=== PATIENT | male | born 1940 | race Caucasian/White ===

== ENCOUNTER 2022-06-18 13:34 | Outpatient (CLI) | payer MEDICARE, BC, SELFPAY ==
[2022-06-18 22:10] LABS: Chloride* 102 mmol/L (96-114); Potassium* 4.6 mmol/L (3.6-5.1); Sodium* 139 mmol/L (135-149)
[2022-06-18 22:12] LABS: Bilirubin Total* 0.9 mg/dL (0.1-1.5); Carbon Dioxide* 30 mmol/L (20-32); Cholesterol* 133 mg/dL (90-199); Creatinine* 0.8 mg/dL (0.5-1.5); Estimated Glomerular Filt Rate 89 ml/min
[2022-06-18 22:13] LABS: Alanine Aminotransferase* 23 U/L (4-50); Alkaline Phosphatase* 107 U/L (40-150); Aspartate Amino Transferase* 30 U/L (12-35); Blood Urea Nitrogen* 15 mg/dL (7-30); Calcium* 8.9 mg/dL (8.4-10.6); Glucose* 88 mg/dL (60-115); HDL Cholesterol* 60 mg/dL (>=40); LDL Cholesterol Calculated 57 mg/dL (<100); Magnesium* 1.9 mg/dL (1.5-2.6); Total Protein* 6.3 g/dL (6.0-8.3); Triglycerides* 82 mg/dL (40-149)
[2022-06-18 22:19] LABS: Creatinine Urine 123.2 mg/dL
[2022-06-18 22:20] LABS: NT Pro B Type NatriureticPept* 338 PG/mL (0-450)
[2022-06-18 22:24] LABS: Microalbumin Creatinine Ratio 0 mg/g (0-30); Microalbumin Urine 1 mg/dL
[2022-06-18 22:41] LABS: PSA Screen* 0.87 ng/mL (0.10-4.00)
[2022-06-18 23:01] LABS: Vitamin B12* 244 pg/mL (243-894)
== END 2022-06-18 13:35 | disposition home or self-care (01) ==
PROVIDERS: PCP Family Medicine; Visit Provider Family Medicine
DX: Z00.00 Encounter for general adult medical examination without abnormal findings (principal); E78.5 Hyperlipidemia, unspecified; I10 Essential (primary) hypertension; I25.10 Atherosclerotic heart disease of native coronary artery without angina pectoris; Z12.5 Encounter for screening for malignant neoplasm of prostate; I21.9 Acute myocardial infarction, unspecified; R06.09 Other forms of dyspnea
CPT/HCPCS: 80053; 80061; 82043; 82570; 82607; 83735; 83880; 84153

== ENCOUNTER 2022-06-19 13:39 | Outpatient (CLI) | payer MEDICARE, BC, SELFPAY ==
[2022-06-23 09:54] LABS: Cryptosporidium by PCR Not Detected; Cyclospora cayetanensis by PCR Not Detected; Dientamoeba fragilis by PCR Not Detected; Entamoeba histolytica by PCR Not Detected; Giardia by PCR Not Detected
== END 2022-06-19 13:40 | disposition home or self-care (01) ==
PROVIDERS: PCP Family Medicine; Visit Provider Family Medicine
DX: R19.7 Diarrhea, unspecified (principal)
CPT/HCPCS: 82270; 87045; 87046; 87427; 87505

== ENCOUNTER 2023-08-19 14:36 | Outpatient (CLI) | payer MEDICARE, BC, SELFPAY | END 2023-08-19 14:37 | disposition home or self-care (01) | LOC: FRMREF 14:38 | PROVIDERS: PCP Family Medicine; Visit Provider Dermatology | DX: I10 Essential (primary) hypertension (principal); L30.9 Dermatitis, unspecified | CPT/HCPCS: 80053 ==

== ENCOUNTER 2024-01-31 11:02 | Outpatient (CLI) | payer MEDICARE, BC, SELFPAY | END 2024-01-31 11:03 | disposition home or self-care (01) | PROVIDERS: PCP Physician Assistant Medical; Visit Provider Physician Assistant Medical | DX: I10 Essential (primary) hypertension (principal); E78.5 Hyperlipidemia, unspecified; I25.810 Atherosclerosis of coronary artery bypass graft(s) without angina pectoris | CPT/HCPCS: 80053; 80061; 84443 ==

== ENCOUNTER 2024-03-21 16:27 | Inpatient (IN) | payer MEDICARE, BC, SELFPAY ==
[2024-03-21] VITALS (24 sets, daily range): BP systolic 85–117; BP diastolic 26–68; PULSE 51–81; RESP 18; TEMP 36.3–36.4; O2SAT 92–100; BMI 22.3
--- NOTE | 2024-03-21 16:52 | CRLHL7_ITS ---
For Patients: As a result of the Century Cures Act, medical imaging exams and procedure reports are released immediately into your electronic medical record. You may view this report before your referring provider. If you have questions, please contact your health care provider. INDICATION: Abdominal pain. Diarrhea. TECHNIQUE: Multiplanar CT examination of the abdomen and pelvis was performed after the administration of 84 mL Omnipaque 350 intravenous contrast. COMPARISON: None. FINDINGS: Lower chest: No focal consolidation. Normal heart size. No pleural effusions or pneumothorax. Subsegmental atelectasis. Small hiatal hernia. Liver: Unremarkable. Gallbladder: Unremarkable. Biliary: Unremarkable. Pancreas: Within normal limits. Spleen: Unremarkable. Adrenal glands: Unremarkable. Renal/ureters/bladder: Normal in size and symmetrically enhancing. No obstructive uropathy. No hydronephrosis or obstructive urinary calculi. No suspicious renal masses. The ureters appear unremarkable. Underdistended bladder, however appears severely thick-walled diffusely. Pelvis: Mildly enlarged prostate. Gastrointestinal: Mild wall thickening and hyperenhancement involving loops of nondistended fluid-filled small bowel diffusely. There is also mild wall thickening involving the fluid-filled colon throughout its entirety. No bowel obstruction. Nonvisualized appendix. No significant colonic diverticulosis. Vasculature: No aortic aneurysm. The portal vein remains patent. Severe atherosclerotic calcifications. Lymph nodes: No pathologic lymphadenopathy by size criteria. Peritoneum: No free fluid or pneumoperitoneum. No drainable fluid collections. Abdominal wall/soft tissues: Unremarkable. Bones: No acute osseous abnormalities. IMPRESSION: 1. Findings compatible with a nonspecific infectious versus inflammatory enterocolitis. No bowel obstruction. 2. Severe diffuse bladder wall thickening, raises the possibility of an underlying cystitis. Advise correlation with urinalysis. 3. Small hiatal hernia. Please note that all CT scans at this facility use dose modulation, iterative reconstruction, and/or weight-based dosing when appropriate to reduce radiation dose to as low as reasonably achievable. Dictated by Isidro Vázquez MD @ 03/21/2024 7:06:51 PM (Electronically Signed)
--- NOTE | 2024-03-21 17:03 | ED_ITS ---
HPI - General Adult General Chief complaint: Weakness Stated complaint: weakness Time Seen by Provider: 03/21/24 16:34 Source: patient Mode of arrival: EMS Limitations: no limitations History of Present Illness HPI narrative: Patient is an 83-year-old male with a history of hypertension, coronary artery disease presenting to the emergency department for weakness and diarrhea. States he has been having issues with diarrhea for the past month. Was hospitalized and dilute with for UTI and blood in his stool it was placed on antibiotics and discharged. Has not noticed any blood in his stool since then but cannot say for certain that there has not been any. States the diarrhea has been on and off since then and his most recent formed stool was about 2 weeks ago. States since then it has been watery. States he has been having watery diarrhea all day today and he was on the toilet for about 2 hours prior to arrival he states. He also had episode of emesis and he was given Zofran by EMS. Patient denies fevers or chills but does feel weak and lightheaded. Denies chest pain, shortness of breath, dizziness, numbness, headache, vision changes. Is having some mild generalized abdominal pain. Has not had any dysuria. Was on antibiotics for the UTI last month but no antibiotics since then. Related Data Home Medications ?Medication ?Instructions ?Recorded ?Confirmed aspirin 81 mg tablet,delayed 81 mg PO QDAY 03/19/22 01/31/24 release hydroxyzine HCl 25 mg tablet mg PO 05/06/23 01/31/24 Previous Rx's ?Medication ?Instructions ?Recorded azathioprine 50 mg tablet 50 mg PO BID #60 tabs 08/24/23 albuterol sulfate 90 mcg/actuation 2 puff inhalation Q4-6H PRN 01/31/24 aerosol inhaler shortness of breath or wheezing #8.5 grams atorvastatin 80 mg tablet 80 mg PO QDAY #90 tabs 01/31/24 clopidogrel 75 mg tablet 75 mg PO QDAY #90 tabs 01/31/24 lisinopril 20 mg tablet 20 mg PO DAILY #90 tabs 01/31/24 metoprolol succinate 25 mg 25 mg PO QDAY #90 tabs 01/31/24 tablet,extended release 24 hr montelukast 10 mg tablet 10 mg PO QPM #90 tabs 01/31/24 tamsulosin 0.4 mg capsule 0.4 mg PO QDAY #90 caps 01/31/24 tiotropium bromide 18 mcg capsule 1 cap inhalation QDAY #90 01/31/24 with inhalation device (Spiriva inhalations with HandiHaler) Allergies Allergy/AdvReac Type Severity Reaction Status Date / Time No Known Drug Allergies Allergy Verified 03/21/24 18:55 Review of Systems Status of ROS: Reports: 10 or more systems reviewed and unremarkable except as noted in History and below PFSH PFS Medical History History of NV (myocardial infarction) ?I25.2 - Old myocardial infarction (ICD-10) Back pain ?M54.9 - Dorsalgia, unspecified (ICD-10) Actinic keratosis of right cheek ?L57.0 - Actinic keratosis (ICD-10) History of myocardial infarct at age greater than 60 years ?I25.2 - Old myocardial infarction (ICD-10) Surgical History History of colonoscopy with polypectomy ?Z98.890 - Other specified postprocedural states (ICD-10) ?Z86.010 - Personal history of colonic polyps (ICD-10) History of cataract extraction ?Z98.49 - Cataract extraction status, unspecified eye (ICD-10) Family History Father Cancer Social History Narrative: Retired from [employer] cigar smoker consumes alcohol occasionally does not use illicit drugs Smoking Status: Current every day smoker Do you use any of these nicotine containing products: None Second hand tobacco smoke exposure: No How often do you have a drink containing alcohol: never How often do you have six or more drinks on one occasion: Never AUDIT-C Alcohol total score: 0 Non-prescribed substance use: denies use service: No Exam Narrative: Exam Narrative: Const: Well-nourished, Well-developed, in mild distress Eyes: PERRL, no conjunctival injection, and symmetrical lids HENT: Atraumatic external nose and ears. Moist mucous membranes. Neck: Symmetric, trachea midline, No thyromegaly. CVS: RRR, No murmurs or gallops. Peripheral pulses 2+ and equal in all extremities RESP: Unlabored respiratory effort. Clear to auscultation bilaterally. GI: Diffuse mild abdominal tenderness, Nondistended, No rebound or guarding. MSK:Extremities w/o deformity, Normal Active ROM Skin: Warm, Dry. No rashes or lesions. Neuro: Normal Muscle tone, No focal neurological deficits. Psych: Awake, Alert, & Oriented x3. Appropriate mood and affect. Const: Vital Signs, click to edit/add: Vital Signs - 24 hr 03/21/24 16:34 03/21/24 16:55 03/21/24 16:59 Temperature 97.4 F L Pulse Rate 60 58 L Pulse Rate [Right Pulse Oximeter] 60 Respiratory Rate 18 Blood Pressure 96/52 L Blood Pressure [Ri ght Upper Arm] 95/52 L Pulse Oximetry 97 99 99 [facility] 03/21/24 17:00 03/21/24 17:02 03/21/24 17:03 Temperature Pulse Rate 51 L 53 L 51 L Pulse Rate [Right Pulse Oximeter] Respiratory Rate Blood Pressure 95/46 L Blood Pressure [Ri ght Upper Arm] Pulse Oximetry 99 100 99 Oxygen Delivery Vt thod 03/21/24 17:15 03/21/24 17:23 03/21/24 17:30 Temperature Pulse Rate 65 64 51 L Pulse Rate [Right Pulse Oximeter] Respiratory Rate Blood Pressure 101/50 L Blood Pressure [Ri ght Upper Arm] Pulse Oximetry 95 97 96 Oxygen Delivery Vt thod 03/21/24 17:42 03/21/24 17:45 03/21/24 18:00 Temperature Pulse Rate 60 58 L 56 L Pulse Rate [Right Pulse Oximeter] Respiratory Rate Blood Pressure 96/68 Blood Pressure [Ri ght Upper Arm] Pulse Oximetry 98 98 93 Oxygen Delivery Vt thod 03/21/24 18:02 03/21/24 18:15 03/21/24 18:22 Temperature Pulse Rate 56 L 57 L 56 L Pulse Rate [Right Pulse Oximeter] Respiratory Rate Blood Pressure 102/51 L 85/26 L Blood Pressure [Ri ght Upper Arm] Pulse Oximetry 93 98 98 Oxygen Delivery Vt thod 03/21/24 18:27 03/21/24 18:30 Temperature Pulse Rate 53 L 62 Pulse Rate [Right Pulse Oximeter] Respiratory Rate Blood Pressure 107/50 L Blood Pressure [Ri ght Upper Arm] Pulse Oximetry 96 97 Oxygen Delivery Me thod Course Vital Signs Vital signs: Initial Vital Signs Temperature 97.4 F L 03/21/24 16:34 Temperature Source Temporal Artery Scan 03/21/24 16:34 Pulse Rate 60 03/21/24 16:34 Respiratory Rate 18 03/21/24 16:34 Blood Pressure 95/52 L 03/21/24 16:34 Blood Pressure Mean 66 L 03/21/24 16:34 Blood Pressure Position Supine 03/21/24 16:34 Pulse Oximetry 97 03/21/24 16:34 Oxygen Delivery Method Room Air 03/21/24 16:34 Vital Signs Temperature 97.4 F L 03/21/24 16:34 Pulse Rate 60 03/21/24 16:34 Respiratory Rate 18 03/21/24 16:34 Blood Pressure 95/52 L 03/21/24 16:34 Pulse Oximetry 97 03/21/24 16:34 Oxygen Delivery Method Room Air 03/21/24 16:34 Temperature 97.4 F L 03/21/24 16:34 Pulse Rate 62 03/21/24 18:30 Respiratory Rate 18 03/21/24 16:34 Blood Pressure 107/50 L 03/21/24 18:27 Pulse Oximetry 97 03/21/24 18:30 Oxygen Delivery Method Room Air 03/21/24 16:34 Medications Administered Medications: Discontinued Medications Generic Name Dose Route Start Last Admin Trade Name Freq PRN Reason Stop Dose Admin Sodium Chloride 1,000 mls @ 1,000 mls/hr 03/21/24 17:00 03/21/24 17:08 0.9 % Sodium Chloride 1000 Ml IV 03/21/24 17:59 1,000 mls/hr .Q1H PAM Administration Lactated Ringer's 1,000 mls @ 1,000 mls/hr 03/21/24 18:14 03/21/24 18:15 Lactated Ringers 1000 Ml IV 03/21/24 19:13 1,000 mls/hr .Q1H ONE Administration Medical Decision Making MDM Narrative Medical decision making narrative: Patient is an 83-year-old male presenting to the emergency department for abdominal pain and diarrhea. Diarrhea has been going on for several months now they states that got worse today. He is also hypotensive so I will do a septic workup on him. A L of normal saline was given. Also do CT scan of the abdomen and pelvis along with a CBC, CMP, magnesium, COVID/flu/RSV, lipase, urinalysis, troponin, EKG. He does have history of alcohol abuse and will order ETOH level. His blood pressures came up after the initial L and I will now give him a L of lactated Ringer's. CBC returned with white count 23.14. Hemoglobin is 13.3. This is mostly neutrophil predominant. CMP shows no concerning findings but is lactate is elevated at 4.7. Urinalysis shows signs of a UTI. COVID/flu/RSV is negative. Troponin shows no concerning abnormalities an EKG appears normal. His ethyl alcohol level is 0. He was it is [facility] in [facility] 2 months ago for the same symptoms. At that time he was treated for colitis and septic shock. He had an IVONNE that time that resolved. He also had a white count 13 the lactate of 3.3 while he was there. He was feeling well when he was discharged on January 21 2024. His pressures improved even more after the [address] scan returned showing a ball that is nonspecific for infectious versus inflammatory enterocolitis and diffuse wall bladder thickening that appears to be underlying cystitis. He is having no suprapubic pain at this time. He had a apparent UTI and his last hospitalization to but does not appear like they treated him as a UTI. This may be a chronic issue. He does take azo daily. Patient will be admitted to the hospitalist service at this time. They are agreeable to this plan. Lab Data Labs: Lab Results 03/21/24 03/21/24 03/21/24 Range/Units 16:53 17:00 17:04 WBC 23.14 H (4.50-11.00) K/uL RBC 4.48 (4.30-5.90) m/uL Hgb 13.3 L (13.5-17.5) gm/dL Hct 42.2 (37.0-53.0) % MCV 94 (80-100) fL MCH 30 (26-34) pg MCHC 32 (32-36) gm/dL RDW Coeff of Marv 13.5 (11.5-15.5) % Plt Count 379 (140-440) K/uL Neut % (Auto) 88.7 H (42.0-72.0) % Lymph % (Auto) 4.2 L (20-44) % [place] % (Auto) 6.7 (0.0-11.0) % Eos % (Auto) 0.1 (0.0-7.0) % Baso % (Auto) 0.1 (0.0-3.0) % Neut # (Auto) 20.50 H (1.7-7.0) K/uL Lymph # (Auto) 1.00 (0.90-2.90) K/uL Ma[place]ick # (Auto) 1.60 H (0.00-0.90) K/UL Eos # (Auto) 0.00 (0.00-0.50) K/uL Baso # (Auto) 0.00 (0.00-0.30) K/uL Abs Immat Gran (auto) 0.00 (0.00-0.30) K/uL Imm/Tot Granulo (auto) 0.2 % Sodium 143 (135-149) mmol/L Potassium 3.3 L (3.6-5.1) mmol/L Chloride 109 (96-114) mmol/L Carbon Dioxide 25 (20-32) mmol/L Anion Gap 9 (7-15) mEq/L BUN 17 (7-30) mg/dL Creatinine 1.1 (0.5-1.5) mg/dL Estimated GFR 67 ml/min Glucose 180 H (60-115) mg/dL Lactate 4.7 H* (0.5-1.9) mmol/L Calcium 9.6 (8.4-10.6) mg/dL Magnesium 1.8 (1.5-2.6) mg/dL Total Bilirubin 1.0 (0.1-1.5) mg/dL AST 23 (12-35) U/L ALT 18 (4-50) U/L Alkaline Phosphatase 101 (40-150) U/L Total Protein 6.5 (6.0-8.3) g/dL Albumin 3.8 (3.3-5.0) g/dL Lipase 70 (23-300) U/L Urine Color (Yellow) Urine Appearance (Clear) Urine pH Ur Specific [place] Urine Protein Urine Glucose (UA) Urine Ketones Urine Blood Urine Nitrite Urine Bilirubin Urine Urobilinogen Ur Leukocyte Esterase Urine RBC (0-2) Urine WBC (0-5) Urine WBC Clumps (None) Ur Squamous Epith Cells (None-Few) Amorphous Sediment (None) Urine Bacteria (None) Fine Granular Casts (None) Ethyl Alcohol < 0.01 L (0.01-0.03) % SARS-CoV-2 (PCR) Negative SARS-CoV-2 (Negative) Influenza Type A (PCR) Negative PCR FLU A (Negative) Influenza Type B (PCR) Negative PCR FLU B (Negative) RSV (PCR) Negative PCR RSV (Negative) Lab Acknowledgement POC Troponin I 0.00 L (0.01-0.04) ng/ml 03/21/24 03/21/24 Range/Units 17:47 18:00 WBC (4.50-11.00) K/uL RBC (4.30-5.90) m/uL Hgb (13.5-17.5) gm/dL Hct (37.0-53.0) % MCV (80-100) fL MCH (26-34) pg MCHC (32-36) gm/dL RDW Coeff of Marv (11.5-15.5) % Plt Count (140-440) K/uL Neut % (Auto) (42.0-72.0) % Lymph % (Auto) (20-44) % Maverick % (Auto) (0.0-11.0) % Eos % (Auto) (0.0-7.0) % Baso % (Auto) (0.0-3.0) % Neut # (Auto) (1.7-7.0) K/uL Lymph # (Auto) (0.90-2.90) K/uL [place] # (Auto) (0.00-0.90) K/UL Eos # (Auto) (0.00-0.50) K/uL Baso # (Auto) (0.00-0.30) K/uL Abs Immat Gran (auto) (0.00-0.30) K/uL Imm/Tot Granulo (auto) % Sodium (135-149) mmol/L Potassium (3.6-5.1) mmol/L Chloride (96-114) mmol/L Carbon Dioxide (20-32) mmol/L Anion Gap (7-15) mEq/L BUN (7-30) mg/dL Creatinine (0.5-1.5) mg/dL Estimated GFR ml/min Glucose (60-115) mg/dL Lactate (0.5-1.9) mmol/L Calcium (8.4-10.6) mg/dL Magnesium (1.5-2.6) mg/dL Total Bilirubin (0.1-1.5) mg/dL AST (12-35) U/L ALT (4-50) U/L Alkaline Phosphatase (40-150) U/L Total Protein (6.0-8.3) g/dL Albumin (3.3-5.0) g/dL Lipase (23-300) U/L Urine Color [place] A (Yellow) Urine Appearance Slightly Cloudy A (Clear) Urine pH TNP Ur Specific [place] TNP Urine Protein TNP Urine Glucose (UA) TNP Urine Ketones TNP Urine Blood TNP Urine Nitrite TNP Urine Bilirubin TNP Urine Urobilinogen TNP Ur Leukocyte Esterase TNP Urine RBC 2-5 A (0-2) Urine WBC 50-100 A (0-5) Urine WBC Clumps Many A (None) Ur Squamous Epith Cells Few (None-Few) Amorphous Sediment (None) Urine Bacteria Many A (None) Fine Granular Casts Few A (None) Ethyl Alcohol (0.01-0.03) % SARS-CoV-2 (PCR) (Negative) Influenza Type A (PCR) (Negative) Influenza Type B (PCR) (Negative) RSV (PCR) (Negative) Lab Acknowledgement Test Added POC Troponin I (0.01-0.04) ng/ml Imaging Data CT abdomen pelvis: Attestation: I have reviewed the pertinent imaging results. Radiologist's impression: 1. Findings compatible with a nonspecific infectious versus inflammatory enterocolitis. No bowel obstruction. 2. Severe diffuse bladder wall thickening, raises the possibility of an underlying cystitis. Advise correlation with urinalysis. 3. Small hiatal hernia. Please note that all CT scans at this facility use dose modulation, iterative reconstruction, and/or weight-based dosing when appropriate to reduce radiation dose to as low as reasonably achievable. Dictated by Isidro Vázquez MD @ 03/21/2024 7:06:51 PM ECG Data Attestation: I personally reviewed and interpreted this ECG as follows: Prior ECG tracings: not available for review Interpretation: Normal sinus rhythm with a rate of 64 beats per minute, normal intervals, normal axis, no ST or T-wave abnormalities Discharge Plan Discharge Clinical Impression: Acute UTI, Colitis Sepsis Qualifiers: Sepsis type: sepsis due to unspecified organism Sepsis acute organ dysfunction status: unspecified Qualified Code(s): A41.9 - Sepsis, unspecified organism Patient Disposition: Admitted As Observation Condition: Improved Prescriptions: No Action aspirin 81 mg tablet,delayed release (DR/EC) 81 mg PO QDAY hydroxyzine HCl 25 mg tablet PO atorvastatin 80 mg tablet 80 mg PO QDAY Qty: 90 3RF clopidogrel 75 mg tablet 75 mg PO QDAY Qty: 90 3RF lisinopril 20 mg tablet 20 mg PO DAILY Qty: 90 3RF metoprolol succinate 25 mg tablet extended release 24 hr 25 mg PO QDAY Qty: 90 3RF montelukast 10 mg tablet 10 mg PO QPM Qty: 90 3RF tamsulosin 0.4 mg capsule 0.4 mg PO QDAY Qty: 90 3RF Spiriva with HandiHaler 18 mcg capsule, w/inhalation device 1 cap inhalation QDAY Qty: 90 3RF Rx Instructions: puncture 1 cap using device; one dose = 2 inhalations albuterol sulfate 90 mcg/actuation HFA aerosol inhaler 2 puff inhalation Q4-6H PRN (Reason: shortness of breath or wheezing) Qty: 8.5 3RF azathioprine 50 mg tablet 50 mg PO BID Qty: 60 1RF Follow Up/Referrals: Zuri Swain PA-C [Primary Care Provider] -
[2024-03-21] MEDS: 0.9 % SODIUM CHLORIDE 1000 ml 1,000 ML IV (17:08)
[2024-03-21 17:23] LABS: Basophils Percent Auto 0.1 % (0.0-3.0); Eosinophils Percent Auto 0.1 % (0.0-7.0); Hematocrit 42.2 % (37.0-53.0); Hemoglobin* 13.3 gm/dL (13.5-17.5); Immature Granulocytes Pct Auto 0.2 %; Lymphocytes Percent Auto 4.2 % (20-44); Mean Corpuscular HGB Conc 32 gm/dL (32-36); Mean Corpuscular Hemoglobin 30 pg (26-34); Mean Corpuscular Volume 94 fL (80-100); Monocytes Percent Auto 6.7 % (0.0-11.0); Neutrophils Percent Auto 88.7 % (42.0-72.0); Platelet Count* 379 K/uL (140-440); RDW Coefficient of Variation % 13.5 % (11.5-15.5); Red Blood Count 4.48 m/uL (4.30-5.90); White Blood Count* 23.14 K/uL (4.50-11.00)
[2024-03-21 17:26] LABS: Slide Review Reflex Yes
[2024-03-21 17:39] LABS: Albumin* 3.8 g/dL (3.3-5.0); Chloride* 109 mmol/L (96-114)
[2024-03-21 17:40] LABS: Potassium* 3.3 mmol/L (3.6-5.1); Sodium* 143 mmol/L (135-149)
[2024-03-21 17:42] LABS: Alkaline Phosphatase* 101 U/L (40-150); Anion Gap 9 mEq/L (7-15); Aspartate Amino Transferase* 23 U/L (12-35); Blood Urea Nitrogen* 17 mg/dL (7-30); Carbon Dioxide* 25 mmol/L (20-32); Creatinine* 1.1 mg/dL (0.5-1.5); Estimated Glomerular Filt Rate 67 ml/min; Glucose* 180 mg/dL (60-115); Total Protein* 6.5 g/dL (6.0-8.3)
[2024-03-21 17:43] LABS: Alanine Aminotransferase* 18 U/L (4-50); Calcium* 9.6 mg/dL (8.4-10.6); Lipase* 70 U/L (23-300); Magnesium* 1.8 mg/dL (1.5-2.6)
[2024-03-21 17:54] LABS: Lactate* 4.7 mmol/L (0.5-1.9)
[2024-03-21 18:00] LABS: PCR FLU A Negative PCR FLU A (Negative); PCR FLU B Negative PCR FLU B (Negative); PCR RSV Negative PCR RSV (Negative); SARS PCR* Negative SARS-CoV-2 (Negative)
[2024-03-21] MEDS: LACTATED RINGERS 1000 ML 1,000 ML IV ×2 (18:15→22:54)
[2024-03-21 18:22] LABS: Ethanol* < 0.01 % (0.01-0.03)
[2024-03-21 18:33] LABS: Appearance Urine Slightly Cloudy (Clear); Color Urine Orange (Yellow)
[2024-03-21 18:34] LABS: Bacteria Urine Many; Fine Granular Casts Urine Few; Squamous Epithelial Cell Urine Few (None-Few); WBC Clumps Urine Many; WBC Urine 50-100 (0-5)
[2024-03-21 20:00] LABS: Slide Review Acceptable Review (Acceptable)
--- NOTE | 2024-03-21 20:39 | PM.IMHP1 ---
Hospitalist- H&P: HPI History of Present Illness Date Seen: 03/21/24 Chief complaint: weakness Narrative: Gustavo Hollis is a 83 year old male admitted through the emergency department with weakness and diarrhea. Patient has had chronic problems with diarrhea. Review of records indicates evaluation for this over the past couple years. Most recently he was hospitalized at [facility] in [place] with diarrhea and CT findings of colitis. He was treated with Cipro and Flagyl with no benefit. On that admission he was also 5 found to be in septic shock and treated for UTI. Blood and urine cultures on that admission were negative however. CT showed bladder wall thickening at that point as well. He is not currently having any urinary symptoms. He is not aware of fever. He did have an emesis today but is otherwise been able to eat and drink. There has been no blood in his stool. This morning his diarrhea was quite severe and with this he was quite weak and lightheaded. He felt like he was about to pass out. He reports he had colonoscopy with benign polyps 6 or 7 years ago at [facility]. Those records are currently unavailable. 2 years ago he had stool studies which were negative for the usual stool pathogens. He does take Imodium sometimes at home. Review of Systems Narrative: Patient denies respiratory illness, cough, cold, shortness of breath, fever. Had no chest pain or palpitations. He was hospitalized at [facility] in October of 2022 with hypotension and syncope and dehydration. At that time he also had elevated troponin and elevated lactatic acid [facility] Medical History Alcohol abuse ?F10.10 - Alcohol abuse, uncomplicated (ICD-10) Lactic acidosis ?E87.20 - Acidosis, unspecified (ICD-10) Elevated blood sugar ?R73.9 - Hyperglycemia, unspecified (ICD-10) Chronic cystitis ?N30.20 - Other chronic cystitis without hematuria (ICD-10) History of UT (myocardial infarction) ?I25.2 - Old myocardial infarction (ICD-10) Back pain ?M54.9 - Dorsalgia, unspecified (ICD-10) Actinic keratosis of right cheek ?L57.0 - Actinic keratosis (ICD-10) History of myocardial infarct at age greater than 60 years ?I25.2 - Old myocardial infarction (ICD-10) Surgical History History of colonoscopy with polypectomy ?Z98.890 - Other specified postprocedural states (ICD-10) ?Z86.010 - Personal history of colonic polyps (ICD-10) History of cataract extraction ?Z98.49 - Cataract extraction status, unspecified eye (ICD-10) Family History Father Cancer Social History (Updated 03/21/24 @ 21:04 by Wilner Keane MD) Narrative: He lives with his son and grandson. He smokes cigars, 5-6 per day. He drinks about 4 beers a day plus a whiskey at bedtime. Code status is full What is your current living situation?: I presently have a place to live Problems where you live: no known problems Problems where you live details: none In the past 12 months, utilities in danger of being shut off: no In past 12 months, lack of transportation kept you from medical appts, meetings, work, or getting things needed for daily living: no In the past 12 mos, have been you worried that your food would run out before you had money to buy more?: never true In the past 12 mos, the food you bought just didn't last and you didn't have money to buy more?: never true Highest level of school completed/degree received: high school graduate Smoking Status: Current every day smoker What tobacco products do you use: cigars Do you use any of these nicotine containing products: None Second hand tobacco smoke exposure: No How often do you have a drink containing alcohol: never How many standard drinks containing alcohol do you have on a typical day: 3 or 4 How often do you have six or more drinks on one occasion: Never AUDIT-C Alcohol total score: 1 Non-prescribed substance use: denies use Caffeine: Yes How often does anyone, including family, friends and others, physically hurt you: never How often does anyone, including family, friends and others, insult or talk down to you: never How often does anyone, including family, friends and others, threaten you with harm: never How often does anyone, including family, friends and others, scream or curse at you: never service: No Meds Home Medications and Allergies Home Medications ?Medication ?Instructions ?Recorded ?Confirmed ?Type aspirin 81 mg tablet,delayed 81 mg PO QDAY 03/19/22 03/21/24 History release Allergies Allergy/AdvReac Type Severity Reaction Status Date / Time No Known Drug Allergies Allergy Verified 03/21/24 18:55 Exam Narrative: Exam Narrative: He is alert and appears in no distress. He gives his own history. Eyes are normal. Extraocular movements are full. No facial asymmetry. Oropharynx with dry mucous membranes. Otherwise normal. Neck is supple without mass or adenopathy. No tenderness. No jugular venous distension. Respirations are clear to auscultation he has diminished breath sounds in all lung simmons. Fair air exchange all lung simmons. No wheezing or crackles. Cardiovascular: S1, S2, 2/6 harsh systolic murmur heard best at the right upper sternal border. Relatively regular rhythm. Abdomen: Bowel sounds are present. Abdomen is soft without tenderness or mass. Extremities without edema. He has diminished but present pedal pulses. He moves all 4 extremities well. No rash. Const: Vital Signs, click to edit/add: Vital Signs - 24 hr 03/21/24 16:34 03/21/24 16:55 03/21/24 16:59 Temperature 97.4 F L Pulse Rate 60 58 L Pulse Rate [Right Pulse Oximeter] 60 Respiratory Rate 18 Blood Pressure 96/52 L Blood Pressure [Ri ght Upper Arm] 95/52 L Pulse Oximetry 97 99 99 Oxygen Delivery Me thod Room Air 03/21/24 17:00 03/21/24 17:02 03/21/24 17:03 Temperature Pulse Rate 51 L 53 L 51 L Pulse Rate [Right Pulse Oximeter] Respiratory Rate Blood Pressure 95/46 L Blood Pressure [Ri ght Upper Arm] Pulse Oximetry 99 100 99 Oxygen Delivery Me thod 03/21/24 17:15 03/21/24 17:23 03/21/24 17:30 Temperature Pulse Rate 65 64 51 L Pulse Rate [Right Pulse Oximeter] Respiratory Rate Blood Pressure 101/50 L Blood Pressure [Ri ght Upper Arm] Pulse Oximetry 95 97 96 Oxygen Delivery Tn thod 03/21/24 17:42 03/21/24 17:45 03/21/24 18:00 Temperature Pulse Rate 60 58 L 56 L Pulse Rate [Right Pulse Oximeter] Respiratory Rate Blood Pressure 96/68 Blood Pressure [Ri ght Upper Arm] Pulse Oximetry 98 98 93 Oxygen Delivery Me thod 03/21/24 18:02 03/21/24 18:15 03/21/24 18:22 Temperature Pulse Rate 56 L 57 L 56 L Pulse Rate [Right Pulse Oximeter] Respiratory Rate Blood Pressure 102/51 L 85/26 L Blood Pressure [Ri ght Upper Arm] Pulse Oximetry 93 98 98 Oxygen Delivery Me thod 03/21/24 18:27 03/21/24 18:30 03/21/24 18:47 Temperature Pulse Rate 53 L 62 81 Pulse Rate [Right Pulse Oximeter] Respiratory Rate Blood Pressure 107/50 L Blood Pressure [Ri ght Upper Arm] Pulse Oximetry 96 97 92 Oxygen Delivery Me thod 03/21/24 19:00 03/21/24 19:02 03/21/24 19:15 Temperature Pulse Rate 56 L 67 68 Pulse Rate [Right Pulse Oximeter] Respiratory Rate Blood Pressure 113/55 L Blood Pressure [Ri ght Upper Arm] Pulse Oximetry 97 97 98 Oxygen Delivery Me thod 03/21/24 19:22 03/21/24 19:30 Temperature Pulse Rate 73 79 Pulse Rate [Right Pulse Oximeter] Respiratory Rate Blood Pressure 117/63 Blood Pressure [Ri ght Upper Arm] Pulse Oximetry 98 100 Oxygen Delivery Me thod Documenting provider has reviewed patient's vital signs: yes Hospitalist - H&P: Result Labs Labs: Short CBC 03/21/24 Range/Units 17:04 WBC 23.14 H (4.50-11.00) K/uL Hgb 13.3 L (13.5-17.5) gm/dL Hct 42.2 (37.0-53.0) % Plt Count 379 (140-440) K/uL BMP 03/21/24 17:04 Sodium 143 Potassium 3.3 L Chloride 109 Carbon Dioxide 25 BUN 17 Creatinine 1.1 Glucose 180 H Calcium 9.6 Liver Function 03/21/24 Range/Units 17:04 Total Bilirubin 1.0 (0.1-1.5) mg/dL AST 23 (12-35) U/L ALT 18 (4-50) U/L Alkaline Phosphatase 101 (40-150) U/L Albumin 3.8 (3.3-5.0) g/dL Urine 03/21/24 Range/Units 18:00 Urine Color [place] A (Yellow) Urine Appearance Slightly Cloudy A (Clear) Urine pH TNP Ur Specific [place] TNP Urine Protein TNP Urine Glucose (UA) TNP Imaging CT scan - abdomen: Radiologist's impression: INDICATION: Abdominal pain. Diarrhea. TECHNIQUE: Multiplanar CT examination of the abdomen and pelvis was performed after the administration of 84 mL Omnipaque 350 intravenous contrast. COMPARISON: None. FINDINGS: Lower chest: No focal consolidation. Normal heart size. No pleural effusions or pneumothorax. Subsegmental atelectasis. Small hiatal hernia. Liver: Unremarkable. Gallbladder: Unremarkable. Biliary: Unremarkable. Pancreas: Within normal limits. Spleen: Unremarkable. Adrenal glands: Unremarkable. Renal/ureters/bladder: Normal in size and symmetrically enhancing. No obstructive uropathy. No hydronephrosis or obstructive urinary calculi. No suspicious renal masses. The ureters appear unremarkable. Underdistended bladder, however appears severely thick-walled diffusely. Pelvis: Mildly enlarged prostate. Gastrointestinal: Mild wall thickening and hyperenhancement involving loops of nondistended fluid-filled small bowel diffusely. There is also mild wall thickening involving the fluid-filled colon throughout its entirety. No bowel obstruction. Nonvisualized appendix. No significant colonic diverticulosis. Vasculature: No aortic aneurysm. The portal vein remains patent. Severe atherosclerotic calcifications. Lymph nodes: No pathologic lymphadenopathy by size criteria. Peritoneum: No free fluid or pneumoperitoneum. No drainable fluid collections. Abdominal wall/soft tissues: Unremarkable. Bones: No acute osseous abnormalities. IMPRESSION: 1. Findings compatible with a nonspecific infectious versus inflammatory enterocolitis. No bowel obstruction. 2. Severe diffuse bladder wall thickening, raises the possibility of an underlying cystitis. Advise correlation with urinalysis. 3. Small hiatal hernia. Assessment and Plan Assessment and plan (1) Sepsis: Problem comment: Hypotension (95/46) elevated lactate (4.7), elevated white blood count (23.1), IVONNE (Cr 1.1 with baseline 0.7). Symptoms suggest GI source with diarrhea. C diff test pending. Urinalysis is markedly abnormal. Treat with Zosyn pending cultures. Hospitalized for this at [facility] in January of 2024. Elevated lactate, hypotension, elevated inflammatory markers, acute kidney injury. Cultures were negative. Final diagnosis was presumed colitis Status: Acute (2) Colitis: Problem comment: Main symptom is diarrhea which is acute on chronic. CT shows enterocolitis. Also acute on chronic. Previous stool testing has been negative. Repeat C diff testing Treated for this in January 2024 at [facility]. Treated with Cipro and Flagyl without obvious benefit Status: Acute (3) Chronic cystitis: Problem comment: CT abdomen shows bladder wall thickening. Recurrent urinary infections and abnormal urinalysis. Treat with Zosyn pending cultures Status: Acute (4) Acute UTI: Problem comment: Too was Zosyn pending culture Status: Acute (5) Elevated blood sugar: Problem comment: History of elevated blood sugars without diagnosis of diabetes. Obtain A1c and monitor Status: Acute (6) Lactic acidosis: Problem comment: Recurrent problem with hospitalizations. Thought to be due to infection. Possibly other causes including chronic alcohol abuse. Status: Acute (7) Alcohol abuse: Problem comment: Reports 4 beers during the day and whiskey at bedtime. Denies previous problems with alcohol, denies being advised to quit, denies alcohol withdrawal. [facility] protocol Status: Acute (8) Coronary artery disease: Problem comment: No current symptoms Status: Acute (9) Heart murmur: Problem comment: Obtain echo to evaluate. Clinically suspicious for aortic stenosis Status: Acute Plan 83-year-old male admitted to the hospital with clinical sepsis due to enterocolitis and or UTI or other cause. Continue fluid resuscitation, close monitoring of vital signs, antibiotics. Continue to monitor and manage multiple other problems as noted above. Total Time Spent Total Time Spent: Total time spent today is 90 minutes in evaluation and management
[2024-03-21] MEDS: ENOXAPARIN 40 MG/0.4 ML INJ SUBCUT (21:54)
[2024-03-21] MEDS: THIAMINE 100 MG TABLET 250 MG PO (21:54)
[2024-03-21] MEDS: PIPERACILLIN/TAZOBACTAM 3.375 GM in 0.9 % SODIUM CHLORIDE Mini-bag 100 ML IVPB (21:58)
[2024-03-21] MEDS: SODIUM CHLORIDE 0.9 % (FLUSH) 10 ML SYRINGE 5 ML IVF (21:58)
[2024-03-21] MEDS: POTASSIUM BICARB 25 MEQ EFFERVESCENT TAB PO (22:02)
[2024-03-21] MEDS: METOPROLOL SUCCINATE (XL) 25 MG TAB PO (22:18)
[2024-03-21] MEDS: ATORVASTATIN CALCIUM 40 MG TABLET 80 MG PO (22:18)
[2024-03-21] MEDS: ASPIRIN 81 MG TABLET EC PO (22:19)
[2024-03-21] MEDS: TAMSULOSIN HCL 0.4 MG CAPSULE PO (22:19)
[2024-03-21] MEDS: CLOPIDOGREL 75 MG TABLET PO (22:20)
[2024-03-21] MEDS: INSULIN ASPART 100 UNIT/ML SUBCUT (22:21)
[2024-03-21 23:51] LABS: Lactate* 2.1 mmol/L (0.5-1.9)
[2024-03-22] VITALS (11 sets, daily range): BP systolic 99–132; BP diastolic 47–68; PULSE 47–59; RESP 14–16; TEMP 36.4–36.8; O2SAT 93–97
[2024-03-22] MEDS: 5 % DEXTROSE IN LAC RINGER'S 1,000 ML 125 ML IV ×2 (00:24→18:00)
[2024-03-22] MEDS: PIPERACILLIN/TAZOBACTAM 3.375 GM in 0.9 % SODIUM CHLORIDE Mini-bag 100 ML IVPB ×4 (02:36→20:17)
[2024-03-22] MEDS: 0.9 % SODIUM CHLORIDE 250 ml IV (02:37)
[2024-03-22 06:20] LABS: Lactate* 1.3 mmol/L (0.5-1.9)
[2024-03-22 06:29] LABS: Basophils Absolute Auto 0.02 K/uL (0.00-0.30); Basophils Percent Auto 0.3 % (0.0-3.0); Eosinophils Absolute Auto 0.05 K/uL (0.00-0.50); Eosinophils Percent Auto 0.7 % (0.0-7.0); Hemoglobin* 10.2 gm/dL (13.5-17.5); Immature Granulocytes Abs Auto 0.01 K/uL (0.00-0.30); Immature Granulocytes Pct Auto 0.1 %; Lymphocytes Percent Auto 17.5 % (20-44); Mean Corpuscular HGB Conc 32 gm/dL (32-36); Mean Corpuscular Hemoglobin 30 pg (26-34); Mean Corpuscular Volume 94 fL (80-100); Neutrophils Percent Auto 74.4 % (42.0-72.0); Platelet Count* 247 K/uL (140-440); RDW Coefficient of Variation % 13.7 % (11.5-15.5); Red Blood Count 3.39 m/uL (4.30-5.90); White Blood Count* 6.85 K/uL (4.50-11.00)
[2024-03-22 06:30] LABS: Slide Review Reflex No
[2024-03-22 06:38] LABS: Chloride* 111 mmol/L (96-114)
[2024-03-22 06:39] LABS: Potassium* 3.2 mmol/L (3.6-5.1); Sodium* 142 mmol/L (135-149)
[2024-03-22 06:41] LABS: Creatinine* 0.9 mg/dL (0.5-1.5); Est. Creatinine Clearance* 59.47; Estimated Glomerular Filt Rate 86 ml/min
[2024-03-22 06:42] LABS: Anion Gap 3 mEq/L (7-15); Blood Urea Nitrogen* 14 mg/dL (7-30); Carbon Dioxide* 28 mmol/L (20-32)
[2024-03-22 06:43] LABS: Calcium* 8.3 mg/dL (8.4-10.6); Glucose* 137 mg/dL (60-115); Magnesium* 1.7 mg/dL (1.5-2.6)
--- NOTE | 2024-03-22 06:49 | PC.NURSE ---
Pt is alert and oriented x3. Afebrile. No BM overnight. Pt denies pain, chest pain, SOB, and N/V.?Pt slept throughout most of night, night uneventful. ?
[2024-03-22 07:07] LABS: Hemoglobin A1C* 5.7 % (0-5.6)
[2024-03-22] MEDS: TAMSULOSIN HCL 0.4 MG CAPSULE PO (08:47)
[2024-03-22] MEDS: POTASSIUM BICARB 25 MEQ EFFERVESCENT TAB PO ×3 (08:47→12:20)
[2024-03-22] MEDS: CLOPIDOGREL 75 MG TABLET PO (08:48)
[2024-03-22] MEDS: FOLIC ACID 1 MG TABLET PO (08:48)
[2024-03-22] MEDS: THIAMINE 100 MG TABLET 250 MG PO ×2 (08:48→21:27)
[2024-03-22] MEDS: ASPIRIN 81 MG TABLET EC PO (08:48)
[2024-03-22] MEDS: MULTIVITAMIN/MINERALS 1 TABLET 1 TAB PO (08:48)
[2024-03-22 09:50] LABS: Ionized Calcium* 1.16 mmol/L (1.11-1.30)
--- NOTE | 2024-03-22 14:50 | PM.IMPN1 ---
Progress Note: A&P Assessment and plan (1) Sepsis: Problem details: Hypotension (95/46) elevated lactate (4.7), elevated white blood count (23.1), IVONNE (Cr 1.1 with baseline 0.7). Symptoms suggest GI source with diarrhea. C diff test pending. Urinalysis is markedly abnormal. Treat with Zosyn pending cultures. Hospitalized for this at [facility] in January of 2024. Elevated lactate, hypotension, elevated inflammatory markers, acute kidney injury. Cultures were negative. Final diagnosis was presumed colitis - 03/22 hypotension improving, elevated lactate and white count have resolved. Creatinine improving, almost at baseline. C diff pending. Urinalysis is abnormal. Continue Zosyn. Called [facility] today asking about documentation of cultures from hospital stay January 2024. The notes from that hospitalization mention Gram-negative bacteremia however all blood cultures from there reported as negative. It is possible that he had a blood culture from an outside ER that he was at prior to transferring there that was positive, but that information is not available. [facility] was unable to give us any information other than that what they have is negative. Status: Acute (2) Colitis: Problem details: Main symptom is diarrhea which is acute on chronic. CT shows enterocolitis. Also acute on chronic. Previous stool testing has been negative. Repeat C diff testing Treated for this in January 2024 at [facility]. Treated with Cipro and Flagyl without obvious benefit - has not had any bowel movement since yesterday, so I am holding off on any specific treatment for colitis at this time. Monitor. C diff pending. Status: Acute (3) Chronic cystitis: Problem details: CT abdomen shows bladder wall thickening. Recurrent urinary infections and abnormal urinalysis. Treat with Zosyn pending cultures Status: Acute (4) Acute UTI: Problem details: As above, Zosyn pending culture Status: Acute (5) Elevated blood sugar: Problem details: History of elevated blood sugars without diagnosis of diabetes. - hemoglobin A1c is 5.7% today. Status: Acute (6) Lactic acidosis: Problem details: Recurrent problem with hospitalizations. Thought to be due to infection. Possibly other causes including chronic alcohol abuse. Status: Resolved (7) Alcohol abuse: Problem details: Reports 4 beers during the day and whiskey at bedtime. Denies previous problems with alcohol, denies being advised to quit, denies alcohol withdrawal. Reports last drink was Wednesday. Denies history of alcohol withdrawal symptoms or seizure. CIWA protocol; scores are so far low. Status: Acute (8) Coronary artery disease: Problem details: No current symptoms Status: Acute (9) Heart murmur: Problem details: Preliminary echo results show aortic valve is not well seen, YRN VTI 1.12 centimeters squared, ADA V max 1.17 cm2. Awaiting final read. Status: Acute Subjective Date Seen: 03/22/24 Interval history: Gustavo feels better today. He denies pain. He complains of diarrhea for 2 hours yesterday, but has not had a BM overnight or today yet. Exam Narrative: Exam Narrative: General: No acute distress. Awake, alert, oriented x3. No pallor. No jaundice. Oropharynx: Clear. Mucous membranes moist. Cardiovascular: Regular rate and rhythm. Grade 2/6 systolic murmur loudest at the right upper sternal border. Respiratory: Clear to auscultation bilaterally. No wheezes or crackles. Abdomen: Bowel sounds hyperactive. Soft, nondistended, nontender. Extremities: No pedal edema. Const: Vital Signs, click to edit/add: Vital Signs - 24 hr 03/21/24 16:34 03/21/24 16:55 03/21/24 16:59 Temperature 97.4 F L Pulse Rate 60 58 L Pulse Rate [Pulse Oximeter] Pulse Rate [Right Pulse Oximeter] 60 Respiratory Rate 18 Blood Pressure 96/52 L Blood Pressure [Ri ght Arm] Blood Pressure [Ri ght Upper Arm] 95/52 L Pulse Oximetry 97 99 99 Oxygen Delivery Me thod Room Air 03/21/24 17:00 03/21/24 17:02 03/21/24 17:03 Temperature Pulse Rate 51 L 53 L 51 L Pulse Rate [Pulse Oximeter] Pulse Rate [Right Pulse Oximeter] Respiratory Rate Blood Pressure 95/46 L Blood Pressure [Ri ght Arm] Blood Pressure [Ri ght Upper Arm] Pulse Oximetry 99 100 99 Oxygen Delivery Me thod 03/21/24 17:15 03/21/24 17:23 03/21/24 17:30 Temperature Pulse Rate 65 64 51 L Pulse Rate [Pulse Oximeter] Pulse Rate [Right Pulse Oximeter] Respiratory Rate Blood Pressure 101/50 L Blood Pressure [Ri ght Arm] Blood Pressure [Ri ght Upper Arm] Pulse Oximetry 95 97 96 Oxygen Delivery Hi thod 03/21/24 17:42 03/21/24 17:45 03/21/24 18:00 Temperature Pulse Rate 60 58 L 56 L Pulse Rate [Pulse Oximeter] Pulse Rate [Right Pulse Oximeter] Respiratory Rate Blood Pressure 96/68 Blood Pressure [Ri ght Arm] Blood Pressure [Ri ght Upper Arm] Pulse Oximetry 98 98 93 [facility] 03/21/24 18:02 03/21/24 18:15 03/21/24 18:22 Temperature Pulse Rate 56 L 57 L 56 L Pulse Rate [Pulse Oximeter] Pulse Rate [Right Pulse Oximeter] Respiratory Rate Blood Pressure 102/51 L 85/26 L Blood Pressure [Ri ght Arm] Blood Pressure [Ri ght Upper Arm] Pulse Oximetry 93 98 98 Oxygen Delivery [facility] 03/21/24 18:27 03/21/24 18:30 03/21/24 18:47 Temperature Pulse Rate 53 L 62 81 Pulse Rate [Pulse Oximeter] Pulse Rate [Right Pulse Oximeter] Respiratory Rate Blood Pressure 107/50 L Blood Pressure [Ri ght Arm] Blood Pressure [Ri ght Upper Arm] Pulse Oximetry 96 97 92 Oxygen Delivery [facility] 03/21/24 19:00 03/21/24 19:02 03/21/24 19:15 Temperature Pulse Rate 56 L 67 68 Pulse Rate [Pulse Oximeter] Pulse Rate [Right Pulse Oximeter] Respiratory Rate Blood Pressure 113/55 L Blood Pressure [Ri ght Arm] Blood Pressure [Ri ght Upper Arm] Pulse Oximetry 97 97 98 Oxygen Delivery [facility] 03/21/24 19:22 03/21/24 19:30 03/21/24 20:39 Temperature 97.5 F L Pulse Rate 73 79 Pulse Rate [Pulse Oximeter] 62 Pulse Rate [Right Pulse Oximeter] Respiratory Rate 18 Blood Pressure 117/63 Blood Pressure [Ri ght Arm] 117/64 Blood Pressure [Ri ght Upper Arm] Pulse Oximetry 98 100 96 Oxygen Delivery [facility] Room Air 03/22/24 00:19 03/22/24 00:19 03/22/24 00:19 Temperature 97.7 F Pulse Rate 55 L Pulse Rate [Pulse Oximeter] 56 L 56 L Pulse Rate [Right Pulse Oximeter] Respiratory Rate 16 16 Blood Pressure Blood Pressure [Ri ght Arm] 103/54 L Blood Pressure [Ri ght Upper Arm] Pulse Oximetry 95 Oxygen Delivery Me thod Room Air 03/22/24 02:30 03/22/24 04:00 03/22/24 07:00 Temperature 98.3 F Pulse Rate 57 L Pulse Rate [Pulse Oximeter] 50 L 49 L Pulse Rate [Right Pulse Oximeter] Respiratory Rate 16 16 Blood Pressure Blood Pressure [Ri ght Arm] 99/53 L 99/53 L Blood Pressure [Ri ght Upper Arm] Pulse Oximetry 97 96 Oxygen Delivery Me thod Room Air Room Air 03/22/24 08:00 03/22/24 10:58 Temperature 97.6 F 97.9 F Pulse Rate Pulse Rate [Pulse Oximeter] 53 L 53 L Pulse Rate [Right Pulse Oximeter] Respiratory Rate 14 16 Blood Pressure Blood Pressure [Ri ght Arm] 102/63 118/68 Blood Pressure [Ri ght Upper Arm] Pulse Oximetry 95 96 Oxygen Delivery Hi thod Room Air Room Air Labs Labs: Laboratory Results - last 24 hr 03/21/24 03/21/24 03/21/24 16:53 17:00 17:04 WBC 23.14 H RBC 4.48 Hgb 13.3 L Hct 42.2 MCV 94 MCH 30 MCHC 32 RDW Coeff of Marv 13.5 Plt Count 379 Neut % (Auto) 88.7 H Lymph % (Auto) 4.2 L [place] % (Auto) 6.7 Eos % (Auto) 0.1 Baso % (Auto) 0.1 Neut # (Auto) 20.50 H Lymph # (Auto) 1.00 [place] # (Auto) 1.60 H Eos # (Auto) 0.00 Baso # (Auto) 0.00 Abs Immat Gran (auto) 0.00 Imm/Tot Granulo (auto) 0.2 Diff Slide Review Acceptable Review Sodium 143 Potassium 3.3 L Chloride 109 Carbon Dioxide 25 Anion Gap 9 BUN 17 Creatinine 1.1 Estimated Creat Clear Estimated GFR 67 Glucose 180 H Hemoglobin A1c Lactate 4.7 H* Calcium 9.6 Ionized Calcium [place] Magnesium 1.8 Total Bilirubin 1.0 AST 23 ALT 18 Alkaline Phosphatase 101 C-Reactive Protein Total Protein 6.5 Albumin 3.8 Lipase 70 Urine Color Urine Appearance Urine pH Ur Specific [place] Urine Protein Urine Glucose (UA) Urine Ketones Urine Blood Urine Nitrite Urine Bilirubin Urine Urobilinogen Ur Leukocyte Esterase Urine RBC Urine WBC Urine WBC Clumps Ur Squamous Epith Cells Amorphous Sediment Urine Bacteria Fine Granular Casts Ethyl Alcohol < 0.01 L SARS-CoV-2 (PCR) Negative SARS-CoV-2 Influenza Type A (PCR) Negative PCR FLU A Influenza Type B (PCR) Negative PCR FLU B RSV (PCR) Negative PCR RSV Lab Acknowledgement POC Troponin I 0.00 L 03/21/24 03/21/24 03/21/24 17:47 18:00 23:48 WBC RBC Hgb Hct MCV MCH MCHC RDW Coeff of Marv Plt Count Neut % (Auto) Lymph % (Auto) [place] % (Auto) Eos % (Auto) Baso % (Auto) Neut # (Auto) Lymph # (Auto) [place] # (Auto) Eos # (Auto) Baso # (Auto) Abs Immat Gran (auto) Imm/Tot Granulo (auto) Diff Slide Review Sodium Potassium Chloride Carbon Dioxide Anion Gap BUN Creatinine Estimated Creat Clear Estimated GFR Glucose Hemoglobin A1c Lactate 2.1 H Calcium Ionized Calcium [place] Magnesium Total Bilirubin AST ALT Alkaline Phosphatase C-Reactive Protein Total Protein Albumin Lipase Urine Color [place] A Urine Appearance Slightly Cloudy A Urine pH TNP Ur Specific [place] TNP Urine Protein TNP Urine Glucose (UA) TNP Urine Ketones TNP Urine Blood TNP Urine Nitrite TNP Urine Bilirubin TNP Urine Urobilinogen TNP Ur Leukocyte Esterase TNP Urine RBC 2-5 A Urine WBC 50-100 A Urine WBC Clumps Many A Ur Squamous Epith Cells Few Amorphous Sediment Urine Bacteria Many A Fine Granular Casts Few A Ethyl Alcohol SARS-CoV-2 (PCR) Influenza Type A (PCR) Influenza Type B (PCR) RSV (PCR) Lab Acknowledgement Test Added POC Troponin I 03/22/24 03/22/24 06:03 09:33 WBC 6.85 RBC 3.39 L Hgb 10.2 L Hct 32.0 L MCV 94 MCH 30 MCHC 32 RDW Coeff of Marv 13.7 Plt Count 247 Neut % (Auto) 74.4 H Lymph % (Auto) 17.5 L [place] % (Auto) 7.0 Eos % (Auto) 0.7 Baso % (Auto) 0.3 Neut # (Auto) 5.10 Lymph # (Auto) 1.20 [place] # (Auto) 0.50 Eos # (Auto) 0.05 Baso # (Auto) 0.02 Abs Immat Gran (auto) 0.01 Imm/Tot Granulo (auto) 0.1 Diff Slide Review Sodium 142 Potassium 3.2 L Chloride 111 Carbon Dioxide 28 Anion Gap 3 L BUN 14 Creatinine 0.9 Estimated Creat Clear 59.47 Estimated GFR 86 Glucose 137 H Hemoglobin A1c 5.7 H Lactate 1.3 Calcium 8.3 L Ionized Calcium [place] 1.16 Magnesium 1.7 Total Bilirubin AST ALT Alkaline Phosphatase C-Reactive Protein 2.0 H Total Protein Albumin Lipase Urine Color Urine Appearance Urine pH Ur Specific [place] Urine Protein Urine Glucose (UA) Urine Ketones Urine Blood Urine Nitrite Urine Bilirubin Urine Urobilinogen Ur Leukocyte Esterase Urine RBC Urine WBC Urine WBC Clumps Ur Squamous Epith Cells Amorphous Sediment Urine Bacteria Fine Granular Casts Ethyl Alcohol SARS-CoV-2 (PCR) Influenza Type A (PCR) Influenza Type B (PCR) RSV (PCR) Lab Acknowledgement Test Added POC Troponin I
--- NOTE | 2024-03-22 14:50 | NUTR.NU ---
RDN with MD consult for nutritional consult related to colitis with chronic diarrhea. Patient was hospitalized for diarrhea and weakness at [facility] in January of 2024. RDN attempt to visit with patient, however he was not available on all attempts. RDN will attempt to visit at later date.
[2024-03-22 17:22] LABS: CDIFFEPI 027 PRESUMPTIVE NEGATIVE (Negative)
[2024-03-22 18:09] LABS: C.Difficile POSITIVE (Negative)
--- NOTE | 2024-03-22 18:40 | PC.NURSE ---
End of shift note (): Pt A&Ox3, pleasant, and cooperative. VSS. Denies N/V/CP/SOB. Pt reported no pain throughout the shift. Pt was up independently, SBA. Pt tolerated his diet well. BM collected today, see diagnostics. ?Fluids running @ 125 ml/hour. Pt is now resting following meal, call light within reach.
[2024-03-22] MEDS: ATORVASTATIN CALCIUM 40 MG TABLET 80 MG PO (21:26)
[2024-03-22] MEDS: VANCOMYCIN 125 MG CAPSULE PO (21:27)
[2024-03-22] MEDS: ENOXAPARIN 40 MG/0.4 ML INJ SUBCUT (21:27)
[2024-03-22] MEDS: SODIUM CHLORIDE 0.9 % (FLUSH) 10 ML SYRINGE 5 ML IVF (21:27)
[2024-03-22] MEDS: ACETAMINOPHEN 325 MG TABLET 650 MG PO (23:40)
[2024-03-23] VITALS (7 sets, daily range): BP systolic 116–136; BP diastolic 63–76; PULSE 46–53; RESP 12–22; TEMP 36.3–36.7; O2SAT 95–99
[2024-03-23] MEDS: PIPERACILLIN/TAZOBACTAM 3.375 GM in 0.9 % SODIUM CHLORIDE Mini-bag 100 ML IVPB ×4 (03:10→20:03)
[2024-03-23] MEDS: 0.9 % SODIUM CHLORIDE 250 ml IV (03:11)
[2024-03-23] MEDS: 5 % DEXTROSE IN LAC RINGER'S 1,000 ML 125 ML IV ×2 (04:06→18:11)
--- NOTE | 2024-03-23 06:49 | PC.NURSE ---
End of shift note [id number]: Pt alert & oriented x 4 and able to make needs known. He is hard of hearing at baseline. Pt reports having one small loose stool yesterday during the day and was noted to have one loose continent stool this morning. CIWAs noted to be 0. Pt on telemetry with asymptomatic sinus bradycardia (heart rate of 47) noted which is not a new finding. Pt has been denying pain when asked. He transfers/ambulates with SBA and remains on 5% dextrose in LR at 125 mL/hr. Blood glucose noted to be 106 at HS last evening. Pt has been on RA.
[2024-03-23 06:52] LABS: Basophils Absolute Auto 0.02 K/uL (0.00-0.30); Basophils Percent Auto 0.3 % (0.0-3.0); Eosinophils Percent Auto 1.6 % (0.0-7.0); Hematocrit 32.3 % (37.0-53.0); Hemoglobin* 10.3 gm/dL (13.5-17.5); Immature Granulocytes Abs Auto 0.02 K/uL (0.00-0.30); Immature Granulocytes Pct Auto 0.3 %; Mean Corpuscular HGB Conc 32 gm/dL (32-36); Mean Corpuscular Hemoglobin 31 pg (26-34); Mean Corpuscular Volume 96 fL (80-100); Monocytes Percent Auto 8.7 % (0.0-11.0); Neutrophils Absolute Auto 4.35 K/uL (1.7-7.0); Neutrophils Percent Auto 70.1 % (42.0-72.0); Platelet Count* 233 K/uL (140-440); Red Blood Count 3.38 m/uL (4.30-5.90); White Blood Count* 6.21 K/uL (4.50-11.00)
[2024-03-23 07:07] LABS: Chloride* 112 mmol/L (96-114); Potassium* 3.6 mmol/L (3.6-5.1); Slide Review Reflex No; Sodium* 143 mmol/L (135-149)
[2024-03-23 07:10] LABS: Anion Gap 2 mEq/L (7-15); Blood Urea Nitrogen* 14 mg/dL (7-30); Carbon Dioxide* 29 mmol/L (20-32); Creatinine* 0.9 mg/dL (0.5-1.5); Estimated Glomerular Filt Rate 86 ml/min
[2024-03-23 07:11] LABS: Calcium* 8.3 mg/dL (8.4-10.6); Glucose* 115 mg/dL (60-115)
[2024-03-23] MEDS: ASPIRIN 81 MG TABLET EC PO (09:28)
[2024-03-23] MEDS: CLOPIDOGREL 75 MG TABLET PO (09:28)
[2024-03-23] MEDS: FOLIC ACID 1 MG TABLET PO (09:29)
[2024-03-23] MEDS: MULTIVITAMIN/MINERALS 1 TABLET 1 TAB PO (09:29)
[2024-03-23] MEDS: TAMSULOSIN HCL 0.4 MG CAPSULE PO (09:29)
[2024-03-23] MEDS: THIAMINE 100 MG TABLET 250 MG PO ×2 (09:30→20:34)
[2024-03-23] MEDS: VANCOMYCIN 125 MG CAPSULE PO ×4 (09:31→20:35)
--- NOTE | 2024-03-23 12:10 | P.IMPN_ITS ---
Progress Note: A&P Assessment and plan (1) Sepsis: Problem details: Hypotension (95/46) elevated lactate (4.7), elevated white blood count (23.1), IVONNE (Cr 1.1 with baseline 0.7). Symptoms suggest GI source with diarrhea. C diff test pending. Urinalysis is markedly abnormal. Treat with Zosyn pending cultures. Hospitalized for this at [facility] in January of 2024. Elevated lactate, hypotension, elevated inflammatory markers, acute kidney injury. Cultures were negative. Final diagnosis was presumed colitis - 03/22 hypotension improving, elevated lactate and white count have resolved. Creatinine improving, almost at baseline. C diff pending. Urinalysis is abnormal. Continue Zosyn. Called [facility] today asking about documentation of cultures from hospital stay January 2024. The notes from that hospitalization mention Gram-negative bacteremia however all blood cultures from there reported as negative. It is possible that he had a blood culture from an outside ER that he was at prior to transferring there that was positive, but that information is not available. [facility] was unable to give us any information other than that what they have is negative. 03/23-Positive for c diff; started on PO vanco Status: Acute (2) Colitis: Problem details: Main symptom is diarrhea which is acute on chronic. CT shows enterocolitis. Also acute on chronic. Previous stool testing has been negative. Repeat C diff testing Treated for this in January 2024 at [facility]. Treated with Cipro and Flagyl without obvious benefit - has not had any bowel movement since yesterday, so I am holding off on any specific treatment for colitis at this time. Monitor. 03/23-Positive for c diff;continue po vanco Status: Acute (3) Chronic cystitis: Problem details: CT abdomen shows bladder wall thickening. Recurrent urinary infections and abnormal urinalysis. Treat with Zosyn pending cultures Status: Acute (4) Alcohol abuse: Problem details: Reports 4 beers during the day and whiskey at bedtime. Denies previous problems with alcohol, denies being advised to quit, denies alcohol withdrawal. Reports last drink was Wednesday. Denies history of alcohol withdrawal symptoms or seizure. CIWA protocol; scores are so far low. Status: Acute (5) Heart murmur: Problem details: echo-aortic valve mild stenosi, EF 61%, normal LV wall thickness, size Status: Acute (6) Coronary artery disease: Problem details: found to be bradycardic; metoprolol decreased from 25 to 12.5 mg; hold if HR<60 Status: Acute Plan Dispo-likely home 1-2 days; monitor diarrhea; bradycardia; response to PO vanco Subjective Date Seen: 03/23/24 Interval history: pt continues to have diarrhea overnight found to have positive c diff; started on PO vanco denies abdominal pain Exam Narrative: Exam Narrative: Gen: no acute distress HEENT: NCAT EOMI mmm CV: RRR normal s1 s2 Lungs: CTAB Abd: Soft,nt, nd Neuro: Alert, oriented, CN grossly intact; nonfocal screening?exam Psych: appropriate affect MSK: age appropriate muscle mass Skin; Warm, dry no rash on face Const: Vital Signs, click to edit/add: Vital Signs - 24 hr 03/22/24 15:00 03/22/24 15:00 03/22/24 19:49 Temperature 98.2 F 97.9 F Pulse Rate 59 L Pulse Rate [Pulse Oximeter] 54 L 55 L Respiratory Rate 16 16 Blood Pressure [Ri ght Arm] 132/68 111/65 Pulse Oximetry 97 96 Oxygen Delivery Me thod Room Air Room Air 03/22/24 23:00 03/22/24 23:12 03/22/24 23:35 Temperature 97.7 F Pulse Rate 47 L Pulse Rate [Pulse Oximeter] 52 L 52 L Respiratory Rate 16 16 Blood Pressure [Ri ght Arm] 106/47 L Pulse Oximetry 93 Oxygen Delivery Ny thod Room Air 03/23/24 03:00 03/23/24 07:00 03/23/24 07:00 Temperature 97.5 F L 97.3 F L Pulse Rate 46 L Pulse Rate [Pulse Oximeter] 48 L 51 L Respiratory Rate 16 18 Blood Pressure [Ri ght Arm] 122/71 135/70 Pulse Oximetry 95 96 Oxygen Delivery Ny thod Room Air Room Air 03/23/24 11:00 Temperature 97.5 F L Pulse Rate Pulse Rate [Pulse Oximeter] 53 L Respiratory Rate 16 Blood Pressure [Ri ght Arm] 126/74 Pulse Oximetry 97 Oxygen Delivery Ny thod Room Air Labs Labs: Laboratory Results - last 24 hr 03/22/24 03/23/24 16:20 06:33 WBC 6.21 RBC 3.38 L Hgb 10.3 L Hct 32.3 L MCV 96 MCH 31 MCHC 32 RDW Coeff of Marv 14.0 Plt Count 233 Neut % (Auto) 70.1 Lymph % (Auto) 19.0 L [place] % (Auto) 8.7 Eos % (Auto) 1.6 Baso % (Auto) 0.3 Neut # (Auto) 4.35 Lymph # (Auto) 1.20 [place] # (Auto) 0.50 Eos # (Auto) 0.10 Baso # (Auto) 0.02 Abs Immat Gran (auto) 0.02 Imm/Tot Granulo (auto) 0.3 Sodium 143 Potassium 3.6 Chloride 112 Carbon Dioxide 29 Anion Gap 2 L BUN 14 Creatinine 0.9 Estimated Creat Clear 61.70 Estimated GFR 86 Glucose 115 Calcium 8.3 L Stl C. diff Tox B Gene POSITIVE A* Stl C. diff [id number] PRESUMPTIVE NEGATIVE
[2024-03-23] MEDS: IPRAT-ALBUT 0.5-2.5 MG/3 ML NEB 1 NEB IH ×2 (14:29→20:33)
--- NOTE | 2024-03-23 18:27 | PC.NURSE ---
Pt A&Ox3, pleasant, and cooperative.VSS on RA. [place] at baseline.?Denies N/V/CP/SOB. Pt reported no pain throughout the shift. Pt was up independently, SBA. Pt tolerated his diet well. Pt reported a small, soft BM this AM @ 0930. CIWAs noted to be 0 throughout the shift. Fluids running at 125 mL/hour. Pt appears resting with call light within reach.?New IV placed in R wrist.
[2024-03-23] MEDS: ENOXAPARIN 40 MG/0.4 ML INJ SUBCUT (20:33)
[2024-03-23] MEDS: ATORVASTATIN CALCIUM 40 MG TABLET 80 MG PO (20:33)
[2024-03-23] MEDS: SODIUM CHLORIDE 0.9 % (FLUSH) 10 ML SYRINGE 5 ML IVF (20:34)
[2024-03-23] MEDS: INSULIN ASPART 100 UNIT/ML SUBCUT (20:41)
--- NOTE | 2024-03-23 22:39 | PC.NURSE ---
End of shift note [id number]: Pt alert & oriented x 4 and [place] at baseline. He transfers/ambulates with SBA and has been continent of bladder this evening. No BM noted or reported this evening. Pt continues to have asymptomatic bradycardia which is not a new finding. Pt has been afebrile this evening and remains on D5 LR at 125 mL/hr. He remains on IV Zosyn. Blood glucose of 168 at HS.
[2024-03-24] VITALS (7 sets, daily range): BP systolic 122–159; BP diastolic 66–80; PULSE 54–67; RESP 16–20; TEMP 36.6–36.7; O2SAT 95–96
[2024-03-24] MEDS: PIPERACILLIN/TAZOBACTAM 3.375 GM in 0.9 % SODIUM CHLORIDE Mini-bag 100 ML IVPB (02:00)
[2024-03-24] MEDS: 5 % DEXTROSE IN LAC RINGER'S 1,000 ML 125 ML IV (02:09)
[2024-03-24] MEDS: 0.9 % SODIUM CHLORIDE 250 ml IV (02:10)
--- NOTE | 2024-03-24 06:29 | PC.NURSE ---
Pt A&O. VSS. SBA to and from bathroom and tolerated well. Slept well throughout the night. Up to the bathroom x2 to void.
[2024-03-24 06:38] LABS: Basophils Absolute Auto 0.02 K/uL (0.00-0.30); Basophils Percent Auto 0.3 % (0.0-3.0); Eosinophils Absolute Auto 0.09 K/uL (0.00-0.50); Eosinophils Percent Auto 1.4 % (0.0-7.0); Hematocrit 30.8 % (37.0-53.0); Hemoglobin* 9.8 gm/dL (13.5-17.5); Immature Granulocytes Abs Auto 0.01 K/uL (0.00-0.30); Immature Granulocytes Pct Auto 0.2 %; Lymphocytes Percent Auto 17.3 % (20-44); Mean Corpuscular HGB Conc 32 gm/dL (32-36); Mean Corpuscular Hemoglobin 30 pg (26-34); Mean Corpuscular Volume 95 fL (80-100); Monocytes Percent Auto 9.6 % (0.0-11.0); Neutrophils Absolute Auto 4.46 K/uL (1.7-7.0); Neutrophils Percent Auto 71.2 % (42.0-72.0); Platelet Count* 222 K/uL (140-440); Red Blood Count 3.23 m/uL (4.30-5.90); White Blood Count* 6.26 K/uL (4.50-11.00)
[2024-03-24 06:44] LABS: Slide Review Reflex No
[2024-03-24 06:55] LABS: Chloride* 111 mmol/L (96-114); Sodium* 142 mmol/L (135-149)
[2024-03-24 06:56] LABS: Potassium* 3.4 mmol/L (3.6-5.1)
[2024-03-24 06:58] LABS: Creatinine* 0.7 mg/dL (0.5-1.5); Estimated Glomerular Filt Rate 93 ml/min
[2024-03-24 06:59] LABS: Anion Gap 4 mEq/L (7-15); Blood Urea Nitrogen* 11 mg/dL (7-30); Calcium* 8.3 mg/dL (8.4-10.6); Carbon Dioxide* 27 mmol/L (20-32); Glucose* 132 mg/dL (60-115)
[2024-03-24] MEDS: POTASSIUM CHLORIDE 10 MEQ CAPSULE ER 40 MEQ PO (08:27)
[2024-03-24] MEDS: ASPIRIN 81 MG TABLET EC PO (08:48)
[2024-03-24] MEDS: CLOPIDOGREL 75 MG TABLET PO (08:48)
[2024-03-24] MEDS: TAMSULOSIN HCL 0.4 MG CAPSULE PO (08:48)
[2024-03-24] MEDS: THIAMINE 100 MG TABLET 250 MG PO (08:48)
[2024-03-24] MEDS: CIPROFLOXACIN 500 MG TABLET PO (08:48)
[2024-03-24] MEDS: MULTIVITAMIN/MINERALS 1 TABLET 1 TAB PO (08:48)
[2024-03-24] MEDS: VANCOMYCIN 125 MG CAPSULE PO (08:48)
[2024-03-24] MEDS: FOLIC ACID 1 MG TABLET PO (08:48)
[2024-03-24] MEDS: IPRAT-ALBUT 0.5-2.5 MG/3 ML NEB 1 NEB IH (08:49)
--- NOTE | 2024-03-24 09:58 | NUTR.NU ---
RDN with MD consult for nutritional consult. Patient admitted for sepsis, weakness and chronic diarrhea, found to have c. diff. Patient was hospitalized for diarrhea and weakness at [facility] in January of 2024. Current weight 166lb 6.4oz; height 5ft 11in; BMI 23.2 kg/m2. Current diet is Regular. Meal intakes have been adequate at 75%+, however sometimes will only eat 2 meals per day. Visited with patient whom reported good appetite and less frequent stools. RDN offered diet education related to low fiber diet to decrease amount of stools. Patient declined but accepted educational materials. RDN encouraged patient to let staff if he has any questions or concerns. Continue to monitor.
--- NOTE | 2024-03-24 10:11 | PM.DS1 ---
DS: Providers Provider Date Seen: 03/24/24 Date of admission: 03/21/24 20:55 Primary care physician: Zuri Swain PA-C Admitting Clinician: Wilner Keane MD Consults: 03/21/24 20:20 Consult to Nutrition [CONS] Routine Comment: Reason for consult:: Nutritional Consult Consult to Occupational Therapy [CONS] Routine Comment: Reason(s) for OT Consult:: Evaluate and Treat Any Restrictions?:: No Restrictions Consult to Physical Therapy [CONS] Routine Comment: Reason(s) for PT Consult:: Evaluate and Treat Any Restrictions?:: No Restrictions Attending Physician on discharge: Florentino Up MD Date of Discharge: 03/24/24 DS: Diagnosis Discharge Diagnosis (1) Sepsis: Status: Acute Problem details: Hypotension (95/46) elevated lactate (4.7), elevated white blood count (23.1), IVONNE (Cr 1.1 with baseline 0.7). Symptoms suggest GI source with diarrhea. C diff test pending. Urinalysis is markedly abnormal. Treat with Zosyn pending cultures. Hospitalized for this at [facility] in January of 2024. Elevated lactate, hypotension, elevated inflammatory markers, acute kidney injury. Cultures were negative. Final diagnosis was presumed colitis - 03/22 hypotension improving, elevated lactate and white count have resolved. Creatinine improving, almost at baseline. C diff pending. Urinalysis is abnormal. Continue Zosyn. Called [facility] today asking about documentation of cultures from hospital stay January 2024. The notes from that hospitalization mention Gram-negative bacteremia however all blood cultures from there reported as negative. It is possible that he had a blood culture from an outside ER that he was at prior to transferring there that was positive, but that information is not available. [facility] was unable to give us any information other than that what they have is negative. 03/23-Positive for c diff; started on PO vanco, Urine culture grew Ecoli; transitioned from zosyn to cipro. (2) Heart murmur: Status: Acute Problem details: echo-aortic valve mild stenosi, EF 61%, normal LV wall thickness, size (3) Alcohol abuse: Status: Acute Problem details: Reports 4 beers during the day and whiskey at bedtime. Denies previous problems with alcohol, denies being advised to quit, denies alcohol withdrawal. Denies history of alcohol withdrawal symptoms or seizure. CIWA protocol; scores are so far low. (4) Chronic cystitis: Status: Acute Problem details: CT abdomen shows bladder wall thickening. Recurrent urinary infections and abnormal urinalysis. Treat with Zosyn culture grew Ecoli (5) Colitis: Status: Acute Problem details: Main symptom is diarrhea which is acute on chronic. CT shows enterocolitis. Also acute on chronic. Previous stool testing has been negative. Repeat C diff testing Treated for this in January 2024 at [facility] in [place]? Treated with Cipro and Flagyl without obvious benefit - has not had any bowel movement since yesterday, so I am holding off on any specific treatment for colitis at this time. Monitor. 03/23-Positive for c diff;continue po vanco (6) Coronary artery disease: Status: Acute Problem details: found to be bradycardic; metoprolol initially decreased from 25 to 12.5 mg; but ultimately discontinued due to bradycardia. DS: Summary Hospital Course Hospital Course: Hospitalist- H&P: HPI History of Present Illness Date Seen: 03/21/24 Chief complaint: weakness Narrative: Gustavo Hollis is a 83 year old male admitted through the emergency department with weakness and diarrhea. Patient has had chronic problems with diarrhea. Review of records indicates evaluation for this over the past couple years. Most recently he was hospitalized at [facility] in [place] with diarrhea and CT findings of colitis. He was treated with Cipro and Flagyl with no benefit. On that admission he was also 5 found to be in septic shock and treated for UTI. Blood and urine cultures on that admission were negative however. CT showed bladder wall thickening at that point as well. He is not currently having any urinary symptoms. He is not aware of fever. He did have an emesis today but is otherwise been able to eat and drink. There has been no blood in his stool. This morning his diarrhea was quite severe and with this he was quite weak and lightheaded. He felt like he was about to pass out. He reports he had colonoscopy with benign polyps 6 or 7 years ago at [facility]. Those records are currently unavailable. 2 years ago he had stool studies which were negative for the usual stool pathogens. He does take Imodium sometimes at home. HOSPITAL SUMMARY The patient was found to have C diff; started on PO vanco. He was found to have Ecoli UTI; transitioned to cipro. He was evaluated by PT therapy. Alcohol cessation counseling advised. CIWA score 0 on day of discharge. no sign of alcohol withdrawal symptoms. He will need close monitoring in clinic for follow up. If diarrhea continues consider referral to Infectious Disease. Time Spent with Patient Time attestation: Total time spent providing and/or coordinating discharge services: Exam Narrative: Exam Narrative: Gen: no acute distress HEENT: NCAT EOMI mmm CV: RRR normal s1 s2 Lungs: CTAB Abd: Soft,nt, nd Neuro: Alert, oriented, CN grossly intact; nonfocal screening?exam Psych: appropriate affect MSK: age appropriate muscle mass Skin; Warm, dry no rash on face Const: Vital Signs, click to edit/add: Vital Signs - 24 hr 03/23/24 11:00 03/23/24 14:41 03/23/24 15:00 Temperature 97.5 F L 97.4 F L Pulse Rate 53 L Pulse Rate [Pulse Oximeter] 53 L 49 L Respiratory Rate 16 12 Blood Pressure [Le ft Radial Artery] Blood Pressure [Ri ght Arm] 126/74 136/76 Pulse Oximetry 97 99 Oxygen Delivery Me thod Room Air Room Air 03/23/24 19:00 03/23/24 19:00 03/23/24 23:00 Temperature 98.0 F 98.0 F Pulse Rate 47 L Pulse Rate [Pulse Oximeter] 51 L 51 L Respiratory Rate 16 16 Blood Pressure [Le ft Radial Artery] 119/64 119/64 Blood Pressure [Ri ght Arm] 136/76 Pulse Oximetry 97 97 Oxygen Delivery Me thod Room Air Room Air 03/23/24 23:00 03/23/24 23:00 03/24/24 02:36 Temperature 97.9 F 98.0 F Pulse Rate Pulse Rate [Pulse Oximeter] 51 L 51 L 57 L Respiratory Rate 22 16 20 Blood Pressure [Le ft Radial Artery] 116/63 122/66 Blood Pressure [Ri ght Arm] Pulse Oximetry 95 95 Oxygen Delivery Me thod Room Air Room Air 03/24/24 06:00 03/24/24 08:22 03/24/24 08:22 Temperature 98.0 F 98 F Pulse Rate Pulse Rate [Pulse Oximeter] 57 L 54 L 54 L Respiratory Rate 20 16 16 Blood Pressure [Le ft Radial Artery] 122/66 Blood Pressure [Ri ght Arm] 159/80 H Pulse Oximetry 95 96 Oxygen Delivery Me thod Room Air Room Air 03/24/24 09:14 03/24/24 09:23 Temperature 98 F Pulse Rate 67 Pulse Rate [Pulse Oximeter] 54 L Respiratory Rate 16 Blood Pressure [Le ft Radial Artery] Blood Pressure [Ri ght Arm] 159/80 H Pulse Oximetry 96 Oxygen Delivery Me thod Room Air DS: Data Data Completed and Pending Completed studies during hospitalization: CT AP IMPRESSION: 1. Findings compatible with a nonspecific infectious versus inflammatory enterocolitis. No bowel obstruction. 2. Severe diffuse bladder wall thickening, raises the possibility of an underlying cystitis. Advise correlation with urinalysis. 3. Small hiatal hernia. Labs on day of discharge: Labs from last 24 hours 03/24/24 06:29 WBC 6.26 RBC 3.23 L Hgb 9.8 L Hct 30.8 L MCV 95 MCH 30 MCHC 32 RDW Coeff of Marv 14.0 Plt Count 222 Neut % (Auto) 71.2 Lymph % (Auto) 17.3 L [place] % (Auto) 9.6 Eos % (Auto) 1.4 Baso % (Auto) 0.3 Neut # (Auto) 4.46 Lymph # (Auto) 1.10 [place] # (Auto) 0.60 Eos # (Auto) 0.09 Baso # (Auto) 0.02 Abs Immat Gran (auto) 0.01 Imm/Tot Granulo (auto) 0.2 Sodium 142 Potassium 3.4 L Chloride 111 Carbon Dioxide 27 Anion Gap 4 L BUN 11 Creatinine 0.7 Estimated Creat Clear 61.70 Estimated GFR 93 Glucose 132 H Calcium 8.3 L Discharge Plan Discharge Disposition: Home, Self-Care Date of Admission: 03/21/24 20:55 Attending Provider on Discharge: Florentino Up Primary Care Provider: Zuri Swain Condition: Improved Anticipated Discharge Date/Time: 03/24/24 09:22 Discharge Medications: New ciprofloxacin HCl 500 mg tablet 500 mg PO BID Qty: 6 0RF vancomycin 125 mg capsule 125 mg PO QID Qty: 56 0RF Rx Instructions: Take 1 tablet four times daily for 14 days Continued aspirin 81 mg tablet,delayed release (DR/EC) 81 mg PO DAILY lisinopril 20 mg tablet 20 mg PO DAILY Qty: 90 3RF albuterol sulfate 90 mcg/actuation HFA aerosol inhaler 2 puff inhalation Q4-6H PRN (Reason: shortness of breath or wheezing) Qty: 8.5 3RF clopidogrel 75 mg tablet 75 mg PO DAILY tamsulosin 0.4 mg capsule 0.4 mg PO DAILY montelukast 10 mg tablet 10 mg PO QPM Held atorvastatin 80 mg tablet 80 mg PO DAILY Hold Instructions: Resume on 04/07/24. Discontinued metoprolol succinate 25 mg tablet extended release 24 hr 25 mg PO DAILY Discharge Orders: Discharge Order (Routine); Ordered 03/24/24 Ordered By: Florentino Up Activity Level: Activity as Tolerated Activity Detail: Resume previous home diet Follow Up Appointments: Franca Fan PA-C [Physician Manager [employer]] - 03/29/24 9:00 am ([facility] and [facility] for follow up. PCP wasn't available during desired time frame for follow up. ) Zuri Swain PA-C [Primary Care Provider] - () Forms: [employer] Info Instructions
--- NOTE | 2024-03-24 13:38 | PC.NURSE ---
Discharge: Patient pleasant and cooperative. Patient vitally stable, lungs diminished, BS WNL, IV removed, catheter intact. Patient SBA with ambulation. Patient denies pain. Patient tolerating regular diet, urinating, and had 1 BM today. Patient signed belongings sheet and discharge form with no further questions. Patient's daughter had questions, questions answered. Patient left the floor to home by wheelchair at 1310.
== END 2024-03-24 13:10 | disposition home or self-care (01) | DRG 872 ==
LOC: ED 19:42 → MEDSURG 20:23
PROVIDERS: Family Medicine; Admitting Provider Family Medicine; Emergency Provider Student in an Organized Health Care Education/Training Program; PCP Physician Assistant Medical; Visit Provider Family Medicine
DX: A41.9 Sepsis, unspecified organism (principal); N39.0 Urinary tract infection, site not specified; A04.72 Enterocolitis due to Clostridium difficile, not specified as recurrent; E87.20 Acidosis, unspecified; B96.20 Unspecified Escherichia coli [E. coli] as the cause of diseases classified elsewhere; K81.1 Chronic cholecystitis; I95.9 Hypotension, unspecified; R73.9 Hyperglycemia, unspecified; R00.1 Bradycardia, unspecified; T44.7X5A Adverse effect of beta-adrenoreceptor antagonists, initial encounter; F10.10 Alcohol abuse, uncomplicated; R01.1 Cardiac murmur, unspecified; I10 Essential (primary) hypertension; I25.10 Atherosclerotic heart disease of native coronary artery without angina pectoris; I25.2 Old myocardial infarction
CPT/HCPCS: 36415; 74177; 80048; 80053; 81001; 82077; 82330; 82962; 83036; 83605; 83690; 83735; 84484; 85025; 86140; 87086; 87186; 87493; 87631; 93005; 93306; 97116; 97161; 97165; 97530; 99284; 99285; A9153; A9270; J1650; J2543; J7030; J7050; J7120; Q9967

== ENCOUNTER 2024-04-24 13:33 | Inpatient (IN) | payer MEDICARE, BC, SELFPAY ==
[2024-04-24] VITALS (23 sets, daily range): BP systolic 73–131; BP diastolic 43–75; PULSE 50–107; RESP 16–26; TEMP 35.8–36.9; O2SAT 89–98; BMI 23.7; BMI 21.4
--- NOTE | 2024-04-24 13:41 | CRLHL7_ITS ---
For Patients: As a result of the Cures Act, medical imaging exams and procedure reports are released immediately into your electronic medical record. You may view this report before your referring provider. If you have questions, please contact your health care provider. INDICATION: Cough. Vomiting. COMPARISON: 01/18/2024 TECHNIQUE: 1 view (2 images). FINDINGS: Medical Devices: None. Lung Volumes: Adequate inspiration. No significant atelectasis. Lungs: Clear lungs. Pleura and Pleural spaces: No significant pleural effusion. No pneumothorax. Mediastinum: Normal cardiomediastinal silhouette. Bony Thorax and Soft Tissues: No significant incidental findings. IMPRESSION: No acute findings. Dictated by Stan Gonzales MD @ 04/27/2024 2:13:18 PM (Electronically Signed)
--- NOTE | 2024-04-24 13:42 | ED.GENADULT ---
HPI - General Adult General Chief complaint: Diarrhea Stated complaint: diarrhea vomiting Time Seen by Provider: 04/24/24 13:34 Source: patient and EMS Mode of arrival: EMS Limitations: other History of Present Illness HPI narrative: Patient is an 83-year-old male who lives at home with his son and grandson. Arrives via EMS after onset of vomiting and diarrhea abruptly today. He does have a recent hospitalization here with diarrhea and a little bit of vomiting at that time. Had a CT scan that showed colitis and ultimately was positive for C diff, treated with oral vancomycin. Also has seemingly a somewhat chronic cystitis, was treated with Cipro for a positive UA at that time as well. He says he was having some abdominal pain earlier although that has resolved. He has not had any bloody stools, is not vomiting blood. Paramedics report blood pressures were initially low and he was pale and near syncopal while on the toilet. Blood pressures did come up with a half a L of normal saline, he is not currently feeling lightheaded or dizzy. He is doing a lot of retching and half coughing in the room, has not had further emesis. Further history obtained later, patient actually brought a stool sample in to clinic this morning, he had noted some diarrhea yesterday after having had solid stools after treatment for C diff last month. Stool sample was brought in to clinic and was positive for C diff. UA was negative. Related Data Home Medications ?Medication ?Instructions ?Recorded ?Confirmed aspirin 81 mg tablet,delayed 81 mg PO DAILY 03/19/22 04/24/24 release atorvastatin 80 mg tablet 80 mg PO DAILY 03/22/24 04/24/24 clopidogrel 75 mg tablet 75 mg PO DAILY 03/22/24 04/24/24 montelukast 10 mg tablet 10 mg PO QPM 03/22/24 04/24/24 tamsulosin 0.4 mg capsule 0.4 mg PO DAILY 03/22/24 04/24/24 metoprolol succinate 25 mg 25 mg PO DAILY 03/29/24 04/24/24 tablet,extended release 24 hr Previous Rx's ?Medication ?Instructions ?Recorded albuterol sulfate 90 mcg/actuation 2 puff inhalation Q4-6H PRN 01/31/24 aerosol inhaler shortness of breath or wheezing #8.5 grams lisinopril 20 mg tablet 20 mg PO DAILY #90 tabs 01/31/24 ciprofloxacin HCl 250 mg tablet 250 mg PO BID 7 days #14 tabs 04/24/24 (Cipro) fidaxomicin 200 mg tablet 200 mg PO Q12H #20 tabs 04/24/24 Allergies Allergy/AdvReac Type Severity Reaction Status Date / Time No Known Drug Allergies Allergy Verified 04/24/24 08:09 Review of Systems Status of ROS: Reports: 10 or more systems reviewed and unremarkable except as noted in History and below [facility] Medical History (Updated 04/25/24 @ 11:20 by Franca Biggs MD) Heart murmur ?R01.1 - Cardiac murmur, unspecified (ICD-10) Eczema ?L30.9 - Dermatitis, unspecified (ICD-10) Erectile dysfunction ?N52.9 - Male erectile dysfunction, unspecified (ICD-10) Sepsis ?A41.9 - Sepsis, unspecified organism (ICD-10) Alcohol abuse ?F10.10 - Alcohol abuse, uncomplicated (ICD-10) Lactic acidosis ?E87.20 - Acidosis, unspecified (ICD-10) Elevated blood sugar ?R73.9 - Hyperglycemia, unspecified (ICD-10) History of GA (myocardial infarction) ?I25.2 - Old myocardial infarction (ICD-10) Back pain ?M54.9 - Dorsalgia, unspecified (ICD-10) Actinic keratosis of right cheek ?L57.0 - Actinic keratosis (ICD-10) History of myocardial infarct at age greater than 60 years ?I25.2 - Old myocardial infarction (ICD-10) Surgical History (Updated 04/25/24 @ 11:18 by Franca Biggs MD) Presence of stent in coronary artery ?Z95.5 - Presence of coronary angioplasty implant and graft (ICD-10) History of colonoscopy with polypectomy ?Z98.890 - Other specified postprocedural states (ICD-10) ?Z86.010 - Personal history of colonic polyps (ICD-10) History of cataract extraction ?Z98.49 - Cataract extraction status, unspecified eye (ICD-10) Family History Father Cancer Social History Narrative: He lives with his son and grandson. He smokes cigars, 5-6 per day. He drinks about 4 beers a day plus a whiskey at bedtime. Code status is full What is your current living situation?: I presently have a place to live Problems where you live: no known problems Problems where you live details: None In the past 12 months, utilities in danger of being shut off: no In past 12 months, lack of transportation kept you from medical appts, meetings, work, or getting things needed for daily living: no In the past 12 mos, have been you worried that your food would run out before you had money to buy more?: never true In the past 12 mos, the food you bought just didn't last and you didn't have money to buy more?: never true Highest level of school completed/degree received: high school graduate Smoking Status: Current every day smoker What tobacco products do you use: cigars Do you use any of these nicotine containing products: None Second hand tobacco smoke exposure: No How often do you have a drink containing alcohol: monthly or less Alcohol type: beer How many standard drinks containing alcohol do you have on a typical day: 3 or 4 How often do you have six or more drinks on one occasion: Never AUDIT-C Alcohol total score: 2 Non-prescribed substance use: denies use Caffeine: Yes (daily coffee) How often does anyone, including family, friends and others, physically hurt you: never How often does anyone, including family, friends and others, insult or talk down to you: never How often does anyone, including family, friends and others, threaten you with harm: never How often does anyone, including family, friends and others, scream or curse at you: never service: Yes Exam Narrative: Exam Narrative: Vital signs as noted above. In general, an alert, retching elderly male. Head: Normocephalic, atraumatic. Eyes: Pupils are equal reactive. Extraocular movements are full. Conjunctivae are normal. ENT: Mucous membranes are moist. Neck: Supple without lymphadenopathy. Heart: Regular rate and rhythm. No murmur or rub. Lungs: A few scattered crackles but no increased work of breathing or wheezing. Abdomen: Soft and nontender. No organomegaly. Extremities: Well perfused. No edema. No calf tenderness. Pulses intact. Neurologic: Patient is alert and oriented to person and place. Speech is fluent. Face is symmetric. Moves all extremities equally. Affect: Normal. Skin: Warm and dry. Well perfused. Const: Vital Signs, click to edit/add: Vital Signs - 24 hr 04/24/24 13:37 04/24/24 13:39 04/24/24 13:45 Temperature 96.4 F L Pulse Rate 86 107 H Pulse Rate [Pulse Oximeter] 85 Respiratory Rate 26 H Blood Pressure Blood Pressure [Ri ght Upper Arm] 131/75 Pulse Oximetry 94 94 95 Oxygen Delivery Me thod Room Air 04/24/24 14:00 04/24/24 14:15 04/24/24 14:30 Temperature Pulse Rate 57 L 64 76 Pulse Rate [Pulse Oximeter] Respiratory Rate Blood Pressure Blood Pressure [Ri ght Upper Arm] Pulse Oximetry 94 93 89 Oxygen Delivery Me thod 04/24/24 14:45 04/24/24 14:47 04/24/24 14:50 Temperature Pulse Rate 65 67 Pulse Rate [Pulse Oximeter] Respiratory Rate Blood Pressure 85/43 L Blood Pressure [Ri ght Upper Arm] 85/43 L Pulse Oximetry 90 93 Oxygen Delivery Me thod 04/24/24 15:00 04/24/24 15:00 04/24/24 15:02 Temperature Pulse Rate 72 66 Pulse Rate [Pulse Oximeter] Respiratory Rate Blood Pressure 105/52 L Blood Pressure [Ri ght Upper Arm] 105/52 L Pulse Oximetry 94 94 Oxygen Delivery Me thod 04/24/24 15:03 04/24/24 15:15 04/24/24 15:17 Temperature Pulse Rate 67 74 77 Pulse Rate [Pulse Oximeter] Respiratory Rate Blood Pressure 109/55 L Blood Pressure [Ri ght Upper Arm] Pulse Oximetry 95 96 96 Oxygen Delivery Me thod 04/24/24 15:30 04/24/24 15:32 04/24/24 15:50 Temperature Pulse Rate 64 67 Pulse Rate [Pulse Oximeter] 63 Respiratory Rate 18 Blood Pressure 98/51 L Blood Pressure [Ri ght Upper Arm] 105/66 Pulse Oximetry 95 93 96 Oxygen Delivery Me thod Room Air Documenting provider has reviewed patient's vital signs: yes Course Course ED Course: Records reviewed with history as outlined in the HPI. Symptoms today could be related to recurrent colitis but with prominence of vomiting consider other etiologies such as obstruction, pancreatitis, cholecystitis, gastritis, gastroenteritis, among others. Labs ordered, will give a L of saline, some Zofran as he did not have any anti emetics in the ambulance. Holding off on imaging for now, will see how labs look. Abdominal exam is benign and he denies abdominal pain. Patient responded reasonably well to fluids here, after about 800 mL of the 1000 mL bolus that I ordered his blood pressure is 105 systolic. His labs are notable for white blood cell count of 15.07, hemoglobin is 14. Left shift with 87% neutrophils. Electrolytes are pretty normal, creatinine is 1.2, off his baseline closer 2.7. BUN is 15, glucose 173. Lactate elevated today at 5.4. LFTs unremarkable, CRP 1.7 lipase 53. Blood alcohol level is 0. COVID negative. Overall, I have recommended that he stay in the hospital for hydration and observation given his lactic acidosis, hypotension, elevated white blood cell count, positive C diff and mild IVONNE. Despite the elevated lactate and white blood cell count, i.e. feel that broad-spectrum antibiotics are more likely to harm than benefit given his known C diff, vomiting and diarrhea likely contributing to volume depletion, absence of fever, abdominal pain. Patient will be admitted to the hospitalist service. Vital Signs Vital signs: Initial Vital Signs Temperature 96.4 F L 04/24/24 13:37 Temperature Source Temporal Artery Scan 04/24/24 13:37 Pulse Rate 85 04/24/24 13:37 Respiratory Rate 26 H 04/24/24 13:37 Blood Pressure 131/75 04/24/24 13:37 Blood Pressure Mean 93 04/24/24 13:37 Pulse Oximetry 94 04/24/24 13:37 Oxygen Delivery Method Room Air 04/24/24 13:37 Vital Signs Temperature 96.4 F L 04/24/24 13:37 Pulse Rate 85 04/24/24 13:37 Respiratory Rate 26 H 04/24/24 13:37 Blood Pressure 131/75 04/24/24 13:37 Pulse Oximetry 94 04/24/24 13:37 Oxygen Delivery Method Room Air 04/24/24 13:37 Temperature 97.8 F 04/25/24 07:00 Pulse Rate 50 L 04/25/24 07:00 Respiratory Rate 18 04/25/24 07:00 Blood Pressure 109/62 04/25/24 07:00 Pulse Oximetry 94 04/25/24 07:00 Oxygen Delivery Method Room Air 04/25/24 07:00 Medications Administered Medications: Generic Name Dose Route Start Last Admin Trade Name Ruel PRN Reason Stop Dose Admin Acetaminophen 650 mg 04/24/24 19:57 04/24/24 20:03 Acetaminophen 325 Mg Tablet PO 650 mg Q6H PRN Administration As needed for fever, headache, or minor pain Aspirin 81 mg 04/25/24 09:00 04/25/24 09:05 Aspirin 81 Mg Tablet Ec PO 81 mg DAILY PAM Administration Atorvastatin Calcium 80 mg 04/24/24 21:00 04/24/24 22:47 Atorvastatin Calcium 40 Mg Tablet PO 80 mg HS PAM Administration Clopidogrel Bisulfate 75 mg 04/25/24 09:00 04/25/24 09:04 Clopidogrel 75 Mg Tablet PO 75 mg DAILY PAM Administration Enoxaparin Sodium 40 mg 04/24/24 21:00 04/24/24 22:47 Enoxaparin 40 Mg/0.4 Ml Inj SUBCUT 40 mg HS PAM Administration Folic Acid 1 mg 04/25/24 09:00 04/25/24 09:04 Folic Acid 1 Mg Tablet PO 1 mg DAILY PAM Administration Sodium Chloride 1,000 mls @ 125 mls/hr 04/25/24 07:30 04/25/24 09:03 0.9 % Sodium Chloride 1000 Ml IV 125 mls/hr .Q8H PAM Administration Midodrine 5 mg 04/25/24 00:15 04/25/24 01:10 Midodrine Hcl 5 Mg Tablet PO 5 mg Q8H PAM Administration Multivitamins/Minerals 1 tab 04/25/24 09:00 04/25/24 09:05 Multivitamin/Minerals 1 Tablet PO 1 tab DAILY PAM Administration Sodium Chloride 5 ml 04/24/24 17:57 04/25/24 01:11 Sodium Chloride 0.9 % (Flush) 10 Ml Syringe IVF 5 ml .FLUSH PRN Administration Sodium Chloride 5 ml 04/24/24 21:00 04/25/24 09:05 Sodium Chloride 0.9 % (Flush) 10 Ml Syringe IVF 5 ml BID PAM Administration Tamsulosin HCl 0.4 mg 04/25/24 09:00 04/25/24 09:05 Tamsulosin Hcl 0.4 Mg Capsule PO 0.4 mg DAILY PAM Administration Thiamine HCl 100 mg 04/24/24 18:30 04/24/24 19:26 Thiamine 100 Mg Tablet PO 04/26/24 18:31 100 mg Q24H PAM Administration Vancomycin HCl 500 mg 04/25/24 09:00 04/25/24 09:05 Vancomycin 125 Mg Capsule PO 500 mg QID PAM Administration Discontinued Medications Generic Name Dose Route Start Last Admin Trade Name Андрейq PRN Reason Stop Dose Admin Sodium Chloride 1,000 mls @ 1,000 mls/hr 04/24/24 13:45 04/24/24 15:44 0.9 % Sodium Chloride 1000 Ml IV 04/24/24 14:44 Infused .Q1H PAM Infusion Sodium Chloride 1,000 mls @ 125 mls/hr 04/24/24 17:57 04/25/24 02:44 0.9 % Sodium Chloride 1000 Ml IV 04/25/24 01:56 0 mls/hr .Q8H PAM Infusion Sodium Chloride 500 mls @ 500 mls/hr 04/24/24 21:56 04/24/24 23:31 0.9 % Sodium Chloride 500 Ml IV 04/24/24 22:55 Infused .Q1H ONE Infusion Sodium Chloride 500 mls @ 500 mls/hr 04/24/24 22:38 04/25/24 00:40 0.9 % Sodium Chloride 500 Ml IV 04/24/24 23:37 Infused .Q1H ONE Infusion Sodium Chloride 500 mls @ 500 mls/hr 04/25/24 07:30 04/25/24 09:04 0.9 % Sodium Chloride 500 Ml IV 04/25/24 08:29 500 mls/hr .Q1H PAM Administration Ondansetron HCl 4 mg 04/24/24 13:34 04/24/24 13:49 Ondansetron 2 Mg/Ml Inj IVP 04/24/24 13:35 4 mg ONCE ONE Administration Potassium Chloride 20 meq 04/24/24 17:57 04/24/24 19:26 Potassium Chloride 10 Meq Capsule Er PO 04/24/24 17:58 20 meq ONCE ONE Administration Vancomycin HCl 125 mg 04/24/24 21:00 04/24/24 22:47 Vancomycin 125 Mg Capsule PO 125 mg QID PAM Administration Medical Decision Making Lab Data Labs: Lab Results 09/09/24 09/09/24 Range/Units 13:50 13:52 WBC 15.07 H (4.50-11.00) K/uL RBC 4.74 (4.30-5.90) m/uL Hgb 14.0 (13.5-17.5) gm/dL Hct 44.2 (37.0-53.0) % MCV 93 (80-100) fL MCH 30 (26-34) pg MCHC 32 (32-36) gm/dL RDW Coeff of Marv 13.5 (11.5-15.5) % Plt Count 270 (140-440) K/uL Neut % (Auto) 86.8 H (42.0-72.0) % Lymph % (Auto) 7.6 L (20-44) % [place] % (Auto) 4.7 (0.0-11.0) % Eos % (Auto) 0.5 (0.0-7.0) % Baso % (Auto) 0.2 (0.0-3.0) % Neut # (Auto) 13.10 H (1.7-7.0) K/uL Lymph # (Auto) 1.10 (0.90-2.90) K/uL [place] # (Auto) 0.70 (0.00-0.90) K/UL Eos # (Auto) 0.10 (0.00-0.50) K/uL Baso # (Auto) 0.00 (0.00-0.30) K/uL Abs Immat Gran (auto) 0.00 (0.00-0.30) K/uL Imm/Tot Granulo (auto) 0.2 % Sodium 142 (135-149) mmol/L Potassium 3.5 L (3.6-5.1) mmol/L Chloride 104 (96-114) mmol/L Carbon Dioxide 26 (20-32) mmol/L Anion Gap 12 (7-15) mEq/L BUN 15 (7-30) mg/dL Creatinine 1.2 (0.5-1.5) mg/dL Estimated Creat Clear 51.42 Estimated GFR 61 ml/min Glucose 173 H (60-115) mg/dL Lactate 5.4 H* (0.5-1.9) mmol/L Calcium 9.9 (8.4-10.6) mg/dL Total Bilirubin 0.8 (0.1-1.5) mg/dL Direct Bilirubin 0.0 (0.0-0.5) mg/dL AST 25 (12-35) U/L ALT 24 (4-50) U/L Alkaline Phosphatase 123 (40-150) U/L C-Reactive Protein 1.7 H (0.5-1.0) mg/dL Total Protein 7.6 (6.0-8.3) g/dL Albumin 4.6 (3.3-5.0) g/dL Lipase 53 (23-300) U/L Ethyl Alcohol < 0.01 L (0.01-0.03) % SARS-CoV-2 (PCR) Negative SARS-CoV-2 (Negative) Influenza Type A (PCR) Negative PCR FLU A (Negative) Influenza Type B (PCR) Negative PCR FLU B (Negative) RSV (PCR) Negative PCR RSV (Negative) Discharge Plan Discharge Clinical Impression: C. difficile colitis, Acidosis, lactic, Acute hypotension
[2024-04-24] MEDS: ONDANSETRON 2 MG/ML inj 4 MG IVP (13:49)
[2024-04-24] MEDS: 0.9 % SODIUM CHLORIDE 1000 ml 1,000 ML IV (13:51)
[2024-04-24 14:02] LABS: Basophils Percent Auto 0.2 % (0.0-3.0); Eosinophils Percent Auto 0.5 % (0.0-7.0); Hematocrit 44.2 % (37.0-53.0); Immature Granulocytes Pct Auto 0.2 %; Lactate Sepsis w/Reflex* 5.4 mmol/L (0.5-1.9); Lymphocytes Percent Auto 7.6 % (20-44); Mean Corpuscular HGB Conc 32 gm/dL (32-36); Mean Corpuscular Hemoglobin 30 pg (26-34); Mean Corpuscular Volume 93 fL (80-100); Monocytes Percent Auto 4.7 % (0.0-11.0); Neutrophils Percent Auto 86.8 % (42.0-72.0); Platelet Count* 270 K/uL (140-440); RDW Coefficient of Variation % 13.5 % (11.5-15.5); Red Blood Count 4.74 m/uL (4.30-5.90); White Blood Count* 15.07 K/uL (4.50-11.00)
[2024-04-24 14:03] LABS: Slide Review Reflex No
[2024-04-24 14:14] LABS: Albumin* 4.6 g/dL (3.3-5.0); Chloride* 104 mmol/L (96-114); Potassium* 3.5 mmol/L (3.6-5.1); Sodium* 142 mmol/L (135-149)
[2024-04-24 14:16] LABS: Creatinine* 1.2 mg/dL (0.5-1.5); Est. Creatinine Clearance* 51.42; Estimated Glomerular Filt Rate 61 ml/min
[2024-04-24 14:17] LABS: Alanine Aminotransferase* 24 U/L (4-50); Alkaline Phosphatase* 123 U/L (40-150); Anion Gap 12 mEq/L (7-15); Aspartate Amino Transferase* 25 U/L (12-35); Bilirubin Total* 0.8 mg/dL (0.1-1.5); Blood Urea Nitrogen* 15 mg/dL (7-30); Calcium* 9.9 mg/dL (8.4-10.6); Carbon Dioxide* 26 mmol/L (20-32); Glucose* 173 mg/dL (60-115); Lipase* 53 U/L (23-300); Total Protein* 7.6 g/dL (6.0-8.3)
[2024-04-24 14:20] LABS: C Reactive Protein* 1.7 mg/dL (0.5-1.0)
[2024-04-24 14:22] LABS: Ethanol* < 0.01 % (0.01-0.03)
[2024-04-24 14:44] LABS: PCR FLU A Negative PCR FLU A (Negative); PCR FLU B Negative PCR FLU B (Negative); PCR RSV Negative PCR RSV (Negative); SARS PCR* Negative SARS-CoV-2 (Negative)
--- NOTE | 2024-04-24 15:12 | CRLHL7_ITS ---
For Patients: As a result of the Century Cures Act, medical imaging exams and procedure reports are released immediately into your electronic medical record. You may view this report before your referring provider. If you have questions, please contact your health care provider. Indication: C diff colitis. Technique: Abdomen 2 view. Comparison: None. Findings: Bowel: Mild gaseous distention small-bowel loops with a few air-fluid levels. No bowel dilation identified. The amount of colonic stool is within normal limits. Other: No sign of free air. No sign of soft tissue mass. No suspicious calcifications. Osseous structures are unremarkable for age. Impression: Air-fluid levels with mild gaseous distention of the small bowel may be seen in the setting of diarrheal illness. Otherwise, bowel-gas pattern is unremarkable. Dictated by Venkata Lang MD @ 04/24/2024 4:20:13 PM (Electronically Signed)
[2024-04-24 16:00] LABS: Lactate Sepsis 2 Hour 1.9 mmol/L (0.5-1.9)
--- NOTE | 2024-04-24 17:21 | PM.IMHP1 ---
Hospitalist- H&P: HPI History of Present Illness Date Seen: 04/24/24 Chief complaint: diarrhea vomiting Narrative: Gustavo Hollis is a 83 year old male with history of hypertension, hyperlipidemia, CAD status post stent (> 10 yrs ago) on the DAPT, COPD, alcohol abuse who presents to the ED due to diarrhea, abdominal pain, vomiting that started this morning. The patient used to have diarrhea for a couple of months that was improving but then it got worse this a.m. In addition, patient has been feeling more weak and that is why he presented to the ED. His bowel movements were frequent and liquid in consistency, dark brown, w/out blood in bowel movements or in his vomitus. He describes his vomitus as yellowish in color, and that he vomited 3 times this morning. He denies fevers, chills, chest pain, burning sensation on urination or increased urinary frequency, he mentions that he has shortness of breath at his baseline due to COPD but he is not using inhalers. Patient was admitted here a month ago for UTI with urine culture growing E coli. Prior to that he had admission in [place], [place] for colitis and was treated with Cipro and Flagyl. During his last admission at [facility], C diff was tested and it was positive, for that he got p.o. vanc for 10 days. I talked to his daughter hold things that he was not compliant in taking his antibiotics. At the ED, First SBP was 85 mmHg, improved to low 100s s/p IVF (1.5 L). WBCs 15.07, LA 5.4, CRP 1.7, SCr 1.2 (was 0.7 a month ago). Patient had a repeat C diff test today at the clinic due to worsening diarrhea and it was still positive. UA -ve. Review of Systems Status of ROS: Reports: 10 or more systems reviewed and unremarkable except as noted in History and below [facility] Medical History (Updated 04/24/24 @ 18:56 by Ivett Dexter MD) Noncompliance with medication regimen ?Z91.148 - Patient's other noncompliance with medication regimen for other reason (ICD-10) Sepsis ?A41.9 - Sepsis, unspecified organism (ICD-10) Alcohol abuse ?F10.10 - Alcohol abuse, uncomplicated (ICD-10) Lactic acidosis ?E87.20 - Acidosis, unspecified (ICD-10) Elevated blood sugar ?R73.9 - Hyperglycemia, unspecified (ICD-10) Chronic cystitis ?N30.20 - Other chronic cystitis without hematuria (ICD-10) History of RI (myocardial infarction) ?I25.2 - Old myocardial infarction (ICD-10) Back pain ?M54.9 - Dorsalgia, unspecified (ICD-10) Actinic keratosis of right cheek ?L57.0 - Actinic keratosis (ICD-10) History of myocardial infarct at age greater than 60 years ?I25.2 - Old myocardial infarction (ICD-10) Surgical History History of colonoscopy with polypectomy ?Z98.890 - Other specified postprocedural states (ICD-10) ?Z86.010 - Personal history of colonic polyps (ICD-10) History of cataract extraction ?Z98.49 - Cataract extraction status, unspecified eye (ICD-10) Family History Father Cancer Social History Narrative: He lives with his son and grandson. He smokes cigars, 5-6 per day. He drinks about 4 beers a day plus a whiskey at bedtime. Code status is full What is your current living situation?: I presently have a place to live Problems where you live: no known problems Problems where you live details: none In the past 12 months, utilities in danger of being shut off: no In past 12 months, lack of transportation kept you from medical appts, meetings, work, or getting things needed for daily living: no In the past 12 mos, have been you worried that your food would run out before you had money to buy more?: never true In the past 12 mos, the food you bought just didn't last and you didn't have money to buy more?: never true Highest level of school completed/degree received: high school graduate Smoking Status: Current every day smoker What tobacco products do you use: cigars Do you use any of these nicotine containing products: None Second hand tobacco smoke exposure: No How often do you have a drink containing alcohol: never How many standard drinks containing alcohol do you have on a typical day: 3 or 4 How often do you have six or more drinks on one occasion: Never AUDIT-C Alcohol total score: 1 Non-prescribed substance use: denies use Caffeine: Yes How often does anyone, including family, friends and others, physically hurt you: never How often does anyone, including family, friends and others, insult or talk down to you: never How often does anyone, including family, friends and others, threaten you with harm: never How often does anyone, including family, friends and others, scream or curse at you: never service: No Meds Home Medications and Allergies Home Medications ?Medication ?Instructions ?Recorded ?Confirmed ?Type aspirin 81 mg tablet,delayed 81 mg PO DAILY 03/19/22 04/24/24 History release atorvastatin 80 mg tablet 80 mg PO DAILY 03/22/24 04/24/24 History clopidogrel 75 mg tablet 75 mg PO DAILY 03/22/24 04/24/24 History montelukast 10 mg tablet 10 mg PO QPM 03/22/24 04/24/24 History tamsulosin 0.4 mg capsule 0.4 mg PO DAILY 03/22/24 04/24/24 History metoprolol succinate 25 mg 25 mg PO DAILY 03/29/24 04/24/24 History tablet,extended release 24 hr Allergies Allergy/AdvReac Type Severity Reaction Status Date / Time No Known Drug Allergies Allergy Verified 04/24/24 08:09 Exam Narrative: Exam Narrative: Physical exam GENERAL: Comfortable, no acute distress. HEAD AND NECK: Atraumatic, normocephalic CARDIOVASCULAR: RRR. Normal S1, S2. There is a 2/6 murmur left 2nd intercostal space. RESPIRATORY: Clear to auscultation B/L. Good air entry B/L. No wheezes or rhonchi. GASTROINTESTINAL: Not distended, not tender to palpation. NEUROLOGY: Alert, awake, oriented X 3. Normal speech. No focal weakness. PSYCH: Normal mood, normal affect. Const: Vital Signs, click to edit/add: Vital Signs - 24 hr 04/24/24 13:37 04/24/24 13:39 04/24/24 13:45 Temperature 96.4 F L Pulse Rate 86 107 H Pulse Rate [Pulse Oximeter] 85 Respiratory Rate 26 H Blood Pressure Blood Pressure [Ri ght Upper Arm] 131/75 Pulse Oximetry 94 94 95 Oxygen Delivery Me thod Room Air 04/24/24 14:00 04/24/24 14:15 04/24/24 14:30 Temperature Pulse Rate 57 L 64 76 Pulse Rate [Pulse Oximeter] Respiratory Rate Blood Pressure Blood Pressure [Ri ght Upper Arm] Pulse Oximetry 94 93 89 [facility] 04/[facility]/24 14:45 04/24/24 14:47 04/24/24 14:50 Temperature Pulse Rate 65 67 Pulse Rate [Pulse Oximeter] Respiratory Rate Blood Pressure 85/43 L Blood Pressure [Ri ght Upper Arm] 85/43 L Pulse Oximetry 90 93 [facility] 04/24/24 15:00 04/24/24 15:00 04/24/24 15:02 Temperature Pulse Rate 72 66 Pulse Rate [Pulse Oximeter] Respiratory Rate Blood Pressure 105/52 L Blood Pressure [Ri ght Upper Arm] 105/52 L Pulse Oximetry 94 94 [facility] 04/24/24 15:03 04/24/24 15:15 04/24/24 15:17 Temperature Pulse Rate 67 74 77 Pulse Rate [Pulse Oximeter] Respiratory Rate Blood Pressure 109/55 L Blood Pressure [Ri ght Upper Arm] Pulse Oximetry 95 96 96 [facility] 04/24/24 15:30 04/24/24 15:32 04/24/24 15:50 Temperature Pulse Rate 64 67 Pulse Rate [Pulse Oximeter] 63 Respiratory Rate 18 Blood Pressure 98/51 L Blood Pressure [Ri ght Upper Arm] 105/66 Pulse Oximetry 95 93 96 Oxygen [facility] Hospitalist - H&P: Result Labs Labs: Short CBC 04/24/24 Range/Units 13:50 WBC 15.07 H (4.50-11.00) K/uL Hgb 14.0 (13.5-17.5) gm/dL Hct 44.2 (37.0-53.0) % Plt Count 270 (140-440) K/uL BMP 04/24/24 13:50 Sodium 142 Potassium 3.5 L Chloride 104 Carbon Dioxide 26 BUN 15 Creatinine 1.2 Glucose 173 H Calcium 9.9 Liver Function 04/24/24 Range/Units 13:50 Total Bilirubin 0.8 (0.1-1.5) mg/dL Direct Bilirubin 0.0 (0.0-0.5) mg/dL AST 25 (12-35) U/L ALT 24 (4-50) U/L Alkaline Phosphatase 123 (40-150) U/L Albumin 4.6 (3.3-5.0) g/dL ECG Attestation: I personally reviewed and interpreted this ECG as follows: ECG interpretation date: 04/24/24 Interpretation: Sinus rhythm with frequent PVCs. QTC 440. Imaging Abdominal x-ray: Radiologist's impression: Abdomen 2 view. I reviewed his abdominal x-ray myself, no distension of the small bowel or the colon. Unremarkable. Comparison: None. Findings: Bowel: Mild gaseous distention small-bowel loops with a few air-fluid levels. No bowel dilation identified. The amount of colonic stool is within normal limits. Other: No sign of free air. No sign of soft tissue mass. No suspicious calcifications. Osseous structures are unremarkable for age. Impression: Air-fluid levels with mild gaseous distention of the small bowel may be seen in the setting of diarrheal illness. Otherwise, bowel-gas pattern is unremarkable. Dictated by Venkata Lang MD @ 04/24/2024 4:20:13 PM Assessment and Plan Assessment and plan (1) C. difficile colitis: Problem comment: - patient had a recent colitis/diarrhea disease with C diff test positive, was discharged on p.o. vanc but according to his daughter he was not compliant with antibiotics. - previous CT scan showed colitis - Abdominal x-ray today showed no distension of the small bowel or the colon. Unremarkable. - S/P IV fluids bolus, started normal saline IV fluid at 125 mL/hour rate. - Started vancomycin p.o. 125 mg q.6 hours. Length of treatment should be 10-14 days. Status: Acute (2) Severe sepsis: Problem comment: - Patient meets criteria for severe sepsis - lactic acid 5.4 - patient was given IV fluids and his blood pressure improved and lactic acidosis resolved. Status: Acute (3) IVONNE (acute kidney injury): Problem comment: - Baseline 0.7, last SCr a month ago - Holding Lisinopril d/t suspected IVONNE. - S/P IVF bolus - On IVF NS 125 cc/hr Status: Acute (4) Noncompliance with medication regimen: Status: Acute (5) Acidosis, lactic: Problem comment: - lactic acid 5.4 at presentation - patient was given IV fluids and his lactic acidosis resolved. Status: Acute (6) Alcohol abuse: Problem comment: - Reports 4 beers during the day and whiskey at bedtime. - Denies previous alcohol withdrawal symptoms or seizure. - [facility] protocol ordered - thiamine, folic acid, multivitamin tabs ordered - IV fluids given Status: Acute (7) Coronary artery disease: Problem comment: - PCI > 10 yrs ago, on DAPT - On his previous admission, pt was found to be bradycardic and his BB was discontinued due to bradycardia. Patient can not remember if he is taking metoprolol. Status: Acute (8) Heart murmur: Problem comment: - ECHO: aortic valve mild stenosis, EF 61%, normal LV wall thickness size Status: Acute (9) Hyperlipidemia: Problem comment: On atorva, resumed Status: Acute (10) Hypertension: Problem comment: -Holding Lisinopril d/t suspected IVONNE. Status: Acute Plan As above Total Time Spent Total Time Spent: Time spent: Today I spent 75 minutes seeing the patient, discussing the patient with ER staff, reviewing Expanse and EPIC notes/diagnostics, discussing the care plan with our care time that includes, pharmacy, RT, and documenting my impressions and plan in the medical record.
[2024-04-24] MEDS: POTASSIUM CHLORIDE 10 MEQ CAPSULE ER 20 MEQ PO (19:26)
[2024-04-24] MEDS: THIAMINE 100 MG TABLET PO (19:26)
[2024-04-24] MEDS: 0.9 % SODIUM CHLORIDE 1000 ml 1,000 ML 125 ML IV (19:27)
[2024-04-24] MEDS: ACETAMINOPHEN 325 MG TABLET 650 MG PO (20:03)
[2024-04-24 20:05] LABS: Appearance Urine Slightly Cloudy (Clear); Bilirubin Urine 2+ (Negative); Blood Urine Negative (Negative); Color Urine Red (Yellow); Glucose Urine Trace (Negative); Ketones Urine 1+ (Negative)
[2024-04-24 20:06] LABS: Leukocyte Esterase Urine 3+ (Negative); Nitrite Urine Positive (Negative); Protein Urine 3+ (Negative); WBC Clumps Urine Few
[2024-04-24 20:07] LABS: Bacteria Urine Few; Squamous Epithelial Cell Urine Few (None-Few)
[2024-04-24 20:08] LABS: Coarse Granular Casts Urine Moderate; Hyaline Casts Urine Few (None-Few)
[2024-04-24] MEDS: 0.9 % SODIUM CHLORIDE 500 ML 500 ML IV ×2 (21:48→23:34)
[2024-04-24] MEDS: VANCOMYCIN 125 MG CAPSULE PO (22:47)
[2024-04-24] MEDS: ENOXAPARIN 40 MG/0.4 ML INJ SUBCUT (22:47)
[2024-04-24] MEDS: ATORVASTATIN CALCIUM 40 MG TABLET 80 MG PO (22:47)
[2024-04-25] VITALS (14 sets, daily range): BP systolic 78–112; BP diastolic 41–64; PULSE 49–61; RESP 16–18; TEMP 36.3–36.6; O2SAT 94–96
[2024-04-25] MEDS: MIDODRINE HCL 5 MG TABLET PO (01:10)
[2024-04-25] MEDS: SODIUM CHLORIDE 0.9 % (FLUSH) 10 ML SYRINGE 5 ML IVF ×2 (01:11→09:05)
--- NOTE | 2024-04-25 03:19 | PC.NURSE ---
Maintenance Manager placed call to [facility] utility worker production MD Dr. Naqvi to provide him update of pt's B/P of 95/54 and pulse of 50 with 0300 VS. Pt currently ordered full liquid diet with staff encouraging po fluids. Pt is not having hypotensive symptoms or complaints at this time. MD Naqvi advises no further IV fluids to be given at this time. If pt becomes symptomatic or blood pressure decreases, staff are to update .
--- NOTE | 2024-04-25 06:26 | PC.NURSE ---
End of shift note [id number]. Pt noted to be alert & oriented x 4. He is able to reposition independently in bed and transferred/ambulated with SBA though pt refused to use FWW and gait belt despite education and encouragement. IV to L AC patent with fluids administered per orders. Pt noted to be hypotensive and bradycardic this shift. Edger Liner updated MD Dexter who gave po order for Midodrine. Pt has been afebrile and denies urinary sx when asked. No vomiting noted this shift. Pt has been denying pain and nausea when asked. Telemetry in place with sinus bradycardia noted. CIWAs 0 throughout the shift. Pt slept well throughout the night. Poor po fluid intake noted though RN has been encouraging po fluids throughout the shift. Pt continent of bladder and stool with pt having one loose stool this shift. Urine noted to be orange/red in color since admit due to report of taking Azo at home.
[2024-04-25 06:33] LABS: Basophils Absolute Auto 0.01 K/uL (0.00-0.30); Basophils Percent Auto 0.2 % (0.0-3.0); Eosinophils Absolute Auto 0.08 K/uL (0.00-0.50); Eosinophils Percent Auto 1.6 % (0.0-7.0); Hematocrit 32.8 % (37.0-53.0); Hemoglobin* 10.6 gm/dL (13.5-17.5); Lymphocytes Percent Auto 16.6 % (20-44); Mean Corpuscular HGB Conc 32 gm/dL (32-36); Mean Corpuscular Hemoglobin 30 pg (26-34); Mean Corpuscular Volume 92 fL (80-100); Monocytes Percent Auto 10.7 % (0.0-11.0); Neutrophils Percent Auto 70.9 % (42.0-72.0); Platelet Count* 187 K/uL (140-440); RDW Coefficient of Variation % 13.7 % (11.5-15.5); Red Blood Count 3.57 m/uL (4.30-5.90); White Blood Count* 5.07 K/uL (4.50-11.00)
[2024-04-25 06:43] LABS: Chloride* 111 mmol/L (96-114); Slide Review Reflex No
[2024-04-25 06:44] LABS: Potassium* 3.6 mmol/L (3.6-5.1); Sodium* 140 mmol/L (135-149)
[2024-04-25 06:46] LABS: Alkaline Phosphatase* 87 U/L (40-150); Anion Gap 3 mEq/L (7-15); Aspartate Amino Transferase* 20 U/L (12-35); Bilirubin Total* 0.7 mg/dL (0.1-1.5); Blood Urea Nitrogen* 21 mg/dL (7-30); Carbon Dioxide* 26 mmol/L (20-32); Creatinine* 1.1 mg/dL (0.5-1.5); Est. Creatinine Clearance* 53.46; Estimated Glomerular Filt Rate 67 ml/min; Glucose* 101 mg/dL (60-115); Total Protein* 5.4 g/dL (6.0-8.3)
[2024-04-25 06:47] LABS: Alanine Aminotransferase* 16 U/L (4-50); Calcium* 8.5 mg/dL (8.4-10.6); Magnesium* 1.6 mg/dL (1.5-2.6); Phosphorus* 3.3 mg/dL (2.5-4.5)
--- NOTE | 2024-04-25 07:27 | PM.IMPN1 ---
Progress Note: A&P Assessment and plan (1) C. difficile colitis: Problem details: - patient had a recent colitis/diarrhea disease with C diff test positive, was discharged on p.o. vanc but according to his daughter he was not compliant with antibiotics. - previous CT scan showed colitis - Abdominal x-ray today showed no distension of the small bowel or the colon. Unremarkable. - S/P IV fluids bolus, started normal saline IV fluid at 125 mL/hour rate. - Started vancomycin p.o. 125 mg q.6 hours. Length of treatment should be extended wean; discussed with pharmacy -Vanc plan: 125mg QID 14 days, 125mg TID x 7 days, 125mg BID x 7 days, 125mg daily x 7 days, 125mg q48hr x 7 days, 125mg q3days x 7 days Status: Acute (2) Severe sepsis: Problem details: - Patient meets criteria for severe sepsis - resolved by 04/25 - lactic acid 5.4 --> 1.9 (resolved with IVF) - patient was given IV fluids and his blood pressure improved and lactic acidosis resolved. Status: Acute (3) IVONNE (acute kidney injury): Problem details: - Baseline 0.7, last SCr a month ago - Holding Lisinopril d/t suspected IVONNE. - S/P IVF bolus - On IVF NS 125 cc/hr Status: Acute (4) Anemia, chronic disease: Problem details: baseline hgb about 10. no obvious bleeding Status: Acute (5) Acidosis, lactic: Problem details: - lactic acid 5.4 at presentation - patient was given IV fluids and his lactic acidosis resolved. Status: Acute (6) Alcohol abuse: Problem details: - Reports 4 beers during the day and whiskey at bedtime. - Denies previous alcohol withdrawal symptoms or seizure. - [facility] protocol ordered - thiamine, folic acid, multivitamin tabs ordered - IV fluids given Status: Acute (7) Coronary artery disease: Problem details: - PCI > 10 yrs ago, on DAPT - On his previous admission, pt was found to be bradycardic and his BB was discontinued due to bradycardia. Patient can not remember if he is taking metoprolol. Status: Acute (8) Hyperlipidemia: Problem details: On atorva, resumed Status: Acute (9) Hypertension: Problem details: -Holding Lisinopril d/t suspected IVONNE. Status: Acute Subjective Date Seen: 04/25/24 Interval history: Daily Progress Note - Hospital Medicine #: 2 CC: recurrent CDIFF with mild/mod dehydration, lactic acidosis 24 HOUR UPDATE: Notable Labs, Micro, Rads, Interventions: Blood pressure has improved slightly 95/54. Pulse 50. Respiratory rate 16. Has remained afebrile overnight and has remained on room air with sats in the mid 90s. White blood cell count has come down nicely 15.07 down to 5.07. Hemoglobin is down trending 10.6 this morning. Normal platelets. Electrolytes including potassium and renal function are improved. His elevated lactate is now normalized. It appears 2 urinalysis were checked yesterday 1 with being more indicative and of infection than the earlier one. C diff remains positive Abdominal x-ray on admission Air-fluid levels with mild gaseous distention of the small bowel may be seen in the setting of diarrheal illness. Otherwise, bowel-gas pattern is unremarkable. Objective: Vitals: see above Lungs: Clear. Cardiac: S1S2. Disposition/Potential discharge - Today I spent 50minutes seeing the patient, reviewing Expanse and EPIC notes/diagnostics, discussing the care plan with our care time that includes social work, PT/OT, pharmacy, RT, correction and documenting my impressions and plan in the medical record. Exam Const: Vital Signs, click to edit/add: Vital Signs - 24 hr 04/24/24 13:37 04/24/24 13:39 04/24/24 13:45 Temperature 96.4 F L Pulse Rate 86 107 H Pulse Rate [Pulse Oximeter] 85 Respiratory Rate 26 H Blood Pressure Blood Pressure [Le ft Arm] Blood Pressure [Ri ght Arm] Blood Pressure [Ri ght Upper Arm] 131/75 Pulse Oximetry 94 94 95 Oxygen Delivery Me thod Room Air 04/24/24 14:00 04/24/24 14:15 04/24/24 14:30 Temperature Pulse Rate 57 L 64 76 Pulse Rate [Pulse Oximeter] Respiratory Rate Blood Pressure Blood Pressure [Le ft Arm] Blood Pressure [Ri ght Arm] Blood Pressure [Ri ght Upper Arm] Pulse Oximetry 94 93 89 Oxygen Delivery Me thod 04/24/24 14:45 04/24/24 14:47 04/24/24 14:50 Temperature Pulse Rate 65 67 Pulse Rate [Pulse Oximeter] Respiratory Rate Blood Pressure 85/43 L Blood Pressure [Le ft Arm] Blood Pressure [Ri ght Arm] Blood Pressure [Ri ght Upper Arm] 85/43 L Pulse Oximetry 90 93 Oxygen Delivery Me thod 04/24/24 15:00 04/24/24 15:00 04/24/24 15:02 Temperature Pulse Rate 72 66 Pulse Rate [Pulse Oximeter] Respiratory Rate Blood Pressure 105/52 L Blood Pressure [Le ft Arm] Blood Pressure [Ri ght Arm] Blood Pressure [Ri ght Upper Arm] 105/52 L Pulse Oximetry 94 94 Oxygen Delivery Me thod 04/24/24 15:03 04/24/24 15:15 04/24/24 15:17 Temperature Pulse Rate 67 74 77 Pulse Rate [Pulse Oximeter] Respiratory Rate Blood Pressure 109/55 L Blood Pressure [Le ft Arm] Blood Pressure [Ri ght Arm] Blood Pressure [Ri ght Upper Arm] Pulse Oximetry 95 96 96 Oxygen Delivery Me thod 04/24/24 15:30 04/24/24 15:32 04/24/24 15:50 Temperature Pulse Rate 64 67 Pulse Rate [Pulse Oximeter] 63 Respiratory Rate 18 Blood Pressure 98/51 L Blood Pressure [Le ft Arm] Blood Pressure [Ri ght Arm] Blood Pressure [Ri ght Upper Arm] 105/66 Pulse Oximetry 95 93 96 Oxygen Delivery Me thod Room Air 04/24/24 16:12 04/24/24 16:12 04/24/24 18:17 Temperature 98.4 F 98.4 F Pulse Rate Pulse Rate [Pulse Oximeter] 88 59 L Respiratory Rate 16 16 16 Blood Pressure Blood Pressure [Le ft Arm] 120/69 73/45 L Blood Pressure [Ri ght Arm] Blood Pressure [Ri ght Upper Arm] Pulse Oximetry 98 98 94 Oxygen Delivery Me thod Room Air Room Air 04/24/24 19:00 04/24/24 23:00 04/24/24 23:00 Temperature 98.4 F Pulse Rate 50 L Pulse Rate [Pulse Oximeter] 59 L 50 L Respiratory Rate 16 16 Blood Pressure Blood Pressure [Le ft Arm] 73/45 L Blood Pressure [Ri ght Arm] Blood Pressure [Ri ght Upper Arm] Pulse Oximetry 94 Oxygen Delivery Me thod Room Air 04/24/24 23:29 04/24/24 23:38 04/25/24 00:04 Temperature 97.6 F 97.6 F Pulse Rate Pulse Rate [Pulse Oximeter] 51 L 51 L Respiratory Rate 16 16 Blood Pressure Blood Pressure [Le ft Arm] 79/48 L 93/52 L Blood Pressure [Ri ght Arm] 79/48 L 78/41 L Blood Pressure [Ri ght Upper Arm] Pulse Oximetry 96 96 Oxygen Delivery Me thod Room Air Room Air 04/25/24 03:06 04/25/24 03:07 Temperature 97.6 F 97.6 F Pulse Rate Pulse Rate [Pulse Oximeter] 50 L 50 L Respiratory Rate 16 16 Blood Pressure Blood Pressure [Le ft Arm] 95/54 L 95/54 L Blood Pressure [Ri ght Arm] Blood Pressure [Ri ght Upper Arm] Pulse Oximetry 95 95 Oxygen Delivery Me thod Room Air Room Air Labs Labs: Laboratory Results - last 24 hr 04/24/24 04/24/24 04/24/24 13:50 13:52 15:56 WBC 15.07 H RBC 4.74 Hgb 14.0 Hct 44.2 MCV 93 MCH 30 MCHC 32 RDW Coeff of Marv 13.5 Plt Count 270 Neut % (Auto) 86.8 H Lymph % (Auto) 7.6 L [place] % (Auto) 4.7 Eos % (Auto) 0.5 Baso % (Auto) 0.2 Neut # (Auto) 13.10 H Lymph # (Auto) 1.10 [place] # (Auto) 0.70 Eos # (Auto) 0.10 Baso # (Auto) 0.00 Abs Immat Gran (auto) 0.00 Imm/Tot Granulo (auto) 0.2 Sodium 142 Potassium 3.5 L Chloride 104 Carbon Dioxide 26 Anion Gap 12 BUN 15 Creatinine 1.2 Estimated Creat Clear 51.42 Estimated GFR 61 Glucose 173 H Lactate 5.4 H* 1.9 Calcium 9.9 Phosphorus Magnesium Total Bilirubin 0.8 Direct Bilirubin 0.0 AST 25 ALT 24 Alkaline Phosphatase 123 C-Reactive Protein 1.7 H Total Protein 7.6 Albumin 4.6 Lipase 53 Urine Color Urine Appearance Urine pH Ur Specific [place] Urine Protein Urine Glucose (UA) Urine Ketones Urine Blood Urine Nitrite Urine Bilirubin Urine Urobilinogen Ur Leukocyte Esterase Urine RBC Urine WBC Urine WBC Clumps Ur Squamous Epith Cells [place] Biurate Crystals Calcium Carbonate Cryst Calcium Phosphate Cryst Calcium Oxalate Crystal Cystine Crystals Uric Acid Crystals Triple Phos Crystals Sulfur Crystals Cholesterol Crystals Tyrosine Crystals Hippuric Acid Crystals Amorphous Sediment Other Sediment Urine Bacteria Fatty Casts Hyaline Casts Fine Granular Casts Coarse Granular Casts Waxy Casts RBC Casts WBC Casts Other Casts Urine Starch Urine Mucus Urine Trichomonas Urine Yeast Ethyl Alcohol < 0.01 L SARS-CoV-2 (PCR) Negative SARS-CoV-2 Influenza Type A (PCR) Negative PCR FLU A Influenza Type B (PCR) Negative PCR FLU B RSV (PCR) Negative PCR RSV 04/24/24 04/24/24 04/24/24 18:32 18:32 18:32 WBC RBC Hgb Hct MCV MCH MCHC RDW Coeff of Marv Plt Count Neut % (Auto) Lymph % (Auto) [place] % (Auto) Eos % (Auto) Baso % (Auto) Neut # (Auto) Lymph # (Auto) [place] # (Auto) Eos # (Auto) Baso # (Auto) Abs Immat Gran (auto) Imm/Tot Granulo (auto) Sodium Potassium Chloride Carbon Dioxide Anion Gap BUN Creatinine Estimated Creat Clear Estimated GFR Glucose Lactate Calcium Phosphorus Magnesium Total Bilirubin Direct Bilirubin AST ALT Alkaline Phosphatase C-Reactive Protein Total Protein Albumin Lipase Urine Color Cancelled Red A Urine Appearance Cancelled Slightly Cloudy A Urine pH Cancelled Ur Specific [place] Urine Protein Urine Glucose (UA) Urine Ketones Urine Blood Urine Nitrite Urine Bilirubin Urine Urobilinogen Ur Leukocyte Esterase Urine RBC Urine WBC Urine WBC Clumps Ur Squamous Epith Cells Ta Biurate Crystals Calcium Carbonate Cryst Calcium Phosphate Cryst Calcium Oxalate Crystal Cystine Crystals Uric Acid Crystals Triple Phos Crystals Sulfur Crystals Cholesterol Crystals Tyrosine Crystals Hippuric Acid Crystals Amorphous Sediment Other Sediment Urine Bacteria Fatty Casts Hyaline Casts Fine Granular Casts Coarse Granular Casts Waxy Casts RBC Casts WBC Casts Other Casts Urine Starch Urine Mucus Urine Trichomonas Urine Yeast Ethyl Alcohol SARS-CoV-2 (PCR) Influenza Type A (PCR) Influenza Type B (PCR) RSV (PCR) 04/24/24 04/24/24 04/24/24 18:32 18:32 18:32 WBC RBC Hgb Hct MCV MCH MCHC RDW Coeff of Marv Plt Count Neut % (Auto) Lymph % (Auto) [place] % (Auto) Eos % (Auto) Baso % (Auto) Neut # (Auto) Lymph # (Auto) [place] # (Auto) Eos # (Auto) Baso # (Auto) Abs Immat Gran (auto) Imm/Tot Granulo (auto) Sodium Potassium Chloride Carbon Dioxide Anion Gap BUN Creatinine Estimated Creat Clear Estimated GFR Glucose Lactate Calcium Phosphorus Magnesium Total Bilirubin Direct Bilirubin AST ALT Alkaline Phosphatase C-Reactive Protein Total Protein Albumin Lipase Urine Color Urine Appearance Urine pH 5.0 Ur Specific [place] Cancelled 1.010 Urine Protein Cancelled 3+ A Urine Glucose (UA) Cancelled Urine Ketones Urine Blood Urine Nitrite Urine Bilirubin Urine Urobilinogen Ur Leukocyte Esterase Urine RBC Urine WBC Urine WBC Clumps Ur Squamous Epith Cells [place] Biurate Crystals Calcium Carbonate Cryst Calcium Phosphate Cryst Calcium Oxalate Crystal Cystine Crystals Uric Acid Crystals Triple Phos Crystals Sulfur Crystals Cholesterol Crystals Tyrosine Crystals Hippuric Acid Crystals Amorphous Sediment Other Sediment Urine Bacteria Fatty Casts Hyaline Casts Fine Granular Casts Coarse Granular Casts Waxy Casts RBC Casts WBC Casts Other Casts Urine Starch Urine Mucus Urine Trichomonas Urine Yeast Ethyl Alcohol SARS-CoV-2 (PCR) Influenza Type A (PCR) Influenza Type B (PCR) RSV (PCR) 04/24/24 04/24/24 04/24/24 18:32 18:32 18:32 WBC RBC Hgb Hct MCV MCH MCHC RDW Coeff of Marv Plt Count Neut % (Auto) Lymph % (Auto) [place] % (Auto) Eos % (Auto) Baso % (Auto) Neut # (Auto) Lymph # (Auto) [place] # (Auto) Eos # (Auto) Baso # (Auto) Abs Immat Gran (auto) Imm/Tot Granulo (auto) Sodium Potassium Chloride Carbon Dioxide Anion Gap BUN Creatinine Estimated Creat Clear Estimated GFR Glucose Lactate Calcium Phosphorus Magnesium Total Bilirubin Direct Bilirubin AST ALT Alkaline Phosphatase C-Reactive Protein Total Protein Albumin Lipase Urine Color Urine Appearance Urine pH Ur Specific [place] Urine Protein Urine Glucose (UA) Trace A Urine Ketones Cancelled 1+ A Urine Blood Cancelled Negative Urine Nitrite Cancelled Urine Bilirubin Urine Urobilinogen Ur Leukocyte Esterase Urine RBC Urine WBC Urine WBC Clumps Ur Squamous Epith Cells [place] Biurate Crystals Calcium Carbonate Cryst Calcium Phosphate Cryst Calcium Oxalate Crystal Cystine Crystals Uric Acid Crystals Triple Phos Crystals Sulfur Crystals Cholesterol Crystals Tyrosine Crystals Hippuric Acid Crystals Amorphous Sediment Other Sediment Urine Bacteria Fatty Casts Hyaline Casts Fine Granular Casts Coarse Granular Casts Waxy Casts RBC Casts WBC Casts Other Casts Urine Starch Urine Mucus Urine Trichomonas Urine Yeast Ethyl Alcohol SARS-CoV-2 (PCR) Influenza Type A (PCR) Influenza Type B (PCR) RSV (PCR) 04/24/24 04/24/24 04/24/24 18:32 18:32 18:32 WBC RBC Hgb Hct MCV MCH MCHC RDW Coeff of Marv Plt Count Neut % (Auto) Lymph % (Auto) [place] % (Auto) Eos % (Auto) Baso % (Auto) Neut # (Auto) Lymph # (Auto) [place] # (Auto) Eos # (Auto) Baso # (Auto) Abs Immat Gran (auto) Imm/Tot Granulo (auto) Sodium Potassium Chloride Carbon Dioxide Anion Gap BUN Creatinine Estimated Creat Clear Estimated GFR Glucose Lactate Calcium Phosphorus Magnesium Total Bilirubin Direct Bilirubin AST ALT Alkaline Phosphatase C-Reactive Protein Total Protein Albumin Lipase Urine Color Urine Appearance Urine pH Ur Specific [place] Urine Protein Urine Glucose (UA) Urine Ketones Urine Blood Urine Nitrite Positive A Urine Bilirubin Cancelled 2+ A Urine Urobilinogen Cancelled 4.0 A Ur Leukocyte Esterase Cancelled Urine RBC Urine WBC Urine WBC Clumps Ur Squamous Epith Cells [place] Biurate Crystals Calcium Carbonate Cryst Calcium Phosphate Cryst Calcium Oxalate Crystal Cystine Crystals Uric Acid Crystals Triple Phos Crystals Sulfur Crystals Cholesterol Crystals Tyrosine Crystals Hippuric Acid Crystals Amorphous Sediment Other Sediment Urine Bacteria Fatty Casts Hyaline Casts Fine Granular Casts Coarse Granular Casts Waxy Casts RBC Casts WBC Casts Other Casts Urine Starch Urine Mucus Urine Trichomonas Urine Yeast Ethyl Alcohol SARS-CoV-2 (PCR) Influenza Type A (PCR) Influenza Type B (PCR) RSV (PCR) 04/24/24 04/24/24 04/24/24 18:32 18:32 18:32 WBC RBC Hgb Hct MCV MCH MCHC RDW Coeff of Marv Plt Count Neut % (Auto) Lymph % (Auto) [place] % (Auto) Eos % (Auto) Baso % (Auto) Neut # (Auto) Lymph # (Auto) [place] # (Auto) Eos # (Auto) Baso # (Auto) Abs Immat Gran (auto) Imm/Tot Granulo (auto) Sodium Potassium Chloride Carbon Dioxide Anion Gap BUN Creatinine Estimated Creat Clear Estimated GFR Glucose Lactate Calcium Phosphorus Magnesium Total Bilirubin Direct Bilirubin AST ALT Alkaline Phosphatase C-Reactive Protein Total Protein Albumin Lipase Urine Color Urine Appearance Urine pH Ur Specific [place] Urine Protein Urine Glucose (UA) Urine Ketones Urine Blood Urine Nitrite Urine Bilirubin Urine Urobilinogen Ur Leukocyte Esterase 3+ A Urine RBC Cancelled 2-5 A Urine WBC Cancelled 5-10 A Urine WBC Clumps Cancelled Ur Squamous Epith Cells Ta Biurate Crystals Calcium Carbonate Cryst Calcium Phosphate Cryst Calcium Oxalate Crystal Cystine Crystals Uric Acid Crystals Triple Phos Crystals Sulfur Crystals Cholesterol Crystals Tyrosine Crystals Hippuric Acid Crystals Amorphous Sediment Other Sediment Urine Bacteria Fatty Casts Hyaline Casts Fine Granular Casts Coarse Granular Casts Waxy Casts RBC Casts WBC Casts Other Casts Urine Starch Urine Mucus Urine Trichomonas Urine Yeast Ethyl Alcohol SARS-CoV-2 (PCR) Influenza Type A (PCR) Influenza Type B (PCR) RSV (PCR) 04/24/24 04/24/24 04/24/24 18:32 18:32 18:32 WBC RBC Hgb Hct MCV MCH MCHC RDW Coeff of Marv Plt Count Neut % (Auto) Lymph % (Auto) [place] % (Auto) Eos % (Auto) Baso % (Auto) Neut # (Auto) Lymph # (Auto) [place] # (Auto) Eos # (Auto) Baso # (Auto) Abs Immat Gran (auto) Imm/Tot Granulo (auto) Sodium Potassium Chloride Carbon Dioxide Anion Gap BUN Creatinine Estimated Creat Clear Estimated GFR Glucose Lactate Calcium Phosphorus Magnesium Total Bilirubin Direct Bilirubin AST ALT Alkaline Phosphatase C-Reactive Protein Total Protein Albumin Lipase Urine Color Urine Appearance Urine pH Ur Specific [place] Urine Protein Urine Glucose (UA) Urine Ketones Urine Blood Urine Nitrite Urine Bilirubin Urine Urobilinogen Ur Leukocyte Esterase Urine RBC Urine WBC Urine WBC Clumps Few A Ur Squamous Epith Cells Cancelled Few Ta Biurate Crystals Cancelled Calcium Carbonate Cryst Cancelled Calcium Phosphate Cryst Cancelled Calcium Oxalate Crystal Cancelled Cystine Crystals Cancelled Uric Acid Crystals Cancelled Triple Phos Crystals Cancelled Sulfur Crystals Cancelled Cholesterol Crystals Cancelled Tyrosine Crystals Cancelled Hippuric Acid Crystals Cancelled Amorphous Sediment Cancelled Other Sediment Cancelled Urine Bacteria Cancelled Few A Fatty Casts Cancelled Hyaline Casts Cancelled Fine Granular Casts Coarse Granular Casts Waxy Casts RBC Casts WBC Casts Other Casts Urine Starch Urine Mucus Urine Trichomonas Urine Yeast Ethyl Alcohol SARS-CoV-2 (PCR) Influenza Type A (PCR) Influenza Type B (PCR) RSV (PCR) 04/24/24 04/24/24 04/25/24 18:32 18:32 06:05 WBC 5.07 RBC 3.57 L Hgb 10.6 L Hct 32.8 L MCV 92 MCH 30 MCHC 32 RDW Coeff of Marv 13.7 Plt Count 187 Neut % (Auto) 70.9 Lymph % (Auto) 16.6 L [place] % (Auto) 10.7 Eos % (Auto) 1.6 Baso % (Auto) 0.2 Neut # (Auto) 3.60 Lymph # (Auto) 0.80 L [place] # (Auto) 0.50 Eos # (Auto) 0.08 Baso # (Auto) 0.01 Abs Immat Gran (auto) 0.00 Imm/Tot Granulo (auto) 0.0 Sodium 140 Potassium 3.6 Chloride 111 Carbon Dioxide 26 Anion Gap 3 L BUN 21 Creatinine 1.1 Estimated Creat Clear 53.46 Estimated GFR 67 Glucose 101 Lactate Calcium 8.5 Phosphorus 3.3 Magnesium 1.6 Total Bilirubin 0.7 Direct Bilirubin AST 20 ALT 16 Alkaline Phosphatase 87 C-Reactive Protein Total Protein 5.4 L Albumin 3.0 L Lipase Urine Color Urine Appearance Urine pH Ur Specific [place] Urine Protein Urine Glucose (UA) Urine Ketones Urine Blood Urine Nitrite Urine Bilirubin Urine Urobilinogen Ur Leukocyte Esterase Urine RBC Urine WBC Urine WBC Clumps Ur Squamous Epith Cells Ta Biurate Crystals Calcium Carbonate Cryst Calcium Phosphate Cryst Calcium Oxalate Crystal Cystine Crystals Uric Acid Crystals Triple Phos Crystals Sulfur Crystals Cholesterol Crystals Tyrosine Crystals Hippuric Acid Crystals Amorphous Sediment Other Sediment Urine Bacteria Fatty Casts Hyaline Casts Few Fine Granular Casts Cancelled Coarse Granular Casts Cancelled Moderate A Waxy Casts Cancelled RBC Casts Cancelled WBC Casts Cancelled Other Casts Cancelled Urine Starch Cancelled Urine Mucus Cancelled Urine Trichomonas Cancelled Urine Yeast Cancelled Ethyl Alcohol SARS-CoV-2 (PCR) Influenza Type A (PCR) Influenza Type B (PCR) RSV (PCR)
[2024-04-25 07:49] LABS: C Reactive Protein* 2.2 mg/dL (0.5-1.0)
[2024-04-25] MEDS: 0.9 % SODIUM CHLORIDE 1000 ml 1,000 ML 125 ML IV ×2 (09:03→18:07)
[2024-04-25] MEDS: CLOPIDOGREL 75 MG TABLET PO (09:04)
[2024-04-25] MEDS: FOLIC ACID 1 MG TABLET PO (09:04)
[2024-04-25] MEDS: 0.9 % SODIUM CHLORIDE 500 ML 500 ML IV (09:04)
[2024-04-25] MEDS: ASPIRIN 81 MG TABLET EC PO (09:05)
[2024-04-25] MEDS: MULTIVITAMIN/MINERALS 1 TABLET 1 TAB PO (09:05)
[2024-04-25] MEDS: TAMSULOSIN HCL 0.4 MG CAPSULE PO (09:05)
[2024-04-25] MEDS: VANCOMYCIN 125 MG CAPSULE 500 MG PO ×4 (09:05→21:02)
[2024-04-25] MEDS: ACETAMINOPHEN 325 MG TABLET 650 MG PO (12:42)
--- NOTE | 2024-04-25 17:58 | PC.NURSE ---
End of shift note : Pt alert & oriented x 3. Pt repos indep in bed. SBA. IV to L AC patent with NS running @ 125 mL/hr per orders. TELE: sinus nancy. Pt has been afebrile and denies N/V/CP/SOB. Pt reported a slight headache, PRN pain medication requested. See MAR. CIWAs 0 throughout the shift. Pt napped intermittently throughout the day. Pt tolerated diet/fluids well. Pt continent of bladder and stool with pt having one loose/diarrhea stool this shift. Urine noted to be orange/red in color since admit due to report of taking Azo at home. Pt appears resting with call light in reach.
[2024-04-25] MEDS: THIAMINE 100 MG TABLET PO (18:32)
[2024-04-25] MEDS: ENOXAPARIN 40 MG/0.4 ML INJ SUBCUT (21:01)
[2024-04-25] MEDS: ATORVASTATIN CALCIUM 40 MG TABLET 80 MG PO (21:01)
[2024-04-26] VITALS (8 sets, daily range): BP systolic 99–123; BP diastolic 51–69; PULSE 49–67; RESP 16–18; TEMP 36.7–37; O2SAT 94–96
[2024-04-26] MEDS: 0.9 % SODIUM CHLORIDE 1000 ml 1,000 ML 125 ML IV ×2 (00:50→08:31)
--- NOTE | 2024-04-26 06:40 | PC.NURSE ---
End of shift note : Pt alert & oriented x 4 and able to make needs known. He transfers/ambulates with SBA and refuses gait belt and FWW when encouraged. B/P values of 112/64, 100/54 and 99/51 throughout the shift though pt has no hypotensive symptoms when asked. CIWAs 0. Pt remains on afebrile and on RA. IV to L AC patent with NS running per order. Pt continent and incontinent of bladder. No N/V or diarrhea noted this shift. Pt has been denying pain throughout the shift.
[2024-04-26 06:48] LABS: Hematocrit 31.5 % (37.0-53.0); Hemoglobin* 10.2 gm/dL (13.5-17.5); Mean Corpuscular HGB Conc 32 gm/dL (32-36); Mean Corpuscular Hemoglobin 30 pg (26-34); Mean Corpuscular Volume 93 fL (80-100); Platelet Count* 161 K/uL (140-440); White Blood Count* 3.51 K/uL (4.50-11.00)
[2024-04-26 06:49] LABS: Slide Review Reflex No
[2024-04-26 07:01] LABS: Albumin* 2.8 g/dL (3.3-5.0); Chloride* 112 mmol/L (96-114); Iron* 49 ug/dL (49-181)
[2024-04-26 07:02] LABS: Potassium* 3.8 mmol/L (3.6-5.1); Sodium* 139 mmol/L (135-149)
[2024-04-26 07:04] LABS: Bilirubin Total* 0.6 mg/dL (0.1-1.5); Creatinine* 0.7 mg/dL (0.5-1.5); Est. Creatinine Clearance* 60.81; Estimated Glomerular Filt Rate 93 ml/min
[2024-04-26 07:05] LABS: Alanine Aminotransferase* 14 U/L (4-50); Alkaline Phosphatase* 84 U/L (40-150); Anion Gap 3 mEq/L (7-15); Aspartate Amino Transferase* 18 U/L (12-35); Blood Urea Nitrogen* 15 mg/dL (7-30); Calcium* 8.3 mg/dL (8.4-10.6); Carbon Dioxide* 24 mmol/L (20-32); Glucose* 88 mg/dL (60-115); Magnesium* 1.5 mg/dL (1.5-2.6); Total Protein* 5.2 g/dL (6.0-8.3)
[2024-04-26 07:08] LABS: C Reactive Protein* 1.7 mg/dL (0.5-1.0)
[2024-04-26 07:10] LABS: Percent Iron Saturation 25 % (20-50); Total Iron Binding Capacity 192 ug/dL (261-462)
[2024-04-26] MEDS: MULTIVITAMIN/MINERALS 1 TABLET 1 TAB PO (08:32)
[2024-04-26] MEDS: FOLIC ACID 1 MG TABLET PO (08:32)
[2024-04-26] MEDS: ASPIRIN 81 MG TABLET EC PO (08:32)
[2024-04-26] MEDS: TAMSULOSIN HCL 0.4 MG CAPSULE PO (08:32)
[2024-04-26] MEDS: VANCOMYCIN 125 MG CAPSULE 500 MG PO (08:32)
[2024-04-26] MEDS: CLOPIDOGREL 75 MG TABLET PO (08:32)
--- NOTE | 2024-04-26 10:37 | PM.DS1 ---
DS: Providers Provider Date Seen: 04/26/24 Date of admission: 04/24/24 15:55 Primary care physician: Zuri Swain PA-C Admitting Clinician: Ivett Dexter MD Attending Physician on discharge: Ivett Dexter MD Date of Discharge: 04/26/24 DS: Diagnosis Discharge Diagnosis (1) C. difficile colitis: Status: Acute Problem details: - patient had a recent colitis/diarrhea disease with C diff test positive, was discharged on p.o. vanc but according to his daughter he was not compliant with antibiotics. - by hospital day 3 - met discharge criteria - outpatient vancomycin plan: 125mg QID 14 days, 125mg TID x 7 days, 125mg BID x 7 days, 125mg daily x 7 days, 125mg q48hr x 7 days, 125mg q3days x 7 days - made handout for patient outlining an easy way to be compliant (2) Severe sepsis: Status: Acute Problem details: - Patient meets criteria for severe sepsis - resolved by 04/25 - lactic acid 5.4 --> 1.9 (resolved with IVF) - patient was given IV fluids and his blood pressure improved and lactic acidosis resolved. (3) IVONNE (acute kidney injury): Status: Acute Problem details: - Baseline 0.7 - resolved (4) Acidosis, lactic: Status: Acute Problem details: - lactic acid 5.4 at presentation - patient was given IV fluids and his lactic acidosis resolved. (5) Anemia, chronic disease: Status: Acute Problem details: baseline hgb about 10. no obvious bleeding (6) Alcohol abuse: Status: Acute Problem details: - Reports 4 beers during the day and whiskey at bedtime. - Denies previous alcohol withdrawal symptoms or seizure. - [facility] protocol ordered - thiamine, folic acid, multivitamin tabs ordered - IV fluids given (7) Coronary artery disease: Status: Acute Problem details: - PCI > 10 yrs ago, on DAPT - On his previous admission, pt was found to be bradycardic and his BB was discontinued due to bradycardia. Patient can not remember if he is taking metoprolol. (8) Hyperlipidemia: Status: Acute Problem details: On atorva, resumed (9) Hypertension: Status: Acute Problem details: -Holding Lisinopril d/t suspected IVONNE. 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 The 1st in early summer 2023 was treated with Cipro and Flagyl and was C diff negative. He had a recurrence of diarrhea in March of 2024 that was C diff positive. He also had a UTI. The combination of oral vancomycin and oral ciprofloxacin were prescribed at this admission and at discharge. There is concerned that he was not compliant with medications. He presented again on 04/24/2024 with severe sepsis, lactic acidosis, IVONNE and recurrent C diff diarrheal illness. Again he was stabilized with IV fluids and p.o. vancomycin. At discharge on 04/26/2024 he was given a long taper of oral vancomycin and counseling on alcohol abstinence and compliance with suggested medication regimen. BRIEF HOSPITAL COURSE: Patient was admitted for 3 days. Synopsis of acute inpatient issues are outlined above. Chronic medical conditions with notable findings outlined above. Essentially his lactic acidosis and his mild IVONNE resolved quickly with IV fluids, p.o. vancomycin. By day 3 he met discharge criteria. He had not had any diarrheal stools in over 12 hours. He was continent. His strength had returned. I had a lengthy discussion with his daughter, she worries about his compliance. There is no evidence of cognitive decline and I emphasized with her regarding independence adults making their own less than desired decisions. DISCHARGE MEDICATIONS: See Reconciled list - SIGNIFICANT CHANGES: Long taper oral vancomycin 125mg QID 10 days, 125mg TID x 7 days, 125mg BID x 7 days, 125mg daily x 7 days, 125mg q48hr x 3 doses, 125mg q3days x 2 doses Specific instructions to the patient and follow-up are outlined below. REVIEW OF SYSTEMS No new chest pain or dyspnea Pain controlled No voiding difficulties Tolerating diet challenge PHYSICAL EXAM: CONSTITUTIONAL: Alert, no acute distress. Color improved. Energy improved. VITAL SIGNS: see record. HEENT: Normocephalic, atraumatic. PERRL, EOMI, conjunctivae pink, no scleral icterus. Ears and nose externally normal. Pharynx normal. NECK: No JVD. No carotid bruit, no thyromegaly, no adenopathy. CHEST: Clear to auscultation bilaterally. HEART: S1 and S2 normal. Edema ABDOMEN: Soft, nontender. Normal bowel sounds. MUSCULOSKELETAL: No gross joint deformity or swelling. NEURO: Cranial nerves intact. Grossly intact. No asymmetric findings. SKIN: No rashes, petechiae, concerning changes PSYCHIATRIC: Mood euthymic. DISPOSITION: Time spent on discharge 37 minutes. Time spent discussing smoking cessation with patient: more than 10 minutes Status at Discharge Overall status at discharge: patient is progressing back to baseline Time Spent with Patient Time attestation: Total time spent providing and/or coordinating discharge services: Time spent: Greater than 30 minutes Exam Const: Vital Signs, click to edit/add: Vital Signs - 24 hr 04/25/24 11:00 04/25/24 15:00 04/25/24 15:00 Temperature 97.7 F Pulse Rate 51 L Pulse Rate [Pulse Oximeter] 57 L Pulse Rate [orthos tatic lying Right Pulse Oximeter] Pulse Rate [orthos tatic sitting Righ t Pulse Oximeter] Pulse Rate [orthos tatic standing Rig ht Pulse Oximeter] Respiratory Rate 16 Blood Pressure [Le ft Arm] Blood Pressure [Ri ght Arm] 107/53 L Blood Pressure [or thostatic lying Ri ght Arm] Blood Pressure [or thostatic sitting Right Arm] Blood Pressure [or thostatic standing Right Arm] Pulse Oximetry 96 Oxygen Delivery Me thod Room Air Room Air 04/25/24 15:39 04/25/24 15:53 04/25/24 19:24 Temperature 97.9 F 97.9 F Pulse Rate Pulse Rate [Pulse Oximeter] 61 51 L Pulse Rate [orthos tatic lying Right Pulse Oximeter] 52 L Pulse Rate [orthos tatic sitting Righ t Pulse Oximeter] 49 L Pulse Rate [orthos tatic standing Rig ht Pulse Oximeter] 61 Respiratory Rate 16 16 Blood Pressure [Le ft Arm] Blood Pressure [Ri ght Arm] 112/64 Blood Pressure [or thostatic lying Ri ght Arm] 104/62 Blood Pressure [or thostatic sitting Right Arm] 101/58 L Blood Pressure [or thostatic standing Right Arm] 98/55 L Pulse Oximetry 96 96 Oxygen Delivery Me thod Room Air Room Air 04/25/24 19:25 04/25/24 23:00 04/25/24 23:22 Temperature 97.9 F Pulse Rate 50 L Pulse Rate [Pulse Oximeter] 51 L 54 L Pulse Rate [orthos tatic lying Right Pulse Oximeter] Pulse Rate [orthos tatic sitting Righ t Pulse Oximeter] Pulse Rate [orthos tatic standing Rig ht Pulse Oximeter] Respiratory Rate 16 16 Blood Pressure [Le ft Arm] Blood Pressure [Ri ght Arm] 112/64 Blood Pressure [or thostatic lying Ri ght Arm] Blood Pressure [or thostatic sitting Right Arm] Blood Pressure [or thostatic standing Right Arm] Pulse Oximetry 96 Oxygen Delivery Me thod Room Air 04/25/24 23:25 04/25/24 23:27 04/26/24 03:21 Temperature 97.4 F L 97.4 F L 98.6 F Pulse Rate Pulse Rate [Pulse Oximeter] 54 L 54 L 50 L Pulse Rate [orthos tatic lying Right Pulse Oximeter] Pulse Rate [orthos tatic sitting Righ t Pulse Oximeter] Pulse Rate [orthos tatic standing Rig ht Pulse Oximeter] Respiratory Rate 16 16 16 Blood Pressure [Le ft Arm] Blood Pressure [Ri ght Arm] 100/54 L 100/54 L 99/51 L Blood Pressure [or thostatic lying Ri ght Arm] Blood Pressure [or thostatic sitting Right Arm] Blood Pressure [or thostatic standing Right Arm] Pulse Oximetry 94 94 94 Oxygen Delivery Me thod Room Air Room Air Room Air 04/26/24 03:24 04/26/24 07:15 04/26/24 07:32 Temperature 98.6 F 98.5 F Pulse Rate 49 L Pulse Rate [Pulse Oximeter] 50 L 50 L Pulse Rate [orthos tatic lying Right Pulse Oximeter] Pulse Rate [orthos tatic sitting Righ t Pulse Oximeter] Pulse Rate [orthos tatic standing Rig ht Pulse Oximeter] Respiratory Rate 16 16 Blood Pressure [Le ft Arm] 109/62 123/69 Blood Pressure [Ri ght Arm] 99/51 L Blood Pressure [or thostatic lying Ri ght Arm] Blood Pressure [or thostatic sitting Right Arm] Blood Pressure [or thostatic standing Right Arm] Pulse Oximetry 94 96 Oxygen Delivery Me thod Room Air Room Air 04/26/24 07:33 04/26/24 10:30 04/26/24 10:31 Temperature 98.5 F 98.1 F 98.1 F Pulse Rate Pulse Rate [Pulse Oximeter] 50 L 67 67 Pulse Rate [orthos tatic lying Right Pulse Oximeter] Pulse Rate [orthos tatic sitting Righ t Pulse Oximeter] Pulse Rate [orthos tatic standing Rig ht Pulse Oximeter] Respiratory Rate 16 16 16 Blood Pressure [Le ft Arm] 123/69 118/61 118/61 Blood Pressure [Ri ght Arm] Blood Pressure [or thostatic lying Ri ght Arm] Blood Pressure [or thostatic sitting Right Arm] Blood Pressure [or thostatic standing Right Arm] Pulse Oximetry 96 95 95 Oxygen Delivery Me thod Room Air Room Air Room Air DS: Data Data Completed and Pending Labs on day of discharge: Labs from last 24 hours 04/26/24 06:12 WBC 3.51 L RBC 3.40 L Hgb 10.2 L Hct 31.5 L MCV 93 MCH 30 MCHC 32 Plt Count 161 Sodium 139 Potassium 3.8 Chloride 112 Carbon Dioxide 24 Anion Gap 3 L BUN 15 Creatinine 0.7 Estimated Creat Clear 60.81 Estimated GFR 93 Glucose 88 Calcium 8.3 L Magnesium 1.5 Iron 49 TIBC 192 L % Saturation 25 Total Bilirubin 0.6 AST 18 ALT 14 Alkaline Phosphatase 84 C-Reactive Protein 1.7 H Total Protein 5.2 L Albumin 2.8 L TSH 1.280 Discharge Plan Discharge Disposition: Home w/ Parent or Adult Date of Admission: 04/24/24 15:55 Attending Provider on Discharge: Franca Biggs Primary Care Provider: Zuri Swain Anticipated Discharge Date/Time: 04/26/24 09:52 Discharge Medications: New vancomycin [Vancocin] 125 mg capsule See Rx Instructions .ROUTE .COMPLEX Qty: 87 0RF Rx Instructions: 125mg QID 10 days, 125mg TID x 7 days, 125mg BID x 7 days, 125mg daily x 7 days, 125mg q48hr x 3 doses, 125mg q3days x 2 doses Continued aspirin 81 mg tablet,delayed release (DR/EC) 81 mg PO DAILY lisinopril 20 mg tablet 20 mg PO DAILY Qty: 90 3RF albuterol sulfate 90 mcg/actuation HFA aerosol inhaler 2 puff inhalation Q4-6H PRN (Reason: shortness of breath or wheezing) Qty: 8.5 3RF metoprolol succinate 25 mg tablet extended release 24 hr 25 mg PO DAILY atorvastatin 80 mg tablet 80 mg PO DAILY Hold Instructions: Resume on 04/07/24. clopidogrel 75 mg tablet 75 mg PO DAILY tamsulosin 0.4 mg capsule 0.4 mg PO DAILY montelukast 10 mg tablet 10 mg PO QPM Discontinued ciprofloxacin HCl [Cipro] 250 mg tablet 250 mg PO BID 7 Days Qty: 14 0RF fidaxomicin 200 mg tablet 200 mg PO Q12H Qty: 20 0RF Discharge Orders: Discharge Order (Routine); Ordered 04/26/24 Ordered By: Franca Biggs Patient Education: Vancomycin (By mouth), C. Diff (Clostridioides Difficile) Infection (DC) Additional Instructions: Take all your medication! No drinking while on this antibiotic. Stay in [place] until you are thru this infection. See attached schedule on your medication plan. Take care of yourself! Activity Level: Activity as Tolerated Discharge Diet: Regular Follow Up Appointments: Zuri Swain PA-C [Primary Care Provider] - 05/03/24 10:45 am ([facility] for follow-up.) Forms: [employer] Info Instructions
--- NOTE | 2024-04-26 14:10 | PC.NURSE ---
Pt pleasant and cooperative. Pt alert and oriented. Pt had no complaints of pain. CWAW scores are zero. Pt up with SBA. Pt?s IV removed; catheter intact. Pt discharged home with daughter. Pt given tracking tool for antibiotic. Pt and daughter educated on the importance of taking the antibiotic as prescribed, finishing all doses and not consuming alcohol while on this medication.?
== END 2024-04-26 13:50 | disposition home or self-care (01) | DRG 371 ==
LOC: ED 14:17 → MEDSURG 15:54
PROVIDERS: Family Medicine; Admitting Provider Student in an Organized Health Care Education/Training Program; Emergency Provider Emergency Medicine; PCP Physician Assistant Medical; Visit Provider Student in an Organized Health Care Education/Training Program
DX: A04.71 Enterocolitis due to Clostridium difficile, recurrent (principal); A41.9 Sepsis, unspecified organism; R65.20 Severe sepsis without septic shock; N17.9 Acute kidney failure, unspecified; E87.21 Acute metabolic acidosis; D64.9 Anemia, unspecified; I95.9 Hypotension, unspecified; I10 Essential (primary) hypertension; F10.10 Alcohol abuse, uncomplicated; F17.290 Nicotine dependence, other tobacco product, uncomplicated; Z91.148 Patient's other noncompliance with medication regimen for other reason; I35.0 Nonrheumatic aortic (valve) stenosis; R01.1 Cardiac murmur, unspecified; I25.10 Atherosclerotic heart disease of native coronary artery without angina pectoris; I25.2 Old myocardial infarction; Z95.5 Presence of coronary angioplasty implant and graft; E78.5 Hyperlipidemia, unspecified
CPT/HCPCS: 36415; 71045; 74019; 80048; 80053; 80076; 81001; 82077; 83540; 83550; 83605; 83690; 83735; 84100; 84443; 85025; 85027; 86140; 87086; 87493; 87631; 93005; 99284; 99285; A9153; A9270; J1650; J2405; J7030

== ENCOUNTER 2024-05-19 21:49 | Outpatient (REF) | payer MEDICARE, BC, SELFPAY ==
[2024-05-19 22:14] LABS: Basophils Absolute Auto 0.05 K/uL (0.00-0.30); Basophils Percent Auto 0.9 % (0.0-3.0); Eosinophils Absolute Auto 0.11 K/uL (0.00-0.50); Eosinophils Percent Auto 1.9 % (0.0-7.0); Hematocrit 39.8 % (37.0-53.0); Hemoglobin* 12.6 gm/dL (13.5-17.5); Immature Granulocytes Abs Auto 0.02 K/uL (0.00-0.30); Immature Granulocytes Pct Auto 0.3 %; Lymphocytes Percent Auto 15.8 % (20-44); Mean Corpuscular HGB Conc 32 gm/dL (32-36); Mean Corpuscular Hemoglobin 29 pg (26-34); Mean Corpuscular Volume 92 fL (80-100); Monocytes Percent Auto 9.9 % (0.0-11.0); Neutrophils Absolute Auto 4.18 K/uL (1.7-7.0); Neutrophils Percent Auto 71.2 % (42.0-72.0); Platelet Count* 297 K/uL (140-440); RDW Coefficient of Variation % 13.6 % (11.5-15.5); Red Blood Count 4.35 m/uL (4.30-5.90); White Blood Count* 5.87 K/uL (4.50-11.00)
[2024-05-19 22:16] LABS: Slide Review Reflex No
[2024-05-19 22:20] LABS: Chloride* 105 mmol/L (96-114); Sodium* 140 mmol/L (135-149)
[2024-05-19 22:21] LABS: Potassium* 4.6 mmol/L (3.6-5.1)
[2024-05-19 22:23] LABS: Alanine Aminotransferase* 62 U/L (4-50); Alkaline Phosphatase* 113 U/L (40-150); Anion Gap 6 mEq/L (7-15); Aspartate Amino Transferase* 48 U/L (12-35); Bilirubin Total* 0.5 mg/dL (0.1-1.5); Blood Urea Nitrogen* 20 mg/dL (7-30); Calcium* 9.8 mg/dL (8.4-10.6); Carbon Dioxide* 29 mmol/L (20-32); Creatinine* 0.7 mg/dL (0.5-1.5); Estimated Glomerular Filt Rate 93 ml/min; Glucose* 103 mg/dL (60-115); Total Protein* 6.7 g/dL (6.0-8.3)
[2024-05-19 22:55] LABS: Hepatitis B Surface Antigen* Negative (Negative)
[2024-05-19 23:13] LABS: Hepatitis C Virus Antibody* Negative (Negative)
[2024-05-19 23:15] LABS: Hepatitis B Surface Antibody* Negative (Negative)
[2024-05-22 13:30] LABS: Hepatitis B Core Antibodies Negative (Negative)
[2024-05-23 11:14] LABS: Albumin 3.62 g/dL (3.75-5.01); Alpha 1 Globulin 0.31 g/dL (0.19-0.46); Total Protein, Serum 6.4 g/dL (6.3-8.2)
== END 2024-05-19 21:50 | disposition home or self-care (01) ==
LOC: NPINS 21:49
PROVIDERS: PCP Physician Assistant Medical; Visit Provider Dermatology
DX: R21 Rash and other nonspecific skin eruption (principal); L29.9 Pruritus, unspecified; L29.89 Other pruritus
CPT/HCPCS: 80053; 83516; 84165; 84443; 85025; 86704; 86706; 86803; 87340; 88346; 88350

== ENCOUNTER 2025-07-05 11:30 | Outpatient (CLI) | payer MEDICARE, BC, SELFPAY | END 2025-07-05 11:31 | disposition home or self-care (01) | LOC: NFLDREF 07-11 04:50 | PROVIDERS: PCP Physician Assistant Medical; Referring Provider Physician Assistant Medical; Visit Provider Physician Assistant Medical | DX: E78.00 Pure hypercholesterolemia, unspecified (principal) | CPT/HCPCS: 80053; 80061; 84443 ==

== ENCOUNTER 2025-07-07 22:11 | Emergency (ER) | payer MEDICARE, BC, SELFPAY ==
--- OUTSIDE RECORDS SUMMARY | 2024-08-14 09:43 | XMS_ITS | Continuity of Care Document ---
Author Organization [facility] Address [address] [address] [place] [address] Phone Care Team Providers Care Treatment Technician Name Role Phone Link Ezequiel CARBALLO Unavailable Unavailable Allergies, Adverse Reactions, Alerts Substance Reaction Status Criticality No Known Allergies Active No Inform ation Medications Medication Instructions Dosage Effective Dates (start - stop) Status Comments vancomycin 125 mg capsule take 1 capsule by ORAL route 4 times every day 125 MG - Active Herbal medications/suppleme nts (unknown strength) Kefir probiotic Not Available - Active albuterol sulfate HFA 90 mcg/actuation aerosol inhaler inhale 1 puff by INHALATION route every day as needed 1 puff - Active aspirin 81 mg tablet,delayed release take 1 tablet by oral route every day 81 MG - Active atorvastatin 80 mg tablet take 1 tablet by oral route every day 80 MG - Active clopidogrel 75 mg tablet take 1 tablet by oral route every day 75 MG - Active lisinopril 20 mg tablet take 1 Tablet by oral route every day 20 MG - Active metoprolol succinate ER 25 mg tablet,extended release 24 hr take 1 tablet by oral route 2 times every day 25 MG - Active montelukast 10 mg tablet take 1 tablet by oral route every day as needed 10 MG - Active tamsulosin 0.4 mg capsule take 1 capsule by ORAL route every day 0.4 MG - Active Procedures Procedure Date Offic/outpt E&m [place] Advance Directives Directive Yes / No Effective Date File Name No Information Encounters Encounter Description Practice Location Reason(s) For Visit Diagnoses Date Provider Providers Copied on Encounter [facility], [address] [address], [place], [place], [id number], [place] tel: [phone] [facility] No Information 4 Link MD Nieves. [address] [place] [address], [address], [id number] , [place]. tel: [phone] [facility], [address] [address], [place], [place], [id number], [place] tel: [phone] [facility] No Information 4 Link MD Nieves. [address] [place] [address], [id number] , [place]. tel: [phone] [facility], [address] [address], [place], [place], [id number], tel: [phone] [facility] Recurrent Clostridioides difficile infection 4 Link MD Nieves. [address] [place] [address], [id number] , [place]. tel: [phone] [facility], [address] [address], [place], [place], [id number], [place] tel: [phone] [facility] No Information 4 Link MD Nieves. [address] [place] [address], [id number] , [place]. tel: [phone] Referring Provider: Referral Self, USE FOR SELF REFERRALS. [facility], [address] [address], [place], [place], [id number], [place] tel: [phone] [facility] Recurrent Clostridioides difficile infection 4 Link MD Nieves. [address] [place] [address], [place], [id number] , [place]. tel: [phone] Offic/outpt E&m [place] [facility], [address] [address], [place], [place], [id number], [place] tel: [phone] [facility] GI Symptoms or Concerns (chief complaint) Recurrent Clostridioides difficile infection Apr- 4 Salomón Nieves. [address] [facility], [facility] [address], [place], [place], [id number] , [place]. [phone] Referring Provider: Zuri DIALLO, [address], [place], [address]. tel:[phone] [facility], [address] [address], [place], [place], [id number], [place] [phone] [facility] No Information Apr- 4 Bharath Gil. [address] [facility], [facility] [address], [place], [place], [id number] , [place]. [phone] Family History Family Member Type Diagnosis Age At Onset No Information Immunizations Vaccine Date Status Comments tetanus toxoid, reduced diphtheria toxoid, and acellular pertussis vaccine, adsorbed administered Note: [employer] b i-directional interface ; Source: Other Registry SARS-COV-2 (COVID-19) vaccin e, mRNA, spike protein, LNP, preservative free, 30 mcg/0.3mL dose administered Note: [facility] bi-direct ional interface ; Source: Other Registry SARS-COV-2 (COVID-19) vaccin e, mRNA, spike protein, LNP, preservative free, 30 mcg/0.3mL dose administered Note: [facility] bi-direct ional interface ; Source: Other Registry SARS-COV-2 (COVID-19) vaccin e, mRNA, spike protein, LNP, preservative free, 30 mcg/0.3mL dose administered Note: [facility] bi-direct ional interface ; Source: Other Registry Payers Payer name Insurance type Covered libertarian ID Authoriza tion(s) No Information Social History Type Description Quantity Date Captured Comments Alcohol Use Details Unknown Caffeine Use Details Unknown Tobacco Use Status Smoking Status No Information Sex Male Chief Complaint And Reason For Visit No Information Reason For Referral Reason For Referral No Information Plan Of Treatment Date Type Action Status Referral Ordered: C Difficile Toxin Gene YADIRA, Rfx To C diff Toxins A+B,EIA Appointment date/timeframe: 07/10/2024 ordered History Of Present Illness Encounter Date Complaint History Of Prese nt Illness GI Symptoms or Concerns I was as ked to see Gustavo by DAYSI Menezes, for consultation of recurrent C. difficile.He states that he was hospitalized in [place] for C. difficile infection in early March. Subsequently he was hospitalized twice in [place] for a recurrent C. difficile infection. Looking through the records that were sent over, it looks like he was not compliant with antibiotic therapy on at least 1 of these recurrences. At the last hospitalization, he was discharged on a vancomycin taper. He is currently taking vancomycin 125 mg 3 times per day.On this regimen he is currently doing very well. He describes 1 formed bowel movement per day. Occasionally he has some mild urgency. Occasionally he has a right lower quadrant ache. He denies any blood in his stools. He has some occasional nausea but this seems to be improving. He reports his appetite is normal. He notes that he had previously lost 25 pounds from when he was initially hospitalized, however he states that his weight is stable since his last hospitalization earlier this month.Past medical history is notable for microscopic colitis.He does smoke 4 to 5 cigars/day. He has not drank any alcohol for the past 6 weeks. Functional Status Date Functional Assessmen t No Information Instructions Date Instruction Additional Infor mation No Information Assessments Type Assessment Date No Information Patient Care Teams Name Effective Dates (start - stop) Status Members No Information
--- OUTSIDE RECORDS SUMMARY | 2024-08-14 09:43 | XMS_ITS | Continuity of Care Document ---
Author Organization [facility] Address [address] [address] [place] [address] Phone Care Team Providers Care Rn Community Name Role Phone Link Ezequiel CARBALLO Unavailable [...] Diagnoses Date Provider Providers Copied on Encounter [facility], [address] [address], [place], [place], [id number], [place] tel: [phone] [facility] No Information 4 Link MD Nieves. [address] [place] [address], [address], [id number] , [place]. tel: [phone] [facility], [address] [address], [place], [place], [id number], [place] tel: [phone] [facility] No Information 4 Link MD Nieves. [address] [place] [address], [id number] , [place]. tel: [phone] [facility], [address] [address], [place], [place], [id number], tel: [phone] [facility] Recurrent Clostridioides difficile infection 4 Link MD Nieves. [address] [place] [address], [id number] , [place]. tel: [phone] [facility], [address] [address], [place], [place], [id number], [place] tel: [phone] [facility] No Information 4 Link MD Nieves. [address] [place] [address], [id number] , [place]. tel: [phone] Referring Provider: Referral Self, USE FOR SELF REFERRALS. [facility], [address] [address], [place], [place], [id number], [place] tel: [phone] [facility] Recurrent Clostridioides difficile infection 4 Link MD Nieves. [address] [place] [address], [place], [id number] , [place]. tel: [phone] Offic/outpt E&m [place] [facility], [address] [address], [place], [place], [id number], [place] tel: [phone] [facility] GI Symptoms or Concerns (chief complaint) Recurrent Clostridioides difficile infection Apr- 4 Salomón Nieves. [address] [facility], [facility] [address], [place], [place], [id number] , [place]. [phone] Referring Provider: Zuri DIALLO, [address], [place], [address]. tel:[phone] [facility], [address] [address], [place], [place], [id number], [place] [phone] [facility] No Information Apr- 4 Bharath Gil. [address] [facility], [facility] [address], [place], [place], [id number] , [place]. [phone] Family History Family Member Type Diagnosis Age At Onset No Information Immunizations Vaccine Date Status Comments tetanus toxoid, reduced diphtheria toxoid, and acellular pertussis vaccine, adsorbed administered Note: [employer] b i-directional interface ; Source: Other Registry [...] Registry Payers Payer name Insurance type Covered democrat ID Authoriza tion(s) No Information Social History [...] difficile.He states that he was hospitalized in [place] for C. difficile infection in early March. Subsequently he was hospitalized twice in [place] for a recurrent C. difficile infection. Looking [...]
[2025-07-07] VITALS (19 sets, daily range): BP systolic 92–127; BP diastolic 51–67; PULSE 49–63; RESP 7–18; TEMP 35.8; O2SAT 92–100; BMI 23.7
--- OUTSIDE RECORDS SUMMARY | 2025-07-07 22:14 | XMS_ITS | Clinical Summary ---
Author Organization [facility] Address [address] [place] [id number] Care Team Providers Care Music Store Manager Name Role Phone Clinic, [facility] Medical Primary Care Provider Allergies No known active allergies Medications albuterol (ALBUTEROL) 108 (90 BASE) MCG/ACT inhaler Inhale 2 puffs into the lungs every 4 hours as needed (wheeze, short of breath, cough) 1 Inhaler 0 08/08/2014 Active aspirin 81 MG EC tablet Take 81 mg by mouth daily Active atorvastatin (LIPITOR) 80 MG tablet Take 80 mg by mouth daily Active clopidogrel (PLAVIX) 75 MG tablet Take 75 mg by mouth daily Active lisinopril (ZESTRIL) 20 MG tablet Take 20 mg by mouth daily Active metoprolol succinate ER (TOPROL XL) 25 MG 24 hr tablet Take 25 mg by mouth daily Active tamsulosin (FLOMAX) 0.4 MG capsule Take 0.4 mg by mouth daily Active Social History Tobacco Use Types Packs/Day Years Used Date Smoking Tobacco: Every Day Cigarettes Tobacco Cessation:Ready to Q uit: Not Asked; Counseling Given: Not Answered Alcohol Use Standard Drinks/Week Comments Yes 40.8 (1 standard drink = 0.6 oz pure alcohol) Adolescent Education Answer Date Record ed Getting School Help Needed Not on file 05/15 Sex and Gender Information Value Date Recorded Sex Assigned at Not on file Legal 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 Gender Identity Not on file Sexual Orientation Not on file Last Filed Vital Signs Vital Sign Reading Time Taken Comments Blood Pressure 145/76 11/04/2022 12:14 PM CDT Pulse 53 11/04/2022 12:14 PM CDT Temperature 36.5 C (97.7 F) 11/04/2022 9:00 AM CDT Respiratory Rate 16 11/04/2022 12:14 PM CDT Oxygen Saturation 95% 11/04/2022 12:14 PM CDT Inhaled Oxygen Concentration - - Weight 80 kg (176 lb 6.4 oz) 11/03/2022 4:18 PM CDT Height 180.3 cm (5' 11) 11/03/2022 4:18 PM CDT Body Mass Index 24.6 11/03/2022 4:18 PM CDT Plan of Treatment Health Maintenance Due Date Last Done Comments ADVANCE CARE PLANNING 1942 ANNUAL REVIEW OF HM ORDERS 1942 LIPID 1942 DTAP/TDAP/TD VACCINE (1 - Tdap) 1967 ZOSTER VACCINE (1 of 2) 1992 FALL RISK ASSESSMENT 2007 MEDICARE ANNUAL WELLNESS VISIT 2007 PNEUMOCOCCAL VACCINE 50+ YEARS (2 of 2 - PCV) 07/07/2013 07/07/2012 RSV VACCINE (1 - 1-dose 75+ series) 2017 PHQ-2 (once per calendar year) 2024 COVID-19 VACCINE (4 - 2024-2 6 season) 2025 07/22/2021, 10/22/2020, 10/01/2020 INFLUENZA VACCINE (#1) 2025 HPV VACCINE (No Doses Required) Completed MENINGITIS VACCINE Aged Out No longer eligible based on patient's age to complete this topic Insurance MEDICARE BCBS OF [place] MEDICARE SUPPLEMENT Advance Directives For more information, please contact: [phone] * Full Code (Latest Code Status on File) Date Activated Date Inactivated Comments 11/03/2022 4:52 AM 11/04/2022 6:19 PM All basic an d advanced life-sustaining interventions are performed as appropriate Question Answer Comments Code status determined by: Discussion with meli nt/ legal decision maker Care Teams Music Store Manager Relationship Specialty Start Date End Date Clinic, [address] [address] PCP - General 11/04/22
--- OUTSIDE RECORDS SUMMARY | 2025-07-07 22:14 | XMS_ITS | Clinical Summary ---
Author Organization [employer] [facility] Address [address] [place] [id number] Care Team Providers Care Tube Builder Name Role Phone Kolton Covarrubias MD Primary Care Provider U navailable Allergies No known active allergies Medications NITROGLYCERIN 0.4 MG SUBLINGUAL TAB Take one tablet under the tongue as needed 25 2 11/15/2008 Active aspirin enteric coated 81 mg tablet Take 81 mg by mouth once daily with a meal. Active metoprolol SR (TOPROL XL) 25 mg XL tablet Take 1 tablet by mouth once daily. 0 11/20/2009 Active clopidogrel (PLAVIX) 75 mg tabletIndicatio ns:acute coronary syndrome Take 75 mg by mouth once daily. 0 11/08/2012 Active atorvastatin (LIPITOR) 80 mg tablet Take 1 tablet by mouth once daily. 0 11/02/2013 Active lisinopril (PRINIVIL; ZESTRIL) 20 mg tablet Take 20 mg by mouth once daily. Active tadalafil (CIALIS) 10 mg tablet Take 10 mg by mouth once daily if needed. Take 30 minutes before sexual activity. 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 EF 48%. 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 S/p myocardial infarction 07/05/2012. Immunizations Immunization Administration Dates Next Due COVID-19 vaccine (i[employer] 30mcg/0.3mL) P F, MDV 10/22/2020,10/01/2020 Pneumococcal Poly,23-Valent (Pneumovax) 07/07/20 12 Family History Medical History Relation Name Comments Heart Disease Brother 2 age 6 7, myocardial infarction Cancer Father age 40 Other Mother age 93 Relation Name Status Comments Brother 1 (Age 67) Myocardial infarction Brother 2 Father (Age 40) Cancer Mother (Age 93) Social History Tobacco Use Types Packs/Day Years Used Date Smoking Tobacco: Every Day Cigarettes 0.5 30 Cigars Smokeless Tobacco: Never Comments:Currently on Chanti x Alcohol Use Standard Drinks/Week Comments Yes 0 (1 standard drink = 0.6 oz pur e alcohol) beer and whiskey daily Sex and Gender Information Value Date Recorded Sex Assigned at Not on file 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 Gender Identity Not on file Sexual Orientation Not on file Obstetrics History Last Filed Vital Signs Vital Sign Reading Time Taken Comments Blood Pressure 170/77 05/17/2019 12:35 PM CDT Pulse 58 05/17/2019 12:35 PM CDT Temperature 36.2 C (97.1 F) 12/22/2017 10:42 AM CDT Respiratory Rate 16 12/22/2017 1:54 PM CDT Oxygen Saturation 96% 05/04/2019 2:44 PM CDT Inhaled Oxygen Concentration - - Weight 86.2 kg (190 lb) 05/17/2019 12:35 PM CDT Height 180.3 cm (5' 11) 05/17/2019 12:35 PM CDT Body Mass Index 26.5 05/17/2019 12:35 PM CDT Plan of Treatment Health Maintenance Due Date Last Done Comments Tetanus booster 1953 Depression screening for age 12+ 1954 Zoster (shingles) series for age 50+ (1 of 2) 1992 Medicare Wellness for age 65+ 2007 Pneumococcal series for age 50+ (2 of 2 - PCV) 07/07/2013 07/07/2012 RSV vaccine for adults or (1 - 1-dose 75+ series) 2017 BMI (ht and wt on same day) for age 18+ 05/04/2020 05/04/2019 Influenza Vaccine (#1) 2025 Hepatitis B series for 19+ Aged Out N o longer eligible based on patient's age to complete this topic Medical Devices Implanted Type Area Box Maker Wood Device Identifier Shelf Expiration Date Model / Serial / Lot Iol Mcmullen +22.5 Acrysof Iq [id number] - [id number] Implanted:Qty: 1 on 12/08/2017 by Rock Billy MD at [facility] Left: Eye [employer] 08/09/2022 SN60WF.22. 5# / [id number] / Iol Mcmullen +22.5 Acrysof Iq Sn60wf - [id number] Implanted:Qty: 1 on 12/22/2017 by Rock Billy MD at [facility] Right: Eye [employer] 09/15/2021 SN60WF.22. 5# / [id number] / Insurance MEDICARE PART B HB ONLY MEDICARE PART A HB ONLY [facility] MEDICARE [place] ONLY Advance Directives * Full Code (Latest Code Status on File) Date Activated Date Inactivated Comments 12/22/2017 10:39 AM 12/22/2017 4:11 PM * Full Code Date Activated Date Inactivated Comments 12/08/2017 11:42 AM 12/08/2017 5:34 PM * Full Code Date Activated Date Inactivated Comments 11/14/2008 8:59 AM 11/15/2008 1:44 PM Care Teams Tube Builder Relationship Specialty Start Date End Date Kolton Covarrubias MD PCP - General Family Practice 10/26/17
--- NOTE | 2025-07-07 22:29 | ED.GENADULT ---
HPI - General Adult General Chief complaint: Syncope/Fainted Stated complaint: syncope Time Seen by Provider: 07/07/25 22:20 History of Present Illness HPI narrative: pt arrived via [facility]. EMS called for possible syncope. Blood sugar 129. IV , 18 gauge. 500 normal saline given. Pt nancy cardiac with Bp's in 90 's. PT states he has had six finders of [place] this evening. No reports head, neck, back pain . No shortness of breath. 85-year-old man presenting to the emergency department apparently after passing out. Does admit to drinking initially 6 fingers of Jonathan though tells me only 3 no chest pain or shortness of breath. He just passed out. Grandson who accompanies him says he heard a thud above and went to investigate. Suspected to have fallen backward. Mr. Hollis denies that is having any pain in his head neck or back. Does have a history of C diff and prior to my seeing him Mr. Hollis is incontinent of stool. Was cleaned up of diarrheal stool that began on the ambulance. He does note that he has had a history of C diff and treatment has included some form of fecal transplant or capsules at a minimum; that was this spring and got a lot better.. Looks like last time tested positive for C diff was April of 2024. He reports continued lose or diarrheal stools since although would later questioning says no he had a loose stool yesterday noon and then another loose 1 today. Otherwise he is having a well-formed stool daily. Last loose stool might have been a week ago. Early in the week he did get his COVID shot and was a little chilled following that. No measured fever. Related Data Home Medications ?Medication ?Instructions ?Recorded ?Confirmed aspirin 81 mg tablet,delayed 81 mg PO DAILY 03/19/22 07/05/25 release triamcinolone acetonide 0.1 % applic topical 07/05/25 07/05/25 topical cream Previous Rx's ?Medication ?Instructions ?Recorded albuterol sulfate 90 mcg/actuation 2 puff inhalation Q4-6H PRN 07/05/25 aerosol inhaler shortness of breath or wheezing #8.5 grams atorvastatin 80 mg tablet 80 mg PO DAILY #90 tabs 07/05/25 budesonide-formoterol HFA 160 2 puff inhalation BID #10.2 grams 07/05/25 mcg-4.5 mcg/actuation aerosol inhaler (Symbicort) clopidogrel 75 mg tablet 75 mg PO DAILY #90 tabs 07/05/25 hydroxyzine HCl 25 mg tablet 25 - 50 mg (1 - 2 x 25 mg) PO BID 07/05/25 itching #60 tabs lisinopril 20 mg tablet 20 mg PO DAILY #90 tabs 07/05/25 metoprolol succinate 25 mg 25 mg PO DAILY #90 tabs 07/05/25 tablet,extended release 24 hr tamsulosin 0.4 mg capsule 0.4 mg PO DAILY #90 caps 07/05/25 Allergies Allergy/AdvReac Type Severity Reaction Status Date / Time No Known Drug Allergies Allergy Verified 07/05/25 10:34 Review of Systems Status of ROS: Reports: 6 or more systems reviewed and unremarkable except as noted in History and below [facility] Medical History C. difficile colitis ?A04.72 - Enterocolitis due to Clostridium difficile, not specified as recurrent (ICD-10) Heart murmur ?R01.1 - Cardiac murmur, unspecified (ICD-10) Eczema ?L30.9 - Dermatitis, unspecified (ICD-10) Erectile dysfunction ?N52.9 - Male erectile dysfunction, unspecified (ICD-10) Sepsis ?A41.9 - Sepsis, unspecified organism (ICD-10) Alcohol abuse ?F10.10 - Alcohol abuse, uncomplicated (ICD-10) Lactic acidosis ?E87.20 - Acidosis, unspecified (ICD-10) History of VT (myocardial infarction) ?I25.2 - Old myocardial infarction (ICD-10) Actinic keratosis of right cheek ?L57.0 - Actinic keratosis (ICD-10) History of myocardial infarct at age greater than 60 years ?I25.2 - Old myocardial infarction (ICD-10) Surgical History Presence of stent in coronary artery ?Z95.5 - Presence of coronary angioplasty implant and graft (ICD-10) History of colonoscopy with polypectomy ?Z98.890 - Other specified postprocedural states (ICD-10) ?Z86.010 - Personal history of colonic polyps (ICD-10) History of cataract extraction ?Z98.49 - Cataract extraction status, unspecified eye (ICD-10) Family History Father Cancer Social History Narrative: He lives with his son and grandson. He smokes cigars, 5-6 per day. He drinks about 4 beers a day plus a whiskey at bedtime. Code status is full What is your current living situation?: I presently have a place to live Problems where you live: no known problems Problems where you live details: None In the past 12 months, utilities in danger of being shut off: no In past 12 months, lack of transportation kept you from medical appts, meetings, work, or getting things needed for daily living: no In the past 12 mos, have been you worried that your food would run out before you had money to buy more?: never true In the past 12 mos, the food you bought just didn't last and you didn't have money to buy more?: never true Highest level of school completed/degree received: high school graduate Smoking Status: Current every day smoker What tobacco products do you use: cigars Do you use any of these nicotine containing products: None Second hand tobacco smoke exposure: No How often do you have a drink containing alcohol: monthly or less Alcohol type: beer How many standard drinks containing alcohol do you have on a typical day: 3 or 4 How often do you have six or more drinks on one occasion: Never AUDIT-C Alcohol total score: 2 Non-prescribed substance use: denies use Caffeine: Yes (daily coffee) How often does anyone, including family, friends and others, physically hurt you: never How often does anyone, including family, friends and others, insult or talk down to you: never How often does anyone, including family, friends and others, threaten you with harm: never How often does anyone, including family, friends and others, scream or curse at you: never service: Yes Exam Narrative: Exam Narrative: Here with grandson. Smells strongly after having lost control bowels. Answers questions easily, fluidly. Teeth appear dry. These are false teeth and not ideally adhered. Some excoriations on lower extremities. No edema. No evidence of injury. Slurring speech little bit. Mid systolic crescendo murmur. In slower rate regular rhythm. Abdomen is soft and nontender. Neck is supple. No pain to palpation or deformity about the back. Head is atraumatic though does have some what looks like some dried blood on the nose over the bridge but no tenderness or swelling here. Lungs are clear. Const: Vital Signs, click to edit/add: Vital Signs - 24 hr 07/07/25 22:13 07/07/25 22:20 07/07/25 22:21 Temperature 96.5 F L Pulse Rate 52 L 49 L Pulse Rate [Left P ulse Oximeter] 52 L Respiratory Rate 16 Blood Pressure 100/63 Blood Pressure [Ri ght Upper Arm] 98/59 L Pulse Oximetry 95 94 94 Oxygen Delivery Me thod Room Air 07/07/25 22:30 07/07/25 22:31 07/07/25 22:45 Temperature Pulse Rate 50 L 50 L 53 L Pulse Rate [Left P ulse Oximeter] Respiratory Rate Blood Pressure 92/51 L Blood Pressure [Ri ght Upper Arm] Pulse Oximetry 94 94 96 Oxygen Delivery Me thod 07/07/25 22:48 07/07/25 22:53 07/07/25 23:00 Temperature Pulse Rate 54 L 50 L Pulse Rate [Left P ulse Oximeter] Respiratory Rate Blood Pressure 107/53 L Blood Pressure [Ri ght Upper Arm] Pulse Oximetry 97 98 97 Oxygen Delivery Me thod 07/07/25 23:02 07/07/25 23:15 07/07/25 23:16 Temperature Pulse Rate 50 L 50 L 51 L Pulse Rate [Left P ulse Oximeter] Respiratory Rate Blood Pressure 103/51 L 108/55 L Blood Pressure [Ri ght Upper Arm] Pulse Oximetry 95 98 97 Oxygen Delivery Me thod 07/07/25 23:30 07/07/25 23:32 07/07/25 23:46 Temperature Pulse Rate 52 L 51 L Pulse Rate [Left P ulse Oximeter] Respiratory Rate 18 Blood Pressure 102/57 L Blood Pressure [Ri ght Upper Arm] Pulse Oximetry 96 92 Oxygen Delivery Me thod 07/07/25 23:48 07/07/25 23:49 07/07/25 23:52 Temperature Pulse Rate 56 L 59 L 61 Pulse Rate [Left P ulse Oximeter] Respiratory Rate 7 L 7 L 12 Blood Pressure 127/67 126/66 Blood Pressure [Ri ght Upper Arm] Pulse Oximetry 100 98 99 Oxygen Delivery Me thod 07/07/25 23:53 07/08/25 00:00 07/08/25 00:02 Temperature Pulse Rate 63 57 L 56 L Pulse Rate [Left P ulse Oximeter] Respiratory Rate 13 8 L 11 L Blood Pressure 122/60 Blood Pressure [Ri ght Upper Arm] Pulse Oximetry 98 98 98 Oxygen Delivery Me thod 07/08/25 00:02 07/08/25 00:02 07/08/25 00:03 Temperature Pulse Rate 56 L 56 L 61 Pulse Rate [Left P ulse Oximeter] Respiratory Rate 11 L 11 L 18 Blood Pressure 122/60 122/60 Blood Pressure [Ri ght Upper Arm] Pulse Oximetry 98 98 98 Oxygen Delivery Me thod 07/08/25 00:15 07/08/25 00:16 07/08/25 00:30 Temperature Pulse Rate 59 L 54 L 55 L Pulse Rate [Left P ulse Oximeter] Respiratory Rate 16 17 16 Blood Pressure 130/70 Blood Pressure [Ri ght Upper Arm] Pulse Oximetry 97 96 97 Oxygen Delivery Me thod 07/08/25 00:31 07/08/25 00:45 07/08/25 00:46 Temperature Pulse Rate 61 57 L 56 L Pulse Rate [Left P ulse Oximeter] Respiratory Rate 17 6 L 14 Blood Pressure 131/72 127/62 Blood Pressure [Ri ght Upper Arm] Pulse Oximetry 97 97 96 Oxygen Delivery Me thod 07/08/25 01:00 07/08/25 01:01 07/08/25 01:15 Temperature Pulse Rate 58 L 61 58 L Pulse Rate [Left P ulse Oximeter] Respiratory Rate 17 18 17 Blood Pressure 122/80 Blood Pressure [Ri ght Upper Arm] Pulse Oximetry 80 L 80 L 90 Oxygen Delivery Me thod 07/08/25 01:16 07/08/25 01:17 07/08/25 01:30 Temperature Pulse Rate 59 L 56 L 64 Pulse Rate [Left P ulse Oximeter] Respiratory Rate 0 L 14 17 Blood Pressure 117/64 Blood Pressure [Ri ght Upper Arm] Pulse Oximetry 89 96 95 Oxygen Delivery Me thod 07/08/25 01:31 07/08/25 01:45 07/08/25 01:46 Temperature Pulse Rate 56 L 60 62 Pulse Rate [Left P ulse Oximeter] Respiratory Rate 17 12 12 Blood Pressure 131/70 130/69 Blood Pressure [Ri ght Upper Arm] Pulse Oximetry 96 96 95 Oxygen Delivery Me thod 07/08/25 02:00 07/08/25 02:01 07/08/25 02:15 Temperature Pulse Rate 58 L 64 61 Pulse Rate [Left P ulse Oximeter] Respiratory Rate 12 14 12 Blood Pressure 135/76 Blood Pressure [Ri ght Upper Arm] Pulse Oximetry 96 96 97 Oxygen Delivery Me thod 07/08/25 02:16 07/08/25 02:30 07/08/25 02:31 Temperature Pulse Rate 61 63 61 Pulse Rate [Left P ulse Oximeter] Respiratory Rate 12 7 L 17 Blood Pressure 128/70 134/70 Blood Pressure [Ri ght Upper Arm] Pulse Oximetry 96 96 96 Oxygen Delivery Me thod 07/08/25 02:45 07/08/25 02:47 07/08/25 03:00 Temperature Pulse Rate 60 62 61 Pulse Rate [Left P ulse Oximeter] Respiratory Rate 14 23 17 Blood Pressure 135/75 Blood Pressure [Ri ght Upper Arm] Pulse Oximetry 95 96 96 Oxygen Delivery Me thod 07/08/25 03:01 07/08/25 03:15 07/08/25 03:16 Temperature Pulse Rate 60 60 61 Pulse Rate [Left P ulse Oximeter] Respiratory Rate 10 L 16 13 Blood Pressure 138/68 133/68 Blood Pressure [Ri ght Upper Arm] Pulse Oximetry 96 96 95 Oxygen Delivery Me thod 07/08/25 03:30 07/08/25 03:31 07/08/25 03:45 Temperature Pulse Rate 60 60 57 L Pulse Rate [Left P ulse Oximeter] Respiratory Rate 12 0 L 16 Blood Pressure 139/70 Blood Pressure [Ri ght Upper Arm] Pulse Oximetry 96 95 95 Oxygen Delivery Me thod 07/08/25 03:47 07/08/25 04:00 Temperature Pulse Rate 61 63 Pulse Rate [Left P ulse Oximeter] Respiratory Rate 16 12 Blood Pressure 137/78 Blood Pressure [Ri ght Upper Arm] Pulse Oximetry 95 97 Oxygen Delivery Me thod Documenting provider has reviewed patient's vital signs: yes Course Vital Signs Vital signs: Initial Vital Signs Temperature 96.5 F L 07/07/25 22:13 Temperature Source Temporal Artery Scan 07/07/25 22:13 Pulse Rate 52 L 07/07/25 22:13 Pulse Rhythm Regular 07/07/25 22:13 Respiratory Rate 16 07/07/25 22:13 Blood Pressure 98/59 L 07/07/25 22:13 Blood Pressure Mean 72 07/07/25 22:13 Blood Pressure Position Semi-Fowlers 07/07/25 22:13 Pulse Oximetry 95 07/07/25 22:13 Oxygen Delivery Method Room Air 07/07/25 22:13 Vital Signs Temperature 96.5 F L 07/07/25 22:13 Pulse Rate 52 L 07/07/25 22:13 Respiratory Rate 16 07/07/25 22:13 Blood Pressure 98/59 L 07/07/25 22:13 Pulse Oximetry 95 07/07/25 22:13 Oxygen Delivery Method Room Air 07/07/25 22:13 Temperature 96.5 F L 07/07/25 22:13 Pulse Rate 63 07/08/25 04:00 Respiratory Rate 12 07/08/25 04:00 Blood Pressure 137/78 07/08/25 03:47 Pulse Oximetry 97 07/08/25 04:00 Oxygen Delivery Method Room Air 07/07/25 22:13 Medications Administered Medications: Discontinued Medications Generic Name Dose Route Start Last Admin Trade Name Freq PRN Reason Stop Dose Admin Sodium Chloride 1,000 mls @ 1,000 mls/hr 07/07/25 22:51 07/08/25 00:00 0.9 % Sodium Chloride 1000 Ml IV 07/07/25 23:50 Infused .Q1H ONE Infusion Sodium Chloride 1,000 mls @ 1,000 mls/hr 07/08/25 00:32 07/08/25 06:06 0.9 % Sodium Chloride 1000 Ml IV 07/08/25 01:31 Infused .Q1H ONE Infusion Medical Decision Making MDM Narrative Medical decision making narrative: Is not clear to me if this C diff ever cleared. Colonized? Does not appear to be having major symptoms from this. I would expect with alcohol could have been more prone to this fall. Monitoring for cardiac arrhythmia. Will be imaging his head. I suppose possible seizure or CVA. Does not appear to be having lingering symptoms than I might expect however. IV hydration. Check for sepsis. Alcohol level of 0.1 Lactate is notably elevated. I suspect this is more related to some combination of dehydration and alcohol. Repeat lactate about an hour and a half is improving. This was after L of normal saline. Given another L of normal saline. Urinalysis looks somewhat infected but not convincing. I would wait for culture to consider treatment. Head CT independently reviewed by me is without acute abnormality. Later is noted to have some expiratory wheeze. Says that he has COPD and was seen recently in clinic and prescribed a nebulizer but with clarification it is apparent he means an inhaler. Looks like as a controller medication but also albuterol. He does not feel short of breath currently at spite of the audible wheeze. Indication: Intoxication, fall, syncope Technique: Noncontrast CT through the head with multiplanar reformats Comparison: None Findings: Brain: No acute hemorrhage. No acute infarct. No significant mass effect or midline shift. No gross evidence of a mass lesion or cerebral edema. Moderate chronic sinus disease. Chronic cerebellar and basal ganglia infarcts. Ventricles: No acute abnormality appreciated. Orbits, sinuses, mastoids: No acute abnormality appreciated. Trace sinus disease. Calvarium and soft tissues: No acute abnormality appreciated. Impression: No acute abnormality appreciated. Please note that all CT scans at this facility use dose modulation, iterative reconstruction, and/or weight-based dosing when appropriate to reduce radiation dose to as low as reasonably achievable. Dictated by Jarrod Paula MD @ 07/07/2025 11:52:23 PM Not sure what to do with these 2 watery, which he corrects to loose, stools recently. Is positive however for C diff. I would be reluctant to treat the mady that overall has improved his bowel movements Did discuss this case with [facility]. They will be reviewing further and contacting Mr. Hollis with recommendations. Otherwise he feels well. Feels he can head home. Blood pressure is improved. Vitals otherwise stable. See patient discharge plan for further discussion Focus on hydration but not with alcohol for now. As discussed we did detect Clostridium difficile in your stool. I am not sure if you are having an active infection that requires treatment or whether you are colonized. I did reach out to [facility] and they will be calling you to discuss further treatment plan. Please expect a phone call today or tomorrow. Please return for marked increase in diarrhea or abdominal pain, worsening lightheadedness, associated fever. Medical Records Medical records reviewed: Yes I reviewed the patient's medical records Lab Data Lab results reviewed: Yes I reviewed the patient's lab results Labs: Lab Results 07/07/25 07/07/25 07/07/25 Range/Units 22:51 22:56 23:15 WBC 5.66 (4.50-11.00) K/uL RBC 4.43 (4.30-5.90) m/uL Hgb 13.4 L (13.5-17.5) gm/dL Hct 41.6 (37.0-53.0) % MCV 94 (80-100) fL MCH 30 (26-34) pg MCHC 32 (32-36) gm/dL RDW Coeff of Marv 14.0 (11.5-15.5) % Plt Count 183 (140-440) K/uL Neut % (Auto) 81.9 H (42.0-72.0) % Lymph % (Auto) 7.1 L (20-44) % [place] % (Auto) 8.8 (0.0-11.0) % Eos % (Auto) 1.1 (0.0-7.0) % Baso % (Auto) 0.2 (0.0-3.0) % Neut # (Auto) 4.60 (1.7-7.0) K/uL Lymph # (Auto) 0.40 L (0.90-2.90) K/uL [place] # (Auto) 0.50 (0.00-0.90) K/UL Eos # (Auto) 0.06 (0.00-0.50) K/uL Baso # (Auto) 0.01 (0.00-0.30) K/uL Abs Immat Gran (auto) 0.05 (0.00-0.30) K/uL Imm/Tot Granulo (auto) 0.9 % Sodium 138 (135-149) mmol/L Potassium 3.7 (3.6-5.1) mmol/L Chloride 101 (96-114) mmol/L Carbon Dioxide 24 (20-32) mmol/L Anion Gap 13 (7-15) mEq/L BUN 16 (7-30) mg/dL Creatinine 0.8 (0.5-1.5) mg/dL Estimated Creat Clear 59.61 Estimated GFR 88 ml/min Glucose 125 H (60-115) mg/dL Lactate 3.0 H (0.5-1.9) mmol/L Calcium 8.8 (8.4-10.6) mg/dL Troponin I < 0.01 (0.01-0.04) ng/mL Urine Color (Yellow) Urine Appearance (Clear) Urine pH (5.0-8.5) Ur Specific [place] (1.000-1.030) Urine Protein (Negative) Urine Glucose (UA) (Negative) Urine Ketones (Negative) Urine Blood (Negative) Urine Nitrite (Negative) Urine Bilirubin (Negative) Urine Urobilinogen (0.2-1.0) Ur Leukocyte Esterase (Negative) Urine RBC (0-2) Urine WBC (0-5) Ur Squamous Epith Cells (None-Few) Urine Bacteria (None) Stl C. diff Tox B Gene POSITIVE A* (Negative) Stl C. diff 027-NAP1-BI PRESUMPTIVE NEGATIVE (Negative) Ethyl Alcohol 0.10 H (0.01-0.03) % POC Troponin I 0.01 (0.01-0.04) ng/ml 07/07/25 07/08/25 Range/Units 23:51 00:50 WBC (4.50-11.00) K/uL RBC (4.30-5.90) m/uL Hgb (13.5-17.5) gm/dL Hct (37.0-53.0) % MCV (80-100) fL MCH (26-34) pg MCHC (32-36) gm/dL RDW Coeff of Marv (11.5-15.5) % Plt Count (140-440) K/uL Neut % (Auto) (42.0-72.0) % Lymph % (Auto) (20-44) % [place] % (Auto) (0.0-11.0) % Eos % (Auto) (0.0-7.0) % Baso % (Auto) (0.0-3.0) % Neut # (Auto) (1.7-7.0) K/uL Lymph # (Auto) (0.90-2.90) K/uL [place] # (Auto) (0.00-0.90) K/UL Eos # (Auto) (0.00-0.50) K/uL Baso # (Auto) (0.00-0.30) K/uL Abs Immat Gran (auto) (0.00-0.30) K/uL Imm/Tot Granulo (auto) % Sodium (135-149) mmol/L Potassium (3.6-5.1) mmol/L Chloride (96-114) mmol/L Carbon Dioxide (20-32) mmol/L Anion Gap (7-15) mEq/L BUN (7-30) mg/dL Creatinine (0.5-1.5) mg/dL Estimated Creat Clear Estimated GFR ml/min Glucose (60-115) mg/dL Lactate 2.4 H (0.5-1.9) mmol/L Calcium (8.4-10.6) mg/dL Troponin I (0.01-0.04) ng/mL Urine Color Dark yellow (Yellow) Urine Appearance Clear (Clear) Urine pH 5.5 (5.0-8.5) Ur Specific [place] 1.025 (1.000-1.030) Urine Protein 2+ A (Negative) Urine Glucose (UA) Negative (Negative) Urine Ketones Negative (Negative) Urine Blood Trace-intact A (Negative) Urine Nitrite Negative (Negative) Urine Bilirubin Negative (Negative) Urine Urobilinogen 0.2 (0.2-1.0) Ur Leukocyte Esterase Trace A (Negative) Urine RBC 2-5 A (0-2) Urine WBC 10-25 A (0-5) Ur Squamous Epith Cells Few (None-Few) Urine Bacteria Few A (None) Stl C. diff Tox B Gene (Negative) Stl C. diff 027-NAP1-BI (Negative) Ethyl Alcohol (0.01-0.03) % POC Troponin I (0.01-0.04) ng/ml Discharge Plan Discharge Clinical Impression: Alcohol intoxication, Fall, Clostridium difficile infection Patient Disposition: Home w/ Parent or Adult Condition: Improved Additional Instructions: Focus on hydration but not with alcohol for now. As discussed we did detect Clostridium difficile in your stool. I am not sure if you are having an active infection that requires treatment or whether you are colonized. I did reach out to [facility] and they will be calling you to discuss further treatment plan. Please expect a phone call today or tomorrow. Please return for marked increase in diarrhea or abdominal pain, worsening lightheadedness, associated fever. Prescriptions: No Action triamcinolone acetonide 0.1 % cream topical albuterol sulfate 90 mcg/actuation HFA aerosol inhaler 2 puff inhalation Q4-6H PRN (Reason: shortness of breath or wheezing) Qty: 8.5 3RF metoprolol succinate 25 mg tablet extended release 24 hr 25 mg PO DAILY Qty: 90 3RF lisinopril 20 mg tablet 20 mg PO DAILY Qty: 90 3RF atorvastatin 80 mg tablet 80 mg PO DAILY Qty: 90 3RF clopidogrel 75 mg tablet 75 mg PO DAILY Qty: 90 3RF tamsulosin 0.4 mg capsule 0.4 mg PO DAILY Qty: 90 3RF hydroxyzine HCl 25 mg tablet 25 - 50 mg PO BID Qty: 60 0RF budesonide-formoterol [Symbicort] 160-4.5 mcg/actuation HFA aerosol inhaler 2 puff inhalation BID Qty: 10.2 2RF aspirin 81 mg tablet,delayed release (DR/EC) 81 mg PO DAILY Follow Up/Referrals: Zuri Swain PASamanthaC [Primary Care Provider, Family Practice] Stand Alone Forms: [employer] Info Instructions
--- NOTE | 2025-07-07 22:51 | CRLHL7_ITS ---
For Patients: As a result of the Cures Act, medical imaging exams and procedure reports are released immediately into your electronic medical record. You may view this report before your referring provider. If you have questions, please contact your health care provider. Indication: Intoxication, fall, syncope Technique: Noncontrast CT through the head with multiplanar reformats Comparison: None Findings: Brain: No acute hemorrhage. No acute infarct. No significant mass effect or midline shift. No gross evidence of a mass lesion or cerebral edema. Moderate chronic sinus disease. Chronic cerebellar and basal ganglia infarcts. Ventricles: No acute abnormality appreciated. Orbits, sinuses, mastoids: No acute abnormality appreciated. Trace sinus disease. Calvarium and soft tissues: No acute abnormality appreciated. Impression: No acute abnormality appreciated. Please note that all CT scans at this facility use dose modulation, iterative reconstruction, and/or weight-based dosing when appropriate to reduce radiation dose to as low as reasonably achievable. Dictated by Jarrod Paula MD @ 07/07/2025 11:52:23 PM (Electronically Signed)
[2025-07-07 23:37] LABS: Lactate* 3.0 mmol/L (0.5-1.9)
[2025-07-07 23:38] LABS: Hematocrit* 41.6 % (37.0-53.0); Hemoglobin* 13.4 gm/dL (13.5-17.5); Immature Granulocytes Abs Auto 0.05 K/uL (0.00-0.30); Immature Granulocytes Pct Auto 0.9 %; Lymphocytes Absolute Auto 0.40 K/uL (0.90-2.90); Mean Corpuscular HGB Conc 32 gm/dL (32-36); Mean Corpuscular Hemoglobin 30 pg (26-34); Mean Corpuscular Volume 94 fL (80-100); RDW Coefficient of Variation % 14.0 % (11.5-15.5); Red Blood Count* 4.43 m/uL (4.30-5.90); White Blood Count* 5.66 K/uL (4.50-11.00)
[2025-07-07 23:41] LABS: Slide Review Reflex No
[2025-07-07 23:51] LABS: Troponin, Point-of-Care* 0.01 ng/ml (0.01-0.04)
[2025-07-07 23:54] LABS: Chloride* 101 mmol/L (96-114); Potassium* 3.7 mmol/L (3.6-5.1); Sodium* 138 mmol/L (135-149)
[2025-07-07 23:57] LABS: Anion Gap 13 mEq/L (7-15); Blood Urea Nitrogen* 16 mg/dL (7-30); Calcium* 8.8 mg/dL (8.4-10.6); Carbon Dioxide* 24 mmol/L (20-32); Creatinine* 0.8 mg/dL (0.5-1.5); Est. Creatinine Clearance* 59.61; Estimated Glomerular Filt Rate 88 ml/min; Ethanol* 0.10 % (0.01-0.03); Glucose* 125 mg/dL (60-115)
[2025-07-08] VITALS (35 sets, daily range): BP systolic 117–139; BP diastolic 60–80; PULSE 54–64; RESP 0–23; O2SAT 80–98
--- OUTSIDE RECORDS SUMMARY | 2025-07-08 00:11 | XMS_ITS | Clinical Summary ---
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 Left: Eye [employer] 08/09/2022 SN60WF.22. 5# / [id number] / Iol Sevier +22.5 Acrysof Iq Sn60wf - [id number] Implanted:Qty: 1 on 12/22/2017 by Rock Billy MD at [facility] Right: Eye [employer] 09/15/2021 SN60WF.22. 5# / [id number] / Insurance MEDICARE PART B HB ONLY MEDICARE PART A HB ONLY [facility] MEDICARE PB ONLY Advance Directives * Full Code (Latest Code Status on File) Date Activated Date Inactivated Comments 12/22/2017 10:39 AM 12/22/2017 4:11 PM * Full Code Date Activated Date Inactivated Comments 12/08/2017 11:42 AM 12/08/2017 5:34 PM * Full Code Date Activated Date Inactivated Comments 11/14/2008 8:59 AM 11/15/2008 1:44 PM Care Teams Employee Relations Administrator Relationship Specialty Start Date End Date Kolton Covarrubias MD PCP - General Family Practice 10/26/17
--- OUTSIDE RECORDS SUMMARY | 2025-07-08 00:11 | XMS_ITS | Clinical Summary ---
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 Gender Identity Not on file Sexual Orientation [...] complete this topic Insurance MEDICARE [employer] [place] MEDICARE SUPPLEMENT Advance Directives For more information, please contact: [phone] * Full Code (Latest Code Status on File) Date Activated Date Inactivated Comments 11/03/2022 4:52 AM 11/04/2022 6:19 PM All basic an d advanced life-sustaining interventions are performed as appropriate Question Answer Comments Code status determined by: Discussion with meli nt/ legal decision maker Care Teams Hoisting Pile Driving Engineer Relationship Specialty Start Date End Date Clinic, [address] [id number] PCP - General 11/04/22
[2025-07-08 00:53] LABS: Lactate* 2.4 mmol/L (0.5-1.9)
[2025-07-08 01:33] LABS: Appearance Urine Clear (Clear)
[2025-07-08 02:49] LABS: CDIFFEPI 027 PRESUMPTIVE NEGATIVE (Negative)
[2025-07-08 02:50] LABS: C.Difficile POSITIVE (Negative)
== END 2025-07-08 09:32 | disposition home or self-care (01) ==
PROVIDERS: Emergency Provider Family Medicine; PCP Physician Assistant Medical
DX: F10.120 Alcohol abuse with intoxication, uncomplicated (principal); R55 Syncope and collapse; B96.7 Clostridium perfringens [C. perfringens] as the cause of diseases classified elsewhere; A04.71 Enterocolitis due to Clostridium difficile, recurrent; R00.1 Bradycardia, unspecified; R82.90 Unspecified abnormal findings in urine; W19.XXXA Unspecified fall, initial encounter; Y90.0 Blood alcohol level of less than 20 mg/100 ml
CPT/HCPCS: 36415; 70450; 80048; 81001; 82077; 83605; 84484; 85025; 87040; 87086; 87186; 87493; 93005; 94761; 96360; 96361; 99284; 99285; J7030